=== PATIENT | female | born 1950 | race Caucasian/White ===

== ENCOUNTER 2017-04-03 00:27 | Emergency (ER) | payer OTHER ==
[2017-04-03] MEDS ORDERED: LABETALOL SYRINGE 5 MG/ML ONE (01:30)
[2017-04-03] MEDS ORDERED: methylPREDNISolone SOD SUCCI 125 MG/2 ML VIAL ONE (01:30)
[2017-04-03] MEDS ORDERED: PROCHLORPERAZINE 10 MG TAB ONE (01:30)
[2017-04-03] MEDS ORDERED: diphenhydrAMINE 50 MG/ML 1 ML VIAL ONE (01:30)
[2017-04-03] MEDS ORDERED: SODIUM CHLORIDE 0.9% 250 ML BAG ONE (01:30)
[2017-04-03] MEDS ORDERED: ONDANSETRON 4 MG/2 ML VIAL ONE (01:30)
[2017-04-03] MEDS ORDERED: SODIUM CHLORIDE 0.9% 1,000 ML BAG ONE (01:30)
[2017-04-03] MEDS ORDERED: KETOROLAC 30 MG/ML 1 ML VIAL ONE (01:30)
--- NOTE | 2017-04-03 05:42 | CT ---
PROCEDURE: CT HEAD Without Contrast HISTORY: 66-year-old female with headache. COMPARISON: None TECHNIQUE: CT imaging was obtained through the head. Coronal and sagittal reformations were performed. DOSE: Total Exam volume computed tomography dose index (CTDIvol) = 60.3 mGy and Dose Length Product (DLP) = 1072.3 mGY-cm. This CT exam was performed using one or more of the following dose reduction techniques: automated exposure control, adjustment of the mA and/or kV according to patient size, and/or use of iterative reconstruction technique. FINDINGS: There is no evidence of acute intracranial hemorrhage, mass effect, or midline shift. The ventricles, sulci, and cisternal spaces are within normal limits for age. The vega-white matter differentiation is preserved. 5 millimeter rounded calcific density adjacent to the left frontal bone, incompletely characterized but may represent a small meningioma or dural calcification. If further imaging evaluation is clinically desired, contrast enhanced MRI may be considered. Intracranial arterial calcifications. The bony structures are intact. Visualized portions of the orbits are within normal limits. Opacity in the right mastoid air cells, nonspecific, but may be due to mastoiditis. Opacification of much of the ethmoid and maxillary sinuses. Air-fluid levels in the bilateral maxillary sinuses and left ethmoid air cells, likely due to acute sinusitis. Mucosal thickening in the frontal sinuses. Retention cyst in the right sphenoid sinus. Debris identified in the left sphenoid sinus. IMPRESSION: 1. No CT evidence of acute intracranial abnormality. 2. Sinus disease, likely acute in the ethmoid and maxillary sinuses. 3. Opacity in the right mastoid air cells, nonspecific but may be due to mastoiditis. 4. 5 millimeter rounded calcific density adjacent to the left frontal bone, incompletely characterized but may represent a small meningioma or dural calcification. If further imaging evaluation is clinically desired, contrast enhanced MRI may be considered. 5. Other findings as detailed above.
== END 2017-04-03 04:10 | disposition home or self-care (01) ==
LOC: EC 00:27
DX: G43.909 Migraine, unspecified, not intractable, without status migrainosus (principal); I10 Essential (primary) hypertension; F17.200 Nicotine dependence, unspecified, uncomplicated; Z86.73 Personal history of transient ischemic attack (TIA), and cerebral infarction without residual deficits; Z79.899 Other long term (current) drug therapy; Z88.0 Allergy status to penicillin
CPT/HCPCS: 70450; 96361; 96365; 96375; 99283

== ENCOUNTER 2017-04-05 13:55 | Observation (INO) | payer OTHER ==
[2017-04-05] MEDS ORDERED: NITROGLYCERIN-D5W PMX 50 MG in DEXTROSE/WATER 1 250ML.BAG IV ONE (14:57)
[2017-04-05] MEDS ORDERED: MORPHINE SULFATE 10 MG/ML SYRINGE IV ONE (14:57)
--- NOTE | 2017-04-05 15:09 | ED ---
Headache HPI - General Chief Complaint: Headache Stated Complaint: migraines/high BP Time Seen by Provider: 04/05/17 14:34 Mode of arrival: wheelchair Limitations: no limitations - History of Present Illness Initial Comments: Patient is a 66-year-old female who presents with a chief complaint of headache for one week. The patient states that she does not have a history of headaches , and that she has been seen 3 different times this week for her headache. She states that she did see her primary care physician who switched her blood pressure medication because she was hypertensive. Patient returns today because her headache continues. The patient states that her headache was a gradual onset. She admits to sensitivity to light and sound, but most specifically movement. Patient states that she feels somewhat off balance. There are no alleviating factors. Timing is constant. Patient has a history of hypertension, and diabetes. She's been a smoker of one half packs per day since she was 17 years old. - Related Data Home Medications Medication Instructions Recorded Confirmed Albuterol Sulfate [Ventolin HFA] 1 - 2 puff INHALATION RT-Q6H PRN 12/31/1304/05 Cholecalciferol [Vitamin D3] 1,000 unit PO DAILY 12/31/13 04/05/17 Loratadine [Claritin] 10 mg PO DAILY 04/05/17 04/05/17 Losartan [Cozaar] 25 mg PO DAILY 04/05/17 04/05/17 Naproxen Sodium [Aleve] 220 mg PO BID PRN 04/05/17 04/05/17 Pediatric Multivitamin No.144 1 tab PO DAILY 04/05/17 04/05/17 [Children's Chewable Vitamin] SUMAtriptan SUCCINATE [Imitrex] 50 mg PO ONCE PRN 04/05/17 04/05/17 Vitamin B Complex 1 cap PO DAILY 04/05/17 04/05/17 predniSONE See Taper PO DAILY 04/05/17 04/05/17 Allergies Allergy/AdvReac Type Severity Reaction Status Date / Time amoxicillin [Amoxicillin] Allergy Rash/Hives Verified 04/05/17 14:31 Review of Systems ROS Statement: Those systems with pertinent positive or pertinent negative responses have been documented in the HPI. ROS Other: All systems not noted in ROS Statement are negative. Constitutional: Denies: fever Eyes: Reports: vision change ENT: Denies: ear pain, throat pain Respiratory: Denies: cough Cardiovascular: Denies: chest pain Endocrine: Denies: fatigue Gastrointestinal: Reports: nausea. Denies: abdominal pain, vomiting Genitourinary: Denies: dysuria Musculoskeletal: Denies: back pain Skin: Denies: rash Neurological: Reports: headache Past Medical History Past Medical History: Heart Failure, Diabetes Mellitus, Hyperlipidemia, Hypertension History of Any Multi-Drug Resistant Organisms: None Reported Past Surgical History: Tubal Ligation Past Psychological History: Depression, Panic Disorder Smoking Status: Current every day smoker Past Alcohol Use History: None Reported Past Drug Use History: None Reported General Exam Limitations: no limitations General appearance: alert, in no apparent distress Head exam: Present: atraumatic, normocephalic Eye exam: Present: PERRL ENT exam: Present: normal exam Neck exam: Present: normal inspection, full ROM Respiratory exam: Present: decreased breath sounds Cardiovascular Exam: Present: regular rate, normal rhythm GI/Abdominal exam: Present: soft. Absent: distended, tenderness Rectal exam: Present: deferred Extremities exam: Present: normal inspection Back exam: Present: normal inspection, full ROM Neurological exam: Present: alert, oriented X3, CN II-XII intact, normal gait. Absent: motor sensory deficit Psychiatric exam: Present: normal affect, normal mood Skin exam: Present: warm, dry, intact Course Vital Signs 04/05/17 04/05/17 14:02 15:54 Temperature 97.3 F L Pulse Rate 57 L 65 Respiratory 16 17 Rate Blood Pressure 189/77 171/73 O2 Sat by Pulse 97 94 L Oximetry Medical Decision Making - Medical Decision Making Patient presents with a chief complaint of a headache for a week without previous history of headaches. Review of chart shows the patient was diagnosed with migraine type headache on her last visit to the ER, and she had a normal CT of the head without contrast. On examination today, her blood pressure is 203/100 in the exam room. I spoke with Dr. Gallagher who would like to hold on a nitro drip currently, and check the patient's renal function. If the patient's renal function is stable, she'll be started on lisinopril and admitted to observation. EKG performed at 3:27 PM shows sinus bradycardia with a rate of 57 bpm. EKG is otherwise nonspecific 4:32 PM Laboratory evaluation this patient is unremarkable. Renal function is stable therefore patient was given 20 mg of lisinopril. She will be admitted to observation under Dr. Gallagher. - Lab Data Result diagrams: 04/05/17 14:49 04/05/17 14:49 Lab Results 04/05/17 04/05/17 Range/Units 14:49 14:49 WBC 14.2 H (3.8-10.6) k/uL RBC 4.52 (3.80-5.40) m/uL Hgb 13.9 (11.4-16.0) gm/dL Hct 42.2 (34.0-46.0) % MCV 93.3 (80.0-100.0) fL MCH 30.8 (25.0-35.0) pg MCHC 33.0 (31.0-37.0) g/dL RDW 14.2 (11.5-15.5) % Plt Count 213 (150-450) k/uL Neutrophils % 74 % Lymphocytes % 20 % Monocytes % 5 % Eosinophils % 1 % Basophils % 0 % Neutrophils # 10.4 H (1.3-7.7) k/uL Lymphocytes # 2.8 (1.0-4.8) k/uL Monocytes # 0.6 (0-1.0) k/uL Eosinophils # 0.2 (0-0.7) k/uL Basophils # 0.0 (0-0.2) k/uL Sodium 140 (137-145) mmol/L Potassium 4.3 (3.5-5.1) mmol/L Chloride 101 (98-107) mmol/L Carbon Dioxide 30 (22-30) mmol/L Anion Gap 9 mmol/L BUN 19 H (7-17) mg/dL Creatinine 0.70 (0.52-1.04) mg/dL Est GFR (MDRD) Af Amer >60 (>60 ml/min/1.73 sqM) Est GFR (MDRD) Non-Af >60 (>60 ml/min/1.73 sqM) Glucose 100 H (74-99) mg/dL Calcium 10.0 (8.4-10.2) mg/dL Total Bilirubin 0.7 (0.2-1.3) mg/dL AST 150 H (14-36) U/L ALT 275 H (9-52) U/L Alkaline Phosphatase 85 (38-126) U/L Total Protein 6.9 (6.3-8.2) g/dL Albumin 4.0 (3.5-5.0) g/dL Disposition Clinical Impression: Hypertension, Intractable headache Disposition: ADMITTED IP TO THIS HOSP Condition: Good Referrals: David Lindquist DO [Primary Care Provider] - 1-2 days Decision to Admit Reason: Admit from [facility] - Out of Hospital Transfer - Req. Specs Out of Hospital Transfer - Requested Specifics: Other Non-Acute
[2017-04-05 15:22] LABS: Basophils % (A) 0 %; CH 30.6; Eosinophils # (A) 0.2 k/uL (0-0.7); Eosinophils % (A) 1 %; HCT 42.2 % (34.0-46.0); HDW 2.37; HGB 13.9 gm/dL (11.4-16.0); Luc # (Auto) 0.11; Luc % (Auto) 1; Lymphocytes # (A) 2.8 k/uL (1.0-4.8); Lymphocytes % (A) 20 %; MCH 30.8 pg (25.0-35.0); MCV 93.3 fL (80.0-100.0); Mean Platelet Volume 9.2; Monocytes # (A) 0.6 k/uL (0-1.0); Monocytes % (A) 5 %; Neutrophils # (A) 10.4 k/uL (1.3-7.7); Neutrophils % (A) 74 %; RBC 4.52 m/uL (3.80-5.40); RDW 14.2 % (11.5-15.5); WBC 14.2 k/uL (3.8-10.6); WBC (Perox) 13.65
[2017-04-05] MEDS ORDERED: MORPHINE SULFATE 4 MG/ML SYRINGE IV ONE (15:30)
[2017-04-05 15:32] LABS: ALT 275 U/L (9-52); AST 150 U/L (14-36); Alkaline Phosphatase 85 U/L (38-126); Anion Gap 9 mmol/L; Blood Urea Nitrogen 19 mg/dL (7-17); Carbon Dioxide 30 mmol/L (22-30); Chloride 101 mmol/L (98-107); Glucose 100 mg/dL (74-99); Non-African American GFR(MDRD) >60 (>60 ml/min/1.73 sqM); Potassium 4.3 mmol/L (3.5-5.1); Sodium 140 mmol/L (137-145); Total Bilirubin 0.7 mg/dL (0.2-1.3); Total Protein 6.9 g/dL (6.3-8.2)
[2017-04-05] MEDS ORDERED: ONDANSETRON 4 MG/2 ML VIAL IVP STA (15:49)
[2017-04-05] MEDS ORDERED: LISINOPRIL 20 MG TAB PO STA (16:06)
[2017-04-05] MEDS ORDERED: NALOXONE 0.4 MG/ML 1 ML VIAL IV PRN (16:33)
[2017-04-05 19:00] VITALS: BMI 31.9
[2017-04-05] MEDS ORDERED: NAPROXEN 250 MG TAB PO PRN (19:16)
[2017-04-05] MEDS ORDERED: ALBUTEROL NEBULIZED 2.5 MG/3 ML INHALATION PRN (19:16)
[2017-04-05] MEDS ORDERED: SUMAtriptan SUCCINATE 50 MG TAB PO PRN (19:16)
--- NOTE | 2017-04-05 19:44 | P.HPIM ---
History of Present Illness 66-year-old female came in with comments of headache for going on for about a week patient does have history of typical migraine uncomplicated light bothers her patient's headache is bit better now patient that which is elevated initially was thought to have hypertensive emergency but the patient doesn't have any other symptoms of evidence emerges including confusion, chest pain, abdominal pain, shortness of breath. Patient's headache is contributing to her elevated blood pressure because of which I'm not increasing her antidepressant medications patient is given lisinopril earlier today in ER. Patient has normal kidney function. Patient denied any fever, chills, nausea, vomiting patient denied any nuchal rigidity does have leukocytosis secondary to prednisone she was receiving at home no fever no flulike symptoms. Her headache is constant patient does smoke half a pack of cigarettes a day Review of Systems REVIEW OF SYSTEMS: CONSTITUTIONAL: No fever, no malaise, no fatigue. HEENT: No recent visual problems or hearing problems. Denied any sore throat. CARDIOVASCULAR: No chest pain, orthopnea, PND, no palpitations, no syncope. PULMONARY: No shortness of breath, no cough, no hemoptysis. GASTROINTESTINAL: No diarrhea, no nausea, no vomiting, no abdominal pain. Normoactive bowel sounds. NEUROLOGICAL: no weakness, no numbness. HEMATOLOGICAL: Denies any bleeding or petechiae. GENITOURINARY: Denies any burning micturition, frequency, or urgency. MUSCULOSKELETAL/RHEUMATOLOGICAL: Denies any joint pain, swelling, or any muscle pain. ENDOCRINE: Denies any polyuria or polydipsia. The rest of the 14-point review of systems is negative. Past Medical History Past Medical History: Heart Failure, Diabetes Mellitus, Hyperlipidemia, Hypertension History of Any Multi-Drug Resistant Organisms: None Reported Past Surgical History: Tubal Ligation Past Anesthesia/Blood Transfusion Reactions: No Reported Reaction Past Psychological History: Depression, Panic Disorder Smoking Status: Current every day smoker Past Alcohol Use History: None Reported Past Drug Use History: None Reported - Past Family History Mother Additional Family Medical History / Comment(s): suicide Medications and Allergies Home Medications Medication Instructions Recorded Confirmed Type Albuterol Sulfate [Ventolin HFA] 1 - 2 puff INHALATION RT-Q6H PRN 12/31/1304/05 History Cholecalciferol [Vitamin D3] 1,000 unit PO DAILY 12/31/13 04/05/17 History Loratadine [Claritin] 10 mg PO DAILY 04/05/17 04/05/17 History Losartan [Cozaar] 25 mg PO DAILY 04/05/17 04/05/17 History Naproxen Sodium [Aleve] 220 mg PO BID PRN 04/05/17 04/05/17 History Pediatric Multivitamin No.144 1 tab PO DAILY 04/05/17 04/05/17 History [Children's Chewable Vitamin] SUMAtriptan SUCCINATE [Imitrex] 50 mg PO ONCE PRN 04/05/17 04/05/17 History Vitamin B Complex 1 cap PO DAILY 04/05/17 04/05/17 History predniSONE See Taper PO DAILY 04/05/17 04/05/17 History Allergies Allergy/AdvReac Type Severity Reaction Status Date / Time amoxicillin [Amoxicillin] Allergy Rash/Hives Verified 04/05/17 14:31 Physical Exam Vitals: Vital Signs Temp Pulse Pulse Resp BP BP Pulse Ox 04/05/17 18:26 18 04/05/17 18:24 97.4 F L 57 L 18 141/55 97 04/05/17 17:24 98.5 F 61 17 150/70 94 L 04/05/17 15:54 65 17 171/73 94 L 04/05/17 14:02 97.3 F L 57 L 16 189/77 97 Intake and Output 04/05/17 04/05/17 04/05/17 06:59 14:59 22:59 Other: Weight 77.111 kg 76.7 kg Patient Weight 04/06/17 06:59 Weight 76.7 kg PHYSICAL EXAMINATION: GENERAL: The patient is alert and oriented x3, patient isn't distress because of headache Well developed, well nourished. HEENT: Pupils are round and equally reacting to light. EOMI. No scleral icterus. No conjunctival pallor. Normocephalic, atraumatic. No pharyngeal erythema. No thyromegaly. CARDIOVASCULAR: S1 and S2 present. No murmurs, rubs, or gallops. PULMONARY: Chest is clear to auscultation, no wheezing or crackles. ABDOMEN: Soft, nontender, nondistended, normoactive bowel sounds. No palpable organomegaly. MUSCULOSKELETAL: No joint swelling or deformity. EXTREMITIES: No cyanosis, clubbing, or pedal edema. NEUROLOGICAL: Gross neurological examination did not reveal any focal deficits. SKIN: No rashes. Results CBC & Chem 7: 04/05/17 14:49 04/05/17 14:49 Labs: Abnormal Lab Results - Last 24 Hours (Table) 04/05/17 04/05/17 Range/Units 14:49 14:49 WBC 14.2 H (3.8-10.6) k/uL Neutrophils # 10.4 H (1.3-7.7) k/uL BUN 19 H (7-17) mg/dL Glucose 100 H (74-99) mg/dL AST 150 H (14-36) U/L ALT 275 H (9-52) U/L Thrombosis Risk Factor Assmnt - Choose All That Apply Any of the Below Risk Factors Present?: Yes Each Factor Represents 1 point: Abnormal pulmonary function (COPD), Hx of IBD, Obesity (BMI >25) Other Risk Factors: Yes Each Risk Factor Represents 2 Points: Age 61-74 years Other congenital or acquired thrombophilia - If yes, enter type in comment: No Thrombosis Risk Factor Assessment Total Risk Factor Score: 5 Thrombosis Risk Factor Assessment Level: High Risk Assessment and Plan Plan: #1 severe headache secondary to migraine neurology will be consulted will continue with her steroid we will use ketorolac for pain we will also order her Imitrex. #2 hypertension uncontrolled blood pressures secondary to headache pain control. #3 type 2 diabetes mellitus: Patient is not in any diabetic medications will obtain hemoglobin A1c #4 nicotine abuse: Counseling was provided
[2017-04-05] MEDS: PANTOPRAZOLE 40 MG/10 ML VIAL IVP SCH (21:44)
[2017-04-05] MEDS: KETOROLAC 30 MG/ML 1 ML VIAL IVP PRN (21:44)
[2017-04-05] MEDS: SODIUM CHLORIDE 0.9% 1,000 ML IV SCH (21:45)
[2017-04-06 01:05] LABS: Glucose,Whole Blood 132 mg/dL (75-99)
[2017-04-06] MEDS ORDERED: hydrALAZINE HCL 50 MG TAB PO STA (01:19)
[2017-04-06] MEDS: ONDANSETRON 4 MG/2 ML VIAL IVP PRN ×2 (01:33→12:03)
[2017-04-06] MEDS: KETOROLAC 30 MG/ML 1 ML VIAL IVP PRN ×3 (03:41→21:30)
[2017-04-06] MEDS: SODIUM CHLORIDE 0.9% 1,000 ML IV SCH ×2 (06:05→15:42)
[2017-04-06 07:26] LABS: CH 29.9; CHCM 31.1; HCT 41.1 % (34.0-46.0); HDW 2.22; HGB 13.3 gm/dL (11.4-16.0); MCH 31.3 pg (25.0-35.0); MCHC 32.3 g/dL (31.0-37.0); MCV 96.9 fL (80.0-100.0); Mean Platelet Volume 9.1; RBC 4.24 m/uL (3.80-5.40); RDW 15.1 % (11.5-15.5); WBC 16.4 k/uL (3.8-10.6)
[2017-04-06 08:02] LABS: ALT 199 U/L (9-52); AST 74 U/L (14-36); Alkaline Phosphatase 75 U/L (38-126); Anion Gap 7 mmol/L; Blood Urea Nitrogen 15 mg/dL (7-17); Calcium 9.3 mg/dL (8.4-10.2); Carbon Dioxide 32 mmol/L (22-30); Chloride 99 mmol/L (98-107); Glucose 94 mg/dL (74-99); Non-African American GFR(MDRD) >60 (>60 ml/min/1.73 sqM); Potassium 4.1 mmol/L (3.5-5.1); Sodium 138 mmol/L (137-145); Total Bilirubin 0.6 mg/dL (0.2-1.3); Total Protein 6.4 g/dL (6.3-8.2)
[2017-04-06] MEDS: NICOTINE 21MG/24HR PATCH TRANSDERM SCH (08:06)
[2017-04-06] MEDS ORDERED: ZOLPIDEM 5 MG TAB PO PRN (08:27)
[2017-04-06] MEDS: ALPRAZolam 0.25 MG TAB PO PRN ×2 (08:44→15:42)
[2017-04-06] MEDS: PANTOPRAZOLE 40 MG/10 ML VIAL IVP SCH (08:44)
[2017-04-06] MEDS: LOSARTAN 50 MG TAB PO SCH (08:46)
--- NOTE | 2017-04-06 08:51 | P.PN ---
Subjective Since headache is better but is tremulous patient apparently didn't sleep for few days which is contributing to her headache patient appears to be more anxious and depressed. I'll consult psychiatry patient will be started on Xanax and as-needed basis for a anxiety will be given Dainamichael vázquez have headache although is better patient becomes nauseous because of ketorolac I believe patient is on Protonix which will continue if he continued to become nauseous and throws up will discontinue ketorolac. Patient is tremulous because of steroid which will be discontinued, which is contributing to her anxiety and lack of sleep. Constitutional: Tremulous anxious Cardio vascular: denied any chest pain, palpitations Gastrointestinal denied any nausea vomiting Pulmonary: Denied any shortness of breath cough Neurologic denied any new focal deficits Objective - Vital Signs Vital signs: Vital Signs Temp 98.3 F 04/06/17 08:00 Pulse 92 04/06/17 08:00 Resp 20 04/06/17 08:00 BP 168/84 04/06/17 08:00 Pulse Ox 96 04/06/17 08:00 Intake & Output 04/05/17 04/06/17 04/06/17 18:59 06:59 18:59 Output Total 1150 Balance -1150 Weight 76.7 kg Output: Urine 1150 Other: Voiding Method Toilet - Exam PHYSICAL EXAMINATION: GENERAL: The patient is alert and oriented x3, not in any acute distress. tremulous and anxious HEENT: Pupils are round and equally reacting to light. EOMI. No scleral icterus. No conjunctival pallor. Normocephalic, atraumatic. No pharyngeal erythema. No thyromegaly. CARDIOVASCULAR: S1 and S2 present. No murmurs, rubs, or gallops. PULMONARY: Chest is clear to auscultation, no wheezing or crackles. ABDOMEN: Soft, nontender, nondistended, normoactive bowel sounds. No palpable organomegaly. MUSCULOSKELETAL: No joint swelling or deformity. EXTREMITIES: No cyanosis, clubbing, or pedal edema. NEUROLOGICAL: Gross neurological examination did not reveal any focal deficits. SKIN: No rashes. - Labs CBC & Chem 7: 04/06/17 06:17 04/06/17 06:17 Labs: Abnormal Lab Results - Last 24 Hours (Table) 04/05/17 04/05/17 04/06/17 Range/Units 14:49 14:49 01:03 WBC 14.2 H (3.8-10.6) k/uL Neutrophils # 10.4 H (1.3-7.7) k/uL Carbon Dioxide (22-30) mmol/L BUN 19 H (7-17) mg/dL Glucose 100 H (74-99) mg/dL POC Glucose (mg/dL) 132 H (75-99) mg/dL AST 150 H (14-36) U/L ALT 275 H (9-52) U/L 04/06/17 04/06/17 Range/Units 06:17 06:17 WBC 16.4 H (3.8-10.6) k/uL Neutrophils # (1.3-7.7) k/uL Carbon Dioxide 32 H (22-30) mmol/L BUN (7-17) mg/dL Glucose (74-99) mg/dL POC Glucose (mg/dL) (75-99) mg/dL AST 74 H (14-36) U/L ALT 199 H (9-52) U/L Assessment and Plan Plan: #1 severe headache secondary to migraine neurology will be consulted will continue ketorolac for pain we will also order her Imitrex. #2 hypertension uncontrolled blood pressures secondary to headache pain control. #3 type 2 diabetes mellitus: Patient is not in any diabetic medications will obtain hemoglobin A1c #4 nicotine abuse: Counseling was provided 5 insomnia, depression and anxiety
[2017-04-06] MEDS ORDERED: predniSONE 10 MG TAB PO SCH (09:00)
[2017-04-06] MEDS ORDERED: LOSARTAN 50 MG TAB PO SCH (09:00)
[2017-04-06 17:34] VITALS: RESP 20
--- NOTE | 2017-04-06 22:52 | P.CNNES ---
History of Present Illness Consult date: 04/06/17 Reason for Consult: Patient admitted with chronic headaches. History of Present Illness: This patient is a 66-year-old left-handed white female who is being evaluated for intractable headache pain. Patient states that she has been dealing with a severe headache for the past 1 week. The headaches are mostly bifrontal and bitemporal in location. She had seen her primary care physician in [place] and was advised to go to the emergency room due to the severity of her headaches. She was seen in the emergency room on 04/03/2017 and underwent a computed tomography scan of the brain. A CAT scan of the brain revealed no acute intracranial abnormality however there was finding of a possible left frontal meningioma. Patient denies any previous history of abnormal CAT scan of the brain. Patient was discharged from the ER on 04/03/2017 but returned to the ER yesterday as her headaches still became more severe and intense. She was admitted to hospital for further management. As noted the CAT scan of the brain performed on 04/03/2017 revealed a 5 mm calcified density in the left frontal bone. It was recommended the patient have an enhanced MRI of the brain for further assessment. Patient states that she does get bifrontal headaches. They do seem to be slightly more severe on her left side. She is also noting increase neck pain over the last 2 weeks. She does do a lot of crocheting at home and does tend to keep her head in a flexed position frequently when she is sitting. She does have evidence of bilateral occipital pain on palpation as well today. She has been given some pain medications which only helps to take away the edge edge off in terms of the pain severity. We did review the results of the CAT scan today with the patient. We are recommending that she should have a MRI of the brain for further evaluation as recommended by radiology. Patient states that her headache pain intensity is 10 over 10 in intensity. She states that the intensity is not really E since last week. She was given some Toradol which has taken the edge off of the pain but still seems to recur quite intense throughout the day. Patient has no previous history of head trauma or head injury. She denies any whiplash injury to the neck. She has no previous history of migraine headaches in the past. The patient is now admitted and neurology has been consulted for further evaluation and recommendations. Review of Systems Constitutional: Denies chills, Denies fever Eyes: denies blurred vision, denies pain Ears, nose, mouth and throat: Denies headache, Denies sore throat Cardiovascular: Denies chest pain, Denies shortness of breath Respiratory: Denies cough Gastrointestinal: Denies abdominal pain, Denies diarrhea, Denies nausea, Denies vomiting Genitourinary: Denies dysuria, Denies hematuria Musculoskeletal: Denies myalgias Integumentary: Denies pruritus, Denies rash Neurological: Reports confusion, Reports headaches, Reports migraines, Reports paresthesias, Denies numbness, Denies weakness Psychiatric: Denies anxiety, Denies depression Endocrine: Denies fatigue, Denies weight change Past Medical History Past Medical History: Heart Failure, Diabetes Mellitus, Hyperlipidemia, Hypertension History of Any Multi-Drug Resistant Organisms: None Reported Past Surgical History: Tubal Ligation Past Anesthesia/Blood Transfusion Reactions: No Reported Reaction Past Psychological History: Depression, Panic Disorder Smoking Status: Current every day smoker Past Alcohol Use History: None Reported Past Drug Use History: None Reported - Past Family History Mother Additional Family Medical History / Comment(s): suicide Medications and Allergies Home Medications Medication Instructions Recorded Confirmed Type Albuterol Sulfate [Ventolin HFA] 1 - 2 puff INHALATION RT-Q6H PRN 12/31/1304/05 History Cholecalciferol [Vitamin D3] 1,000 unit PO DAILY 12/31/13 04/05/17 History Loratadine [Claritin] 10 mg PO DAILY 04/05/17 04/05/17 History Losartan [Cozaar] 25 mg PO DAILY 04/05/17 04/05/17 History Naproxen Sodium [Aleve] 220 mg PO BID PRN 04/05/17 04/05/17 History Pediatric Multivitamin No.144 1 tab PO DAILY 04/05/17 04/05/17 History [Children's Chewable Vitamin] SUMAtriptan SUCCINATE [Imitrex] 50 mg PO ONCE PRN 04/05/17 04/05/17 History Vitamin B Complex 1 cap PO DAILY 04/05/17 04/05/17 History predniSONE See Taper PO DAILY 04/05/17 04/05/17 History Omeprazole [PriLOSEC] 40 mg PO GAEL #14 04/06/17 Rx Allergies Allergy/AdvReac Type Severity Reaction Status Date / Time amoxicillin [Amoxicillin] Allergy Rash/Hives Verified 04/05/17 14:31 Physical Examination - Vital Signs Vital Signs: Vital Signs Temp Pulse Pulse Resp BP BP BP 04/06/17 11:00 97.4 F L 75 24 167/88 04/06/17 08:00 98.3 F 92 20 168/84 04/06/17 03:55 76 20 156/58 04/06/17 00:40 98.3 F 84 18 220/90 190/92 04/05/17 21:52 18 04/05/17 21:41 98.3 F 72 18 138/94 04/05/17 18:26 18 04/05/17 18:24 97.4 F L 57 L 18 141/55 04/05/17 17:24 98.5 F 61 17 150/70 04/05/17 15:54 65 17 171/73 04/05/17 14:02 97.3 F L 57 L 16 189/77 Pulse Ox 04/06/17 11:00 95 04/06/17 08:00 96 04/06/17 03:55 95 04/06/17 00:40 92 L 04/05/17 21:52 04/05/17 21:41 95 04/05/17 18:26 04/05/17 18:24 97 04/05/17 17:24 94 L 04/05/17 15:54 94 L 04/05/17 14:02 97 Intake and Output 04/05/17 04/06/17 04/06/17 22:59 06:59 14:59 Intake Total 200 Output Total 350 800 550 Balance -350 -800 -350 Intake: Oral 200 Output: Urine 350 800 550 Other: Voiding Method Toilet Weight 76.7 kg - Constitutional General appearance: average body habitus, cooperative - EENT EENT: PERRL, mucous membranes moist - Respiratory Respiratory: lungs clear, normal breath sounds - Cardiovascular Cardiovascular: regular rate, normal S1, normal S2 Extremities: no peripheral edema bilaterally - Gastrointestinal Gastrointestinal: normoactive bowel sounds - Integumentary Integumentary: normal - Neurologic Cranial nerve examination: PERRL, EOMI, VFF, V1/V2/V3 grossly intact, face symmetric, tongue midline, intact gag reflex, intact corneal reflex, normal palatal elevation Speech examination: intact Motor examination - right side: 4/5: biceps, triceps, wrist flexion, wrist extension, escrow assistant, hip flexors, knee extensors, dorsiflexion, toe extension (EHL) , plantarflexion Motor examination - left side: 4/5: biceps, triceps, wrist flexion, wrist extension, escrow assistant, hip flexors, knee extensors, dorsiflexion, toe extension (EHL) , plantarflexion Detailed sensory examination: intact Reflex and gait examination: intact Reflexes: 1+: ankle, bicep, knee, tricep - Musculoskeletal Musculoskeletal: no pain - Psychiatric Psychiatric: mood/affect appropriate, cooperative Results - Laboratory Findings CBC and BMP: 04/06/17 06:17 04/06/17 06:17 Abnormal Lab Findings: Abnormal Labs 04/05/17 04/05/17 04/06/17 14:49 14:49 01:03 WBC 14.2 H Neutrophils # 10.4 H Carbon Dioxide BUN 19 H Glucose 100 H POC Glucose (mg/dL) 132 H AST 150 H ALT 275 H 04/06/17 04/06/17 06:17 06:17 WBC 16.4 H Neutrophils # Carbon Dioxide 32 H BUN Glucose POC Glucose (mg/dL) AST 74 H ALT 199 H Assessment and Plan (1) Occipital neuritis Current Visit: Yes Status: Acute SNOMED Code(s): 92865914 (2) Hypertensive encephalopathy Current Visit: Yes Status: Acute SNOMED Code(s): 25419976 (3) Intractable headache Current Visit: Yes Status: Acute SNOMED Code(s): 96181007 (4) Hypertension Current Visit: Yes Status: Acute SNOMED Code(s): 24119951 Plan: This patient is a 66-year-old female who was admitted to hospital with intractable headache pain. She is been suffering with recurrent headache symptoms for the past 1 week. She was seen in the emergency room at [facility] on 04/03/2015. She underwent a computed tomography scan of the brain and was discharged after receiving some pain medication. Headache intensity worsened and she was brought back to the emergency room on 2016. She was admitted to Hospital. Her neurological examination reveals the patient to have bilateral occipital neuritis. We've also recommended that she undergo laboratory testing to rule out temporal arteritis. We did review the computed tomography scan of the brain results with the patient in detail today. We are recommending an MRI of the brain for further evaluation of the possible left frontal lobe meningioma. We recommend patient undergo bilateral occipital nerve block procedure for treatment of the occipital neuritis. She is also instructed in applying moist heat to the head and neck region daily even after the procedure is completed. We will continue close neurological follow-up of this patient during this admission. Her overall prognosis at this time remains guarded. Time with Patient: Greater than 30
[2017-04-07] MEDS: SODIUM CHLORIDE 0.9% 1,000 ML IV SCH ×2 (00:49→09:30)
[2017-04-07] MEDS: ALPRAZolam 0.25 MG TAB PO PRN ×2 (02:09→08:12)
[2017-04-07] MEDS: KETOROLAC 30 MG/ML 1 ML VIAL IVP PRN ×3 (04:05→14:56)
[2017-04-07] MEDS: PANTOPRAZOLE 40 MG/10 ML VIAL IVP SCH (08:05)
[2017-04-07] MEDS: NICOTINE 21MG/24HR PATCH TRANSDERM SCH (08:06)
[2017-04-07] MEDS: LOSARTAN 50 MG TAB PO SCH (09:00)
[2017-04-07 09:17] VITALS: BP 141/53; PULSE 79; TEMP 97.5
--- NOTE | 2017-04-07 11:57 | P.CN ---
Psychiatric Consult - . Consult date: 04/07/17 Consult:: 04/07/17 11:51 IDENTIFYING DATA: 66-year-old female patient HPI: patient is admitted to the medical floor [facility] with complaints of a headache and elevated blood pressure phone 1 weeks time. She does state currently that her headache is better. She is eating better now. She does relate some recent stress in terms announcing I did with her ex- whom she lives with. She states that he does get mad at her. She denies any significant depression but admits to having anxiety and being a worrier. She said when she had the migraine headaches she had some feelings like she would be better off if she weren't here but no thoughts of suicide.per staff she was exhibiting some symptoms of anxiety yesterday and seemed to have benefit with when necessary Xanax PAST PSYCHIATRIC HISTORY: she has seen a counselor in the past. She has been on Paxil in the past which she came off of because she didn't think she needed it, does state that it helped her. She never had any psychiatric hospitalizations. Says when she was younger she had a suicide attempt a couple of times by overdose. PMH:migraine, diabetes mellitus, hyperlipidemia, hypertension, heart failure ALLERGIES: amoxicillin MEDICATIONS: Ventolin when necessary, Xanax 0.25 mg 3 times a day when necessary , Toradol, Cozaar, Narcan when necessary, Naprosyn, Habitrol, Zofran, Protonix, Imitrex when necessary, Ambien when necessary CHEMICAL DEPENDENCY HISTORY: she does smoke cigarettes but otherwise denies drugs or alcohol use. FAMILY PSYCHIATRIC HISTORY: her mom had history of depression and committed suicide FAMILY CHEMICAL DEPENDENCY HISTORY: none known at this time SOCIAL HISTORY: currently lives with her ex-. She is not currently working. She's been 3 times and 3 times. She has 3 children. MENTAL STATUS EXAM: she is alert and cooperative with the interview. Her speech is fluent, not rapid or pressured. Her thought processes organized. Her mood is described as "feel good." She denies any recent or current thoughts of harm to self or others. No evidence of psychosis or agitation. Cognitively she appears very grossly intact. IMPRESSIONS: generalized anxiety disorder PLAN: we discussed the treatment option of reinitiating Paxil to help treat anxiety, which she seems to have had a positive response to in the past. Patient wishes not to initiate at this time due to concern of some side effects. We'll provide the patient with outpatient referral sheet for initiating outpatient treatment. Psychiatry can follow up with the patient to monitor her status.
--- NOTE | 2017-04-07 13:48 | P.DS ---
Providers Date of admission: 04/05/17 16:33 Attending physician: Sweetie Gallagher Consults: 04/05/17 19:35 Consult Physician Routine Consulting Provider: Nathalia Doherty Consult Reason/Comments: Headache Do you want consulting provider notified?: Yes 04/06/17 08:42 Consult Physician Urgent Consulting Provider: Danica Figueredo Consult Reason/Comments: agitation, restless Do you want consulting provider notified?: Yes 04/06/17 15:59 Consult Physician Urgent Consulting Provider: Mc Ramsey Consult Reason/Comments: anxiety Do you want consulting provider notified?: Yes 04/07/17 08:00 Consult to Anesthesia Urgent Consulting Provider: Anesthesia,Services Consult Reason/Comments: Bilateral occipital nerve blocks. Primary care physician: David Lindquist [facility] Course: Since headache is better but is tremulous patient apparently didn't sleep for few days which is contributing to her headache patient appears to be more anxious and depressed. I'll consult psychiatry patient will be started on Xanax and as-needed basis for a anxiety will be given Tera vázquez have headache although is better patient becomes nauseous because of ketorolac I believe patient is on Protonix which will continue if he continued to become nauseous and throws up will discontinue ketorolac. Patient is tremulous because of steroid which will be discontinued, which is contributing to her anxiety and lack of sleep. 04/07/2017 Patient's symptoms significantly improved after Xanax and discontinuation of prednisone. Patient was able to sleep last night patient is looking much better today patient further workup with MRI and the EEG can be done as an outpatient. Neurology believes patient has occipital neuralgia for which the recommending anesthesia to do occipital nerve block for which patient will be referred to anesthesia as an outpatient. Patient will be discharged today. Patient will follow with psychiatry as an outpatient PHYSICAL EXAMINATION: GENERAL: The patient is alert and oriented x3, not in any acute distress. Well developed, well nourished. HEENT: Pupils are round and equally reacting to light. EOMI. No scleral icterus. No conjunctival pallor. Normocephalic, atraumatic. No pharyngeal erythema. No thyromegaly. CARDIOVASCULAR: S1 and S2 present. No murmurs, rubs, or gallops. PULMONARY: Chest is clear to auscultation, no wheezing or crackles. ABDOMEN: Soft, nontender, nondistended, normoactive bowel sounds. No palpable organomegaly. MUSCULOSKELETAL: No joint swelling or deformity. EXTREMITIES: No cyanosis, clubbing, or pedal edema. NEUROLOGICAL: Gross neurological examination did not reveal any focal deficits. SKIN: No rashes. #1 severe headache secondary to migraine, occipital neuralgia and prednisone associated #2 hypertension uncontrolled blood pressures secondary to headache pain control. #3 type 2 diabetes mellitus: Patient is not in any diabetic medications will obtain hemoglobin A1c #4 nicotine abuse: Counseling was provided 5 insomnia, depression and anxiety Patient Condition at Discharge: Good Plan - Discharge Summary Discharge Rx Participant: Yes New Discharge Prescriptions: New Omeprazole [PriLOSEC] 40 mg PO -BRKFST #14 capsule. ALPRAZolam [Xanax] 0.25 mg PO TID PRN #30 tab PRN Reason: Anxiety Zolpidem [Ambien] 5 mg PO HS PRN #10 tab PRN Reason: Insomnia Continue Cholecalciferol [Vitamin D3] 1,000 unit PO DAILY Albuterol Sulfate [Ventolin HFA] 1 - 2 puff INHALATION RT-Q6H PRN PRN Reason: Shortness Of Breath Vitamin B Complex 1 cap PO DAILY Pediatric Multivitamin No.144 [Children's Chewable Vitamin] 1 tab PO DAILY SUMAtriptan SUCCINATE [Imitrex] 50 mg PO ONCE PRN PRN Reason: Migraine Headache Naproxen Sodium [Aleve] 220 mg PO BID PRN PRN Reason: Pain Loratadine [Claritin] 10 mg PO DAILY Losartan [Cozaar] 25 mg PO DAILY Discontinued predniSONE See Taper PO DAILY Discharge Medication List Albuterol Sulfate [Ventolin HFA] 1 - 2 puff INHALATION RT-Q6H PRN 12/31/13 [ History] Cholecalciferol [Vitamin D3] 1,000 unit PO DAILY 12/31/13 [History] Loratadine [Claritin] 10 mg PO DAILY 04/05/17 [History] Losartan [Cozaar] 25 mg PO DAILY 04/05/17 [History] Naproxen Sodium [Aleve] 220 mg PO BID PRN 04/05/17 [History] Pediatric Multivitamin No.144 [Children's Chewable Vitamin] 1 tab PO DAILY 04/05 [History] SUMAtriptan SUCCINATE [Imitrex] 50 mg PO ONCE PRN 04/05/17 [History] Vitamin B Complex 1 cap PO DAILY 04/05/17 [History] Omeprazole [PriLOSEC] 40 mg PO GAEL #14 capsule. 04/06/17 [Rx] ALPRAZolam [Xanax] 0.25 mg PO TID PRN #30 tab 04/07/17 [Rx] Zolpidem [Ambien] 5 mg PO HS PRN #10 tab 04/07/17 [Rx] Follow up Appointment(s)/Referral(s): Tay Doherty MD [STAFF PHYSICIAN] - 1 Week David Lindquist DO [Primary Care Provider] - 3 Days Activity/Diet/Wound Care/Special Instructions: ok to discharge home. Follow up phone call with Dr. Doherty in am regarding scheduling O.P. EEG, MRI, and possibly Occipital Nerve Block if warranted. Call M.D. or return to E.R. for worsening symptoms, problems, or concerns. CALL DR DOHERTY'S OFFICE SO THEY CAN FAX ORDER OVER FOR TEST TO MRI. TO CALL MRI SCHEDULING TOMORROW [phone] TO SCHEDULE OUTPATIENT MRI WITH AND WITHOUT CONTRAST AND MRA OF THE BRAIN. DIAGNOSIS: INTRACTABLE HEADACHES AND MENIGIOMA. TO CALL PAIN SERVICES TOMORROW AT [phone] FOR EVALUATION OF OCCIPITAL NERVE BLOCK. FOLLOW UP WITH DR DOHERTY IN 2 WEEKS, SOONER IF PROBLEMS OR CONCERNS. HE WILL ORDER EEG AT THAT TIME. Discharge Disposition: HOME SELF-CARE
--- NOTE | 2017-04-07 16:05 | P.PN ---
Subjective Progress Note Date: 04/07/17 This patient is a 66-year-old female seen yesterday neurology consultation for intractable headaches. She was found to have evidence of occipital neuritis. Her routine computed tomography scan of the brain revealed a questionable meningioma. We have recommended that she undergo an MRI and MRA of the brain for further evaluation. Patient's headache symptoms today is much improved. She is anxious to be discharged. We have recommended that she would need to have all of the studies performed as outpatient in follow-up for those results in 1-2 weeks following discharge. She has been seen by psychiatry today for evaluation of anxiety disorder. She does have evidence suggesting generalized anxiety disorder. Treatment options were discussed with the patient. She is to be started on Paxil. She is to follow-up in the outpatient psychiatry clinic. Patient continues to do well in terms of her headaches. We still would recommend that she follow up in the anesthesia department to have bilateral occipital nerve block procedures done as outpatient. This should significantly improve her overall headaches from recurring. We will continue close neurological follow-up for the patient. She is being readied for discharge home later today. Overall prognosis at this time remains guarded. Objective - Vital Signs Vital signs: Vital Signs Temp 97.5 F L 04/07/17 07:00 Pulse 79 04/07/17 07:00 Resp 20 04/07/17 07:00 BP 141/53 04/07/17 07:00 Pulse Ox 93 L 04/07/17 07:00 Intake & Output 04/06/17 04/07/17 04/07/17 18:59 06:59 18:59 Intake Total 200 600 Output Total 550 1100 Balance -350 -1100 600 Weight 76.7 kg Intake: Oral 200 600 Output: Urine 550 1100 Other: Voiding Method Toilet Toilet Toilet # Voids 1 3 - Exam Physical examination: PHYSICAL EXAMINATION: Patient is resting comfortably in bed. VITAL SIGNS: Blood pressure is [141/53]. Heart rate is [79]. Respiration is [20] . Temperature is [97.5]. HEENT: Head is atraumatic, neck is supple, there were no carotid bruits. CHEST: Lungs are clear to auscultation and percussion. CARDIAC: S1, S2 normal rate and rhythm. There is no murmur. ABDOMEN: Soft and nontender. Bowel sounds are present. EXTREMITIES: There is no pedal edema. Peripheral pulses are present. Neurological examination: Patient has a normal neurological examination today. She has minimal evidence of occipital tenderness to palpation bilaterally. - Labs CBC & Chem 7: 04/06/17 06:17 04/06/17 06:17 Labs: Abnormal Lab Results - Last 24 Hours (Table) 04/05/17 04/07/17 Range/Units 14:49 06:01 Hemoglobin A1c 6.5 H (4.0-6.0) % C-Reactive Protein 10.2 H (<10.0) mg/L Assessment and Plan (1) Occipital neuritis Status: Acute SNOMED Code(s): 94514694 (2) Hypertensive encephalopathy Status: Acute SNOMED Code(s): 18618500 (3) Intractable headache Status: Acute SNOMED Code(s): 79596461 (4) Hypertension Status: Acute SNOMED Code(s): 96877042 Plan: This patient is a 66-year-old female who was admitted to hospital with intractable headache pain. She is been suffering with recurrent headache symptoms for the past 1 week. She was seen in the emergency room at [facility] on 04/03/2015. She underwent a computed tomography scan of the brain and was discharged after receiving some pain medication. Headache intensity worsened and she was brought back to the emergency room on 2016. She was admitted to Hospital. Her neurological examination reveals the patient to have bilateral occipital neuritis. We've also recommended that she undergo laboratory testing to rule out temporal arteritis. We did review the computed tomography scan of the brain results with the patient in detail today. We are recommending an MRI of the brain for further evaluation of the possible left frontal lobe meningioma. We recommend patient undergo bilateral occipital nerve block procedure for treatment of the occipital neuritis. She is also instructed in applying moist heat to the head and neck region daily even after the procedure is completed. Patient has responded well today to treatment. She would like to be discharged home and will follow-up in the outpatient clinic for treatment of her occipital neuritis with a occipital nerve block procedure through anesthesia department. She will also be scheduled for MRI and MRA of the brain which may be done in the outpatient setting. Patient should follow-up in the outpatient neurology clinic in 1-2 weeks. We will continue close neurological follow-up of this patient during this admission. Her overall prognosis at this time remains guarded.
== END 2017-04-07 15:54 | disposition home or self-care (01) ==
LOC: EC 13:55 → 6PED 16:33
PROVIDERS: ADMIT Internal Medicine; ATTEND Internal Medicine
DX: G43.909 Migraine, unspecified, not intractable, without status migrainosus (principal); E11.9 Type 2 diabetes mellitus without complications; F32.9 Major depressive disorder, single episode, unspecified; G47.00 Insomnia, unspecified; M54.81 Occipital neuralgia; F17.210 Nicotine dependence, cigarettes, uncomplicated; Z79.899 Other long term (current) drug therapy; Z79.52 Long term (current) use of systemic steroids; Z88.0 Allergy status to penicillin; E78.5 Hyperlipidemia, unspecified; I11.0 Hypertensive heart disease with heart failure; I50.9 Heart failure, unspecified; F41.0 Panic disorder [episodic paroxysmal anxiety]; K58.9 Irritable bowel syndrome, unspecified; J44.9 Chronic obstructive pulmonary disease, unspecified; E66.9 Obesity, unspecified; Z68.31 Body mass index [BMI] 31.0-31.9, adult; M79.2 Neuralgia and neuritis, unspecified; I67.4 Hypertensive encephalopathy
CPT/HCPCS: 96361 ×2; 96375 ×2; 96376 ×2; 96374; 99285; 36415; 93005; 80053 ×2; 80074; 85652; 85025; 85027; 86140; 83036; G0378 ×3; S4990; J2270; J2405 ×2; J1885 ×3; C9113 ×3; 54150

== ENCOUNTER 2017-05-07 17:34 | Observation (INO) | payer OTHER ==
[2017-05-07] MEDS ORDERED: ONDANSETRON 4 MG/2 ML VIAL IVP STA (18:06)
[2017-05-07] MEDS ORDERED: HYDROmorphone 1 MG/ML 1 ML SYRINGE IVP STA (18:06)
[2017-05-07] MEDS ORDERED: cloNIDine HCL 0.1 MG TAB PO STA (18:12)
--- NOTE | 2017-05-07 18:15 | ED ---
General Adult HPI - General Chief complaint: Chest Pain Stated complaint: HTN Time Seen by Provider: 05/07/17 17:45 Source: patient, EMS, RN notes reviewed, old records reviewed Mode of arrival: EMS Limitations: no limitations - History of Present Illness Initial comments: Chief complaint history of present illness a 66-year-old female here with a complaint of headache and high blood pressure. Patient reports that since April 04 been having headaches associated with high blood pressure. She used to be on Tenoretic. At that time switch first over the Cozaar. She's been told to take Catapres 0.11 her blood pressure is elevated and she has a headache. She reports is normally helps. She has only taken Aleve without much success. Patient reports headache sometimes become worse and migrainous like occasionally has photophobia. Nausea but no vomiting. No stiff neck no injuries. No neuro deficits. - Related Data Home Medications Medication Instructions Recorded Confirmed Albuterol Sulfate [Ventolin HFA] 1 - 2 puff INHALATION RT-Q6H PRN 12/31/1305/07 Cholecalciferol [Vitamin D3] 1,000 unit PO DAILY 12/31/13 05/07/17 Loratadine [Claritin] 10 mg PO DAILY 04/05/17 05/07/17 Losartan [Cozaar] 25 mg PO BID 04/05/17 05/07/17 Vitamin B Complex 1 cap PO DAILY 04/05/17 05/07/17 Atorvastatin [Lipitor] 40 mg PO HS 05/07/17 05/07/17 Nicotine [Nicoderm Cq] 1 patch TRANSDERM DAILY 05/07/17 05/07/17 Omeprazole [PriLOSEC] 40 mg PO DAILY 05/07/17 05/07/17 Potassium Chloride [Klor-Con 20] 20 meq PO DAILY 05/07/17 05/07/17 cloNIDine HCL [Catapres] 0.1 mg PO BID 05/07/17 05/07/17 Allergies Allergy/AdvReac Type Severity Reaction Status Date / Time amoxicillin [Amoxicillin] Allergy Rash/Hives Verified 05/07/17 18:46 Review of Systems ROS Statement: Those systems with pertinent positive or pertinent negative responses have been documented in the HPI. Review of systems. Mild headache no photophobia chronic neck discomfort for mild arthritis. No chest pain or shortness of breath no abdominal pain no nausea no vomiting no diarrhea no neuro deficits. All systems are reviewed. Past medical problems significant for recurrent headaches over the past 6 weeks. Nausea no vomiting no stiff neck. Elevated blood pressure during that time as well. Patient has diet-controlled diabetes mellitus. Hyperlipidemia and hypertension. Patient's surgeries include 2 ligation only. Family history rate cancer colon cancer. Patient has ALLERGIES to penicillin. She quit smoking 9 days ago. Denies alcohol use. ROS Other: All systems not noted in ROS Statement are negative. Past Medical History Past Medical History: Heart Failure, Diabetes Mellitus, Hyperlipidemia, Hypertension History of Any Multi-Drug Resistant Organisms: None Reported Past Surgical History: Tubal Ligation Past Anesthesia/Blood Transfusion Reactions: No Reported Reaction Past Psychological History: Depression, Panic Disorder Smoking Status: Current every day smoker Past Alcohol Use History: None Reported Past Drug Use History: None Reported - Past Family History Mother Additional Family Medical History / Comment(s): suicide General Exam - General Exam Comments Initial Comments: General: The patient is awake and alert, patient has a headache and blood pressure en route was over 200 patient received IV fluids. On arrival to emergency room blood pressure was initially 217/98. It came down within a short period time to 188/90. Mild headache. The patient will receive IV pain medication and Catapres. Vital signs shows temperature 97.3 pulse 72 respiratory rate 16 pulse ox 96% room air blood pressure initially 217/98. Eye: Pupils are equal, round and reactive to light, extra-ocular movements are intact ; there is normal conjunctiva bilaterally. No signs of icterus. Ears, nose, mouth and throat: There are moist mucous membranes and no oral lesions. recently finished antibiotics for sinusitis described in the MRI performed 13 days ago. Neck: The neck is supple, mild neck discomfort, no meningismus., no carotid bruit. Cardiovascular: There is a regular rate and rhythm. No murmur, rub or gallop is appreciated. Respiratory: Lungs are clear to auscultation, respirations are non-labored, breath sounds are equal. No wheezes, stridor, rales, or rhonchi. Gastrointestinal: Soft, non-distended, non-tender abdomen without masses or organomegaly noted. There is no rebound or guarding present. No CVA tenderness. Bowel sounds are unremarkable. Back: There is no tenderness to palpation in the midline. There is no obvious deformity. No rashes noted. Musculoskeletal: Normal ROM, no tenderness, There is no pedal edema. There is no calf tenderness or swelling. Sensation intact. Pulses equal bilaterally 2+. Neurological: CN II-XII intact, There are no obvious motor or sensory deficits. Coordination appears grossly intact. Speech is normal. No focal or lateralizing findings Skin: Skin is warm and dry and no rashes or lesions are noted. Psychiatric: Cooperative, appropriate mood & affect, normal judgment. Limitations: no limitations Course Vital Signs 05/07/17 05/07/17 05/07/17 17:36 18:39 19:00 Temperature 97.3 F L Pulse Rate 72 106 H 88 Respiratory 16 16 16 Rate Blood Pressure 217/98 172/76 172/81 O2 Sat by Pulse 96 97 96 Oximetry EKG Findings - EKG Comments: EKG Findings:: EKG was done and reviewed at 1739 showing normal sinus rhythm no acute distress elevation no ectopy no ischemic changes. Rate 66 QRS S 86 WA interval is 120, QRS 86 QT 382 QTc 400. This EKG was compared to one done on April 23 of this year and they're similar. Dr. Mccain Medical Decision Making - Medical Decision Making Medical decision making; this is a 66-year-old female who is been having elevated blood pressure and headaches since March 25. She's had MRIs without finding the particular cause and recently finished antibiotic for possible sinusitis. She's been switched from Tenormin to Cozaar to Vasotec and continues to have headaches. Blood pressure was elevated over 200 systolic today. In emergency room this evening the patient was given fluids pain medication and IV Vasotec was positive blood pressure down to 170. This isn't been made for the patient be admitted for further evaluation for uncontrolled hypertension. - Lab Data Result diagrams: 05/07/17 18:00 05/07/17 18:00 Lab Results 05/07/17 05/07/17 Range/Units 18:00 18:00 WBC 9.9 (3.8-10.6) k/uL RBC 4.34 (3.80-5.40) m/uL Hgb 13.2 (11.4-16.0) gm/dL Hct 41.1 (34.0-46.0) % MCV 94.7 (80.0-100.0) fL MCH 30.5 (25.0-35.0) pg MCHC 32.2 (31.0-37.0) g/dL RDW 14.5 (11.5-15.5) % Plt Count 201 (150-450) k/uL Neutrophils % 74 % Lymphocytes % 16 % Monocytes % 6 % Eosinophils % 1 % Basophils % 1 % Neutrophils # 7.3 (1.3-7.7) k/uL Lymphocytes # 1.6 (1.0-4.8) k/uL Monocytes # 0.6 (0-1.0) k/uL Eosinophils # 0.1 (0-0.7) k/uL Basophils # 0.1 (0-0.2) k/uL Sodium 142 (137-145) mmol/L Potassium 4.4 (3.5-5.1) mmol/L Chloride 105 (98-107) mmol/L Carbon Dioxide 31 H (22-30) mmol/L Anion Gap 6 mmol/L BUN 16 (7-17) mg/dL Creatinine 0.70 (0.52-1.04) mg/dL Est GFR (MDRD) Af Amer >60 (>60 ml/min/1.73 sqM) Est GFR (MDRD) Non-Af >60 (>60 ml/min/1.73 sqM) Glucose 81 (74-99) mg/dL Calcium 9.6 (8.4-10.2) mg/dL Total Bilirubin 0.5 (0.2-1.3) mg/dL AST 26 (14-36) U/L ALT 41 (9-52) U/L Alkaline Phosphatase 76 (38-126) U/L Total Protein 6.5 (6.3-8.2) g/dL Albumin 3.6 (3.5-5.0) g/dL Disposition Clinical Impression: Hypertension, uncontrolled Disposition: ADMITTED IP TO THIS HOSP Condition: Fair Referrals: David Lindquist DO [Primary Care Provider] - 1-2 days
[2017-05-07 18:28] LABS: Basophils # (A) 0.1 k/uL (0-0.2); Basophils % (A) 1 %; Eosinophils # (A) 0.1 k/uL (0-0.7); Eosinophils % (A) 1 %; HCT 41.1 % (34.0-46.0); HGB 13.2 gm/dL (11.4-16.0); Lymphocytes # (A) 1.6 k/uL (1.0-4.8); Lymphocytes % (A) 16 %; MCH 30.5 pg (25.0-35.0); MCHC 32.2 g/dL (31.0-37.0); MCV 94.7 fL (80.0-100.0); Mean Platelet Volume 8.8; Monocytes # (A) 0.6 k/uL (0-1.0); Monocytes % (A) 6 %; Neutrophils # (A) 7.3 k/uL (1.3-7.7); Neutrophils % (A) 74 %; Platelet Count 201 k/uL (150-450); RBC 4.34 m/uL (3.80-5.40); RDW 14.5 % (11.5-15.5); WBC 9.9 k/uL (3.8-10.6)
[2017-05-07 18:33] LABS: ALT 41 U/L (9-52); AST 26 U/L (14-36); Albumin 3.6 g/dL (3.5-5.0); Alkaline Phosphatase 76 U/L (38-126); Anion Gap 6 mmol/L; Blood Urea Nitrogen 16 mg/dL (7-17); Calcium 9.6 mg/dL (8.4-10.2); Carbon Dioxide 31 mmol/L (22-30); Chloride 105 mmol/L (98-107); Glucose 81 mg/dL (74-99); Potassium 4.4 mmol/L (3.5-5.1); Sodium 142 mmol/L (137-145); Total Bilirubin 0.5 mg/dL (0.2-1.3); Total Protein 6.5 g/dL (6.3-8.2)
[2017-05-07] MEDS ORDERED: NALOXONE 0.4 MG/ML 1 ML VIAL IV PRN (19:33)
[2017-05-07] MEDS ORDERED: ONDANSETRON 4 MG/2 ML VIAL IVP PRN (19:33)
[2017-05-07] MEDS: LOSARTAN 25 MG TAB PO SCH (20:47)
[2017-05-07] MEDS: ATORVASTATIN 40 MG TAB PO SCH (20:47)
[2017-05-08] MEDS: SODIUM CHLORIDE 0.9% 1,000 ML IV SCH ×2 (00:01→18:16)
[2017-05-08] MEDS: ENALAPRILAT 1.25 MG/ML 1 ML VIAL IVP PRN ×2 (07:25→16:12)
[2017-05-08] MEDS: POTASSIUM CHLORIDE ER 20 MEQ TAB.ER PO SCH (07:28)
[2017-05-08] MEDS: CHOLECALCIFEROL 1,000 UNIT TAB PO SCH (07:28)
[2017-05-08] MEDS: cloNIDine HCL 0.1 MG TAB PO SCH ×2 (07:28→21:36)
[2017-05-08] MEDS: NICOTINE 21MG/24HR PATCH TRANSDERM SCH (07:28)
[2017-05-08] MEDS: LOSARTAN 25 MG TAB PO SCH ×2 (07:28→21:36)
[2017-05-08] MEDS: ACETAMINOPHEN TAB 325 MG TAB PO PRN ×2 (07:33→16:21)
[2017-05-08] MEDS: ALBUTEROL NEBULIZED 2.5 MG/3 ML INHALATION PRN ×2 (07:44→20:13)
[2017-05-08 13:55] VITALS: BMI 29.2
--- NOTE | 2017-05-08 14:38 | P.HPIM ---
History of Present Illness H&P Date: 05/08/17 Chief Complaint: elevated blood pressure and headache patient is a 66-year-old female with a known history of diet-controlled diabetes mellitus, hyperlipidemia, hypertension with a complaint of headache and high blood pressure. Patient reports that since April 04 been having headaches associated with high blood pressure. She used to be on Tenoretic. At that time switch first over the Cozaar. She's been told to take Catapres 0.1 BID her blood pressure is elevated and she has a headache. She reports is normally helps. She has only taken Aleve without much success. Patient reports headache sometimes become worse and migrainous like occasionally has photophobia. Nausea but no vomiting. No stiff neck no injuries. No neuro deficits. patient was seen by neurology during last admission. Patient followed with a neurologist in the clinic and occipital O block was not recommended at the time. Patient says that she gets high blood pressure and followed by headache after that. We will also check for secondary hypertension. Review of Systems Constitutional: Patient denies any fever or chills . No generalized weakness or weight loss. Abdomen: Patient denied nausea vomiting and diarrhea and abdominal pain. Cardiovascular: Patient denies any chest pain or short of breath no palpitations. Respiratory: patient denied any cough is from production. No shortness of breath Neurologic: Patient denied any numbness or tingling . Patient has headache. Musculoskeletal: Patient denies any complaints of joint swelling or deformity. Skin: Negative Psychiatric: Negative Endocrine: No heat or cold intolerance. No recent weight gain. Genitourinary: No dysuria or hematuria. All other 14 point ROS negative except the above Past Medical History Past Medical History: Diabetes Mellitus, Hyperlipidemia, Hypertension Additional Past Medical History / Comment(s): pt states she is a diet controlled diabetic. History of Any Multi-Drug Resistant Organisms: None Reported Past Surgical History: Tubal Ligation Past Anesthesia/Blood Transfusion Reactions: No Reported Reaction Past Psychological History: Anxiety, Depression, Panic Disorder Smoking Status: Former smoker Past Alcohol Use History: None Reported Past Drug Use History: None Reported - Past Family History Mother Additional Family Medical History / Comment(s): suicide Medications and Allergies Home Medications Medication Instructions Recorded Confirmed Type Albuterol Sulfate [Ventolin HFA] 1 - 2 puff INHALATION RT-Q6H PRN 12/31/1305/07 History Cholecalciferol [Vitamin D3] 1,000 unit PO DAILY 12/31/13 05/07/17 History Loratadine [Claritin] 10 mg PO DAILY 04/05/17 05/07/17 History Losartan [Cozaar] 25 mg PO BID 04/05/17 05/07/17 History Vitamin B Complex 1 cap PO DAILY 04/05/17 05/07/17 History Atorvastatin [Lipitor] 40 mg PO HS 05/07/17 05/07/17 History Nicotine [Nicoderm Cq] 1 patch TRANSDERM DAILY 05/07/17 05/07/17 History Omeprazole [PriLOSEC] 40 mg PO DAILY 05/07/17 05/07/17 History Potassium Chloride [Klor-Con 20] 20 meq PO DAILY 05/07/17 05/07/17 History cloNIDine HCL [Catapres] 0.1 mg PO BID 05/07/17 05/07/17 History Allergies Allergy/AdvReac Type Severity Reaction Status Date / Time amoxicillin [Amoxicillin] Allergy Rash/Hives Verified 05/07/17 18:46 Physical Exam Vitals: Vital Signs Temp Pulse Pulse Resp BP BP Pulse Ox 05/08/17 12:35 98.1 F 67 18 140/53 94 L 05/08/17 10:19 97.6 F 69 16 158/70 95 05/08/17 08:59 71 188/88 05/08/17 08:00 70 20 05/08/17 07:53 72 05/08/17 07:46 72 05/08/17 07:00 97.4 F L 70 20 197/91 97 05/07/17 22:45 97.6 F 95 16 145/65 95 05/07/17 19:59 97.6 F 84 17 162/74 99 05/07/17 19:00 88 16 172/81 96 05/07/17 18:39 106 H 16 172/76 97 05/07/17 17:36 97.3 F L 72 16 217/98 96 Intake and Output 05/07/17 05/08/17 05/08/17 22:59 06:59 14:59 Intake Total 590 Balance 590 Intake: Oral 590 Other: Weight 73.936 kg 72.5 kg 72.5 kg Patient Weight 05/09/17 06:59 Weight 72.5 kg PHYSICAL EXAMINATION: Patient is lying in the bed comfortably, mild distress due to headache, awake alert and oriented.. HEENT: Normocephalic. Neck is supple. Pupils reactive. Nostrils clear. Oral cavity is moist. Ears reveal no drainage. Neck reveals no JVD, carotid bruits, or thyromegaly. CHEST EXAMINATION: Trachea is central. Symmetrical expansion. Lung valdivia clear to auscultation and percussion. CARDIAC: Normal S1, S2 with no gallops. No murmurs ABDOMEN: Soft. Bowel sounds normal. No organomegaly. No abdominal bruits. Extremities: reveal no edema. No clubbing or cyanosis Neurologically awake, alert, oriented x3 with well-coordinated movements. No focal deficits noted Skin: No rash or skin lesions. Psychiatric: Cooperative. Nonsuicidal Musculoskeletal: No joint swelling or deformity. Normal range of motion. Results CBC & Chem 7: 05/07/17 18:00 05/07/17 18:00 Labs: Abnormal Lab Results - Last 24 Hours (Table) 05/07/17 Range/Units 18:00 Carbon Dioxide 31 H (22-30) mmol/L Thrombosis Risk Factor Assmnt - DVT/VTE Prophylaxis DVT/VTE Prophylaxis: Pharmacologic Prophylaxis ordered - Choose All That Apply Any of the Below Risk Factors Present?: Yes Each Factor Represents 1 point: Abnormal pulmonary function (COPD), Obesity ( BMI >25), Swollen legs (current) Other Risk Factors: Yes Each Risk Factor Represents 2 Points: Age 61-74 years Thrombosis Risk Factor Assessment Total Risk Factor Score: 5 Thrombosis Risk Factor Assessment Level: High Risk Assessment and Plan Assessment: #1. Uncontrolled hypertension likely due to migraine headache #2 migraine headache #3 hypertension #4 diabetes type 2 diet-controlled #5 hyperlipidemia #6 anxiety depression and panic disorder DVT prophylaxis Plan: patient will be continued on telemetry. Patient is currently on Cozaar and clonidineat this time. Blood pressure is controlled now. Patient says that she gets high blood pressure before started having headache. ordered TSH, cortisol, plasma metanephrines and renin and Aldosterone levels.patient was advised to follow with PCP as outpatient for results. Headache is much improved now. Further conditions based on the clinical course. Time with Patient: Greater than 30
--- NOTE | 2017-05-08 14:40 | P.DS ---
Providers Date of admission: 05/07/17 19:33 Expected date of discharge: 05/08/17 Attending physician: Sonido Tilley Primary care physician: David Lindquist [facility] Course: discharge diagnosis #1. Uncontrolled hypertension likely due to migraine headache #2 migraine headache. Suspected occipital neuralgia during previous neurologic evaluation. #3 hypertension #4 diabetes type 2 diet-controlled #5 hyperlipidemia #6 anxiety depression and panic disorder\ #7 smoking cessation counseled greater than 3 minutes DVT prophylaxis Hospital course patient is a 66-year-old female with a known history of diet-controlled diabetes mellitus, hyperlipidemia, hypertension with a complaint of headache and high blood pressure. Patient reports that since April 04 been having headaches associated with high blood pressure. She used to be on Tenoretic. At that time switch first over the Cozaar. She's been told to take Catapres 0.1 BID her blood pressure is elevated and she has a headache. She reports is normally helps. She has only taken Aleve without much success. Patient reports headache sometimes become worse and migrainous like occasionally has photophobia. Nausea but no vomiting. No stiff neck no injuries. No neuro deficits. patient was seen by neurology during last admission. Patient followed with a neurologist in the clinic and occipital O block was not recommended at the time. Patient says that she gets high blood pressure and followed by headache after that. We will also check for secondary hypertension. patient was continued on telemetry. Patient is currently on Cozaar and clonidineat this time. Blood pressure is controlled now. Patient says that she gets high blood pressure before started having headache. ordered TSH, cortisol, plasma metanephrines and renin and Aldosterone levels.patient was advised to follow with PCP as outpatient for results. Headache is much improved now. potassium supplementation has been discontinued and patient is off her diuretics. discharge physical examination was done counseled for smoking cessation Patient Condition at Discharge: Fair Plan - Discharge Summary New Discharge Prescriptions: Continue Cholecalciferol [Vitamin D3] 1,000 unit PO DAILY Albuterol Sulfate [Ventolin HFA] 1 - 2 puff INHALATION RT-Q6H PRN PRN Reason: Shortness Of Breath Vitamin B Complex 1 cap PO DAILY Loratadine [Claritin] 10 mg PO DAILY Losartan [Cozaar] 25 mg PO BID cloNIDine HCL [Catapres] 0.1 mg PO BID Nicotine [Nicoderm Cq] 1 patch TRANSDERM DAILY Atorvastatin [Lipitor] 40 mg PO HS Omeprazole [PriLOSEC] 40 mg PO DAILY Discontinued Potassium Chloride [Klor-Con 20] 20 meq PO DAILY Discharge Medication List Albuterol Sulfate [Ventolin HFA] 1 - 2 puff INHALATION RT-Q6H PRN 12/31/13 [ History] Cholecalciferol [Vitamin D3] 1,000 unit PO DAILY 12/31/13 [History] Loratadine [Claritin] 10 mg PO DAILY 04/05/17 [History] Losartan [Cozaar] 25 mg PO BID 04/05/17 [History] Vitamin B Complex 1 cap PO DAILY 04/05/17 [History] Atorvastatin [Lipitor] 40 mg PO HS 05/07/17 [History] Nicotine [Nicoderm Cq] 1 patch TRANSDERM DAILY 05/07/17 [History] Omeprazole [PriLOSEC] 40 mg PO DAILY 05/07/17 [History] cloNIDine HCL [Catapres] 0.1 mg PO BID 05/07/17 [History] Follow up Appointment(s)/Referral(s): David Lindquist DO [Primary Care Provider] - 1-2 days Discharge Disposition: HOME SELF-CARE
[2017-05-08] MEDS: HYDROCHLOROTHIAZIDE 25 MG TAB PO SCH (18:40)
[2017-05-08] MEDS: ATORVASTATIN 40 MG TAB PO SCH (21:36)
--- NOTE | 2017-05-08 22:20 | ECHOF ---
Referral Reason:uncontrolled hypertension MEASUREMENTS -------- HEIGHT: 157.5 cm WEIGHT: 72.1 kg BP: IVSd: 1.4 cm (0.6 - 1.1) LVIDd: 3.4 cm (3.9 - 5.3) LVPWd: 1.2 cm (0.6 - 1.1) IVSs: 2.0 cm LVIDs: 2.0 cm LVPWs: 1.6 cm Ao Diam: 3.1 cm (2.0 - 3.7) AV Cusp: 1.8 cm (1.5 - 2.6) LA Diam: 3.4 cm (2.7 - 3.8) MV EXCURSION: 16.312 mm (> 18.000) MV EF SLOPE: 78 mm/s (70 - 150) EPSS: 0.3 cm MV E Kian: 0.79 m/s MV DecT: 296 ms MV A Kian: 1.05 m/s MV E/A Ratio: 0.76 RAP: 5.00 mmHg RVSP: 40.83 mmHg FINDINGS -------- Sinus rhythm. This was a technically good study. The left ventricular size is normal. There is mild concentric left ventricular hypertrophy. Overa ll left ventricular systolic function is normal with, an EF between 55 - 60 %. The right ventricle is normal in size and function. The left atrium is normal in size. The right atrium is normal in size. The aortic valve is trileaflet, and appears structurally normal. No aortic stenosis or regurgitation. The mitral valve leaflets are mildly thickened. Mild mitral regurgitation is present. Moderate tricuspid regurgitation present. There is mild pulmonary hypertension. The right ventric ular systolic pressure, as measured by Doppler, is 40.83mmHg. Pulmonic valve appears structurally normal. The aortic root size is normal. Normal inferior vena cava with normal inspiratory collapse consistent with estimated right atrial pre ssure of 5 mmHg. The pericardium is normal. CONCLUSIONS -------- 1. Sinus rhythm. 2. This was a technically good study. 3. The left ventricular size is normal. 4. There is mild concentric left ventricular hypertrophy. 5. Overall left ventricular systolic function is normal with, an EF between 55 - 60 %. 6. The right ventricle is normal in size and function. 7. The left atrium is normal in size. 8. The right atrium is normal in size. 9. The aortic valve is trileaflet, and appears structurally normal. No aortic stenosis or regurgitati on. 10. The mitral valve leaflets are mildly thickened. 11. Mild mitral regurgitation is present. 12. Moderate tricuspid regurgitation present. 13. There is mild pulmonary hypertension. 14. The right ventricular systolic pressure, as measured by Doppler, is 40.83mmHg. 15. Pulmonic valve appears structurally normal. 16. The aortic root size is normal. 17. Normal inferior vena cava with normal inspiratory collapse consistent with estimated right atrial pressure of 5 mmHg. 18. The pericardium is normal. DIRECTOR FUNDRAISING: Beryl Lancaster RDCS
[2017-05-09] MEDS: ALBUTEROL NEBULIZED 2.5 MG/3 ML INHALATION PRN (08:11)
[2017-05-09] MEDS: NICOTINE 21MG/24HR PATCH TRANSDERM SCH (08:57)
[2017-05-09] MEDS: LOSARTAN 25 MG TAB PO SCH (08:57)
[2017-05-09] MEDS: CHOLECALCIFEROL 1,000 UNIT TAB PO SCH (08:58)
[2017-05-09] MEDS: POTASSIUM CHLORIDE ER 20 MEQ TAB.ER PO SCH (08:58)
[2017-05-09] MEDS: cloNIDine HCL 0.1 MG TAB PO SCH (08:58)
[2017-05-09] MEDS: HYDROCHLOROTHIAZIDE 25 MG TAB PO SCH (08:58)
[2017-05-09 12:23] VITALS: PULSE 73; TEMP 98.1
[2017-05-09 13:52] VITALS: BP 123/49; RESP 14
--- NOTE | 2017-05-09 23:24 | P.DS ---
Providers Date of admission: 05/07/17 19:33 Expected date of discharge: 05/09/17 Attending physician: Sonido Tilley Primary care physician: David Lindquist [facility] Course: discharge diagnosis #1. Uncontrolled hypertension likely due to migraine headache #2 migraine headache. Suspected occipital neuralgia during previous neurologic evaluation. #3 hypertension #4 diabetes type 2 diet-controlled #5 hyperlipidemia #6 anxiety depression and panic disorder\ #7 smoking cessation counseled greater than 3 minutes DVT prophylaxis Hospital course patient is a 66-year-old female with a known history of diet-controlled diabetes mellitus, hyperlipidemia, hypertension with a complaint of headache and high blood pressure. Patient reports that since April 04 been having headaches associated with high blood pressure. She used to be on Tenoretic. At that time switch first over the Cozaar. She's been told to take Catapres 0.1 BID her blood pressure is elevated and she has a headache. She reports is normally helps. She has only taken Aleve without much success. Patient reports headache sometimes become worse and migrainous like occasionally has photophobia. Nausea but no vomiting. No stiff neck no injuries. No neuro deficits. patient was seen by neurology during last admission. Patient followed with a neurologist in the clinic and occipital O block was not recommended at the time. Patient says that she gets high blood pressure and followed by headache after that. We will also check for secondary hypertension. patient was continued on telemetry. Patient is currently on Cozaar and clonidineat this time. Blood pressure is controlled now. Patient says that she gets high blood pressure before started having headache. ordered TSH, cortisol, plasma metanephrines and renin and Aldosterone levels.patient was advised to follow with PCP as outpatient for results. Headache is much improved now. Patient was started on hydrochlorothiazide for better blood pressure control. discharge physical examination was done counseled for smoking cessation Patient Condition at Discharge: Fair Plan - Discharge Summary New Discharge Prescriptions: New Hydrochlorothiazide [Hydrodiuril] 12.5 mg PO DAILY #30 tab Potassium Chloride ER [K-Dur 20] 20 meq PO DAILY #30 [email or web address].[email or web address] Continue Cholecalciferol [Vitamin D3] 1,000 unit PO DAILY Albuterol Sulfate [Ventolin HFA] 1 - 2 puff INHALATION RT-Q6H PRN PRN Reason: Shortness Of Breath Vitamin B Complex 1 cap PO DAILY Loratadine [Claritin] 10 mg PO DAILY Losartan [Cozaar] 25 mg PO BID cloNIDine HCL [Catapres] 0.1 mg PO BID Nicotine [Nicoderm Cq] 1 patch TRANSDERM DAILY Atorvastatin [Lipitor] 40 mg PO HS Omeprazole [PriLOSEC] 40 mg PO DAILY Discontinued Potassium Chloride [Klor-Con 20] 20 meq PO DAILY Discharge Medication List Albuterol Sulfate [Ventolin HFA] 1 - 2 puff INHALATION RT-Q6H PRN 12/31/13 [ History] Cholecalciferol [Vitamin D3] 1,000 unit PO DAILY 12/31/13 [History] Loratadine [Claritin] 10 mg PO DAILY 04/05/17 [History] Losartan [Cozaar] 25 mg PO BID 04/05/17 [History] Vitamin B Complex 1 cap PO DAILY 04/05/17 [History] Atorvastatin [Lipitor] 40 mg PO HS 05/07/17 [History] Nicotine [Nicoderm Cq] 1 patch TRANSDERM DAILY 05/07/17 [History] Omeprazole [PriLOSEC] 40 mg PO DAILY 05/07/17 [History] cloNIDine HCL [Catapres] 0.1 mg PO BID 05/07/17 [History] Hydrochlorothiazide [Hydrodiuril] 12.5 mg PO DAILY #30 tab 05/09/17 [Rx] Potassium Chloride ER [K-Dur 20] 20 meq PO DAILY #30 [email or web address] 05/09/17 [Rx] Follow up Appointment(s)/Referral(s): David Lindquist DO [Primary Care Provider] - 1-2 days Patient Instructions/Handouts: Hypertensive Crisis (GEN) Discharge Disposition: HOME SELF-CARE
[2017-05-16 19:36] LABS: Metanephrine, Free <25 pg/mL (< OR = 57); Normetanephrine, Free 73 pg/mL (< OR = 148); Total, Free (MN + NMN) 73 pg/mL (< OR = 205)
== END 2017-05-09 14:15 | disposition home or self-care (01) ==
LOC: EC 17:34 → 5MS5E 19:33 → 3OBS 05-08 10:10
PROVIDERS: ADMIT Internal Medicine; ATTEND Internal Medicine
DX: I11.0 Hypertensive heart disease with heart failure (principal); I50.9 Heart failure, unspecified; G43.909 Migraine, unspecified, not intractable, without status migrainosus; E78.5 Hyperlipidemia, unspecified; E11.9 Type 2 diabetes mellitus without complications; J44.9 Chronic obstructive pulmonary disease, unspecified; E66.9 Obesity, unspecified; Z68.25 Body mass index [BMI] 25.0-25.9, adult; F41.0 Panic disorder [episodic paroxysmal anxiety]; F32.9 Major depressive disorder, single episode, unspecified; F17.200 Nicotine dependence, unspecified, uncomplicated; F41.9 Anxiety disorder, unspecified; Z79.899 Other long term (current) drug therapy; Z88.0 Allergy status to penicillin
CPT/HCPCS: 99285 ×2; 96374 ×2; 96375 ×3; 96376; 36415; 94640 ×3; 93005; 93306; 83835; 80053; 84443; 82533; 82088; 84244; 85025; G0378 ×4; S4990 ×2; J2405 ×2; J1170

== ENCOUNTER 2017-05-30 00:12 | Emergency (ER) | payer OTHER ==
[2017-05-30] MEDS ORDERED: diphenhydrAMINE 50 MG/ML 1 ML VIAL IVP STA (00:45)
[2017-05-30] MEDS ORDERED: SODIUM CHLORIDE 0.9% 1,000 ML IV STA (00:45)
[2017-05-30] MEDS ORDERED: METOCLOPRAMIDE 5 MG/ML 2 ML VIAL IVP STA (00:45)
--- NOTE | 2017-05-30 01:16 | ED ---
General Adult HPI - General Chief complaint: Headache Stated complaint: headache Time Seen by Provider: 05/30/17 00:19 Source: patient, EMS, RN notes reviewed, old records reviewed Mode of arrival: EMS Limitations: no limitations - History of Present Illness Initial comments: Patient's a 66-year-old female who presents emergency room today with a chief complaint of a headache. Patient does admit that she's had multiple visits to the ER for the same complaint. She states that she had a headache today. States blood pressure was 200s/100s. States that she did take an Aleve. She states she called EMS this feels like she cannot deal with this headache. States it was a 10/10. She currently rates the headache at 3/10 at this time. Patient states had recent blood pressure change of medication. She also took Catapres which was what she was on previously. Patient denies any recent fever, chills, shortness of breath, chest pain, back pain, abdominal pain, nausea or vomiting, numbness or tingling, dysuria or hematuria, constipation or diarrhea, visual changes, or any other complaints. - Related Data Home Medications Medication Instructions Recorded Confirmed Albuterol Sulfate [Ventolin HFA] 1 - 2 puff INHALATION RT-Q6H PRN 12/31/1305/07 Cholecalciferol [Vitamin D3] 1,000 unit PO DAILY 12/31/13 05/07/17 Loratadine [Claritin] 10 mg PO DAILY 04/05/17 05/07/17 Losartan [Cozaar] 25 mg PO BID 04/05/17 05/07/17 Vitamin B Complex 1 cap PO DAILY 04/05/17 05/07/17 Atorvastatin [Lipitor] 40 mg PO HS 05/07/17 05/07/17 Nicotine [Nicoderm Cq] 1 patch TRANSDERM DAILY 05/07/17 05/07/17 Omeprazole [PriLOSEC] 40 mg PO DAILY 05/07/17 05/07/17 cloNIDine HCL [Catapres] 0.1 mg PO BID 05/07/17 05/07/17 Previous Rx's Medication Instructions Recorded Hydrochlorothiazide [Hydrodiuril] 12.5 mg PO DAILY #30 tab 05/09/17 Potassium Chloride ER [K-Dur 20] 20 meq PO DAILY #30 tab.er.prt 05/09/17 Sulfamethox-Tmp 800-160Mg [Bactrim 1 tab PO Q12HR #20 tab 05/30/17 DS 800-160 mg] Allergies Allergy/AdvReac Type Severity Reaction Status Date / Time amoxicillin [Amoxicillin] Allergy Rash/Hives Verified 05/07/17 18:46 Review of Systems ROS Statement: Those systems with pertinent positive or pertinent negative responses have been documented in the HPI. ROS Other: All systems not noted in ROS Statement are negative. Past Medical History Past Medical History: Diabetes Mellitus, Hyperlipidemia, Hypertension Additional Past Medical History / Comment(s): pt states she is a diet controlled diabetic. History of Any Multi-Drug Resistant Organisms: None Reported Past Surgical History: Tubal Ligation Past Anesthesia/Blood Transfusion Reactions: No Reported Reaction Past Psychological History: Anxiety, Depression, Panic Disorder Smoking Status: Former smoker Past Alcohol Use History: None Reported Past Drug Use History: None Reported - Past Family History Mother Additional Family Medical History / Comment(s): suicide General Exam - General Exam Comments Initial Comments: General: The patient is awake and alert, in no distress, and does not appear acutely ill. Eye: Pupils are equal, round and reactive to light, extra-ocular movements are intact. No nystagmus. There is normal conjunctiva bilaterally. No signs of icterus. Ears, nose, mouth and throat: There are moist mucous membranes and no oral lesions. Neck: The neck is supple, there is no tenderness or JVD. Cardiovascular: There is a regular rate and rhythm. No murmur, rub or gallop is appreciated. Respiratory: Lungs are clear to auscultation, respirations are non-labored, breath sounds are equal. No wheezes, stridor, rales, or rhonchi. Musculoskeletal: Normal ROM, no tenderness. Strength 5/5. Sensation intact. Pulses equal bilaterally 2+. Neurological: A&O x 3. CN II-XII intact, There are no obvious motor or sensory deficits. Coordination appears grossly intact. Speech is normal. Skin: Skin is warm and dry and no rashes or lesions are noted. Psychiatric: Cooperative, appropriate mood & affect, normal judgment. Limitations: no limitations Course Vital Signs 05/30/17 00:15 Temperature 98.0 F Pulse Rate 90 Respiratory 17 Rate Blood Pressure 168/76 O2 Sat by Pulse 91 L Oximetry Medical Decision Making - Medical Decision Making Patient reexamined at this time shows no signs of distress. Patient states feeling much better. Blood pressure improved at this time. Patient previous history was reviewed showing history of migraines possible causing these headaches. She was given Reglan and Benadryl along with IV fluids and is feeling better. Will be discharged home to follow-up the family doctor tomorrow. Patient also admits on reexam that she's had a small abscess to the left axilla. There is no deep tissue involvement at this time. No abscess that drained. Will be started on antibiotics. Advised close follow-up and returning if symptoms increase worsen. - Lab Data Result diagrams: 05/30/17 01:00 05/30/17 01:00 Lab Results 05/30/17 05/30/17 Range/Units 01:00 01:00 WBC 12.1 H (3.8-10.6) k/uL RBC 4.25 (3.80-5.40) m/uL Hgb 12.6 (11.4-16.0) gm/dL Hct 39.8 (34.0-46.0) % MCV 93.5 (80.0-100.0) fL MCH 29.6 (25.0-35.0) pg MCHC 31.6 (31.0-37.0) g/dL RDW 14.8 (11.5-15.5) % Plt Count 212 (150-450) k/uL Neutrophils % 82 % Lymphocytes % 11 % Monocytes % 5 % Eosinophils % 1 % Basophils % 0 % Neutrophils # 9.9 H (1.3-7.7) k/uL Lymphocytes # 1.3 (1.0-4.8) k/uL Monocytes # 0.6 (0-1.0) k/uL Eosinophils # 0.1 (0-0.7) k/uL Basophils # 0.0 (0-0.2) k/uL Sodium 145 (137-145) mmol/L Potassium 3.6 (3.5-5.1) mmol/L Chloride 104 (98-107) mmol/L Carbon Dioxide 30 (22-30) mmol/L Anion Gap 11 mmol/L BUN 15 (7-17) mg/dL Creatinine 0.70 (0.52-1.04) mg/dL Est GFR (MDRD) Af Amer >60 (>60 ml/min/1.73 sqM) Est GFR (MDRD) Non-Af >60 (>60 ml/min/1.73 sqM) Glucose 127 H (74-99) mg/dL Calcium 9.8 (8.4-10.2) mg/dL Total Bilirubin 0.4 (0.2-1.3) mg/dL AST 21 (14-36) U/L ALT 35 (9-52) U/L Alkaline Phosphatase 91 (38-126) U/L Total Protein 6.7 (6.3-8.2) g/dL Albumin 3.7 (3.5-5.0) g/dL Disposition Clinical Impression: Hypertension, Headache, Abscess of left axilla Disposition: HOME SELF-CARE Condition: Good Instructions: Abscess (ED) Additional Instructions: Please use medication as discussed. Please follow-up with family doctor in the next 2 days. Please return to emergency room if the symptoms increase or worsen or for any other concerns. Prescriptions: Sulfamethox-Tmp 800-160Mg [Bactrim DS 800-160 mg] 1 tab PO Q12HR #20 tab Referrals: David Lindquist DO [Primary Care Provider] - 1-2 days Time of Disposition: 01:51
[2017-05-30 01:20] LABS: ALT 35 U/L (9-52); AST 21 U/L (14-36); Albumin 3.7 g/dL (3.5-5.0); Alkaline Phosphatase 91 U/L (38-126); Anion Gap 11 mmol/L; Blood Urea Nitrogen 15 mg/dL (7-17); Calcium 9.8 mg/dL (8.4-10.2); Carbon Dioxide 30 mmol/L (22-30); Chloride 104 mmol/L (98-107); Glucose 127 mg/dL (74-99); Potassium 3.6 mmol/L (3.5-5.1); Sodium 145 mmol/L (137-145); Total Bilirubin 0.4 mg/dL (0.2-1.3); Total Protein 6.7 g/dL (6.3-8.2)
[2017-05-30 01:29] LABS: Basophils % (A) 0 %; Eosinophils # (A) 0.1 k/uL (0-0.7); Eosinophils % (A) 1 %; HCT 39.8 % (34.0-46.0); HGB 12.6 gm/dL (11.4-16.0); Lymphocytes # (A) 1.3 k/uL (1.0-4.8); Lymphocytes % (A) 11 %; MCH 29.6 pg (25.0-35.0); MCHC 31.6 g/dL (31.0-37.0); MCV 93.5 fL (80.0-100.0); Mean Platelet Volume 8.8; Monocytes # (A) 0.6 k/uL (0-1.0); Monocytes % (A) 5 %; Neutrophils # (A) 9.9 k/uL (1.3-7.7); Neutrophils % (A) 82 %; Platelet Count 212 k/uL (150-450); RBC 4.25 m/uL (3.80-5.40); RDW 14.8 % (11.5-15.5); WBC 12.1 k/uL (3.8-10.6)
[2017-05-30 02:03] VITALS: BP 148/70; PULSE 86; RESP 18; TEMP 97.7
== END 2017-05-30 01:58 | disposition home or self-care (01) ==
LOC: EC 00:12
DX: I10 Essential (primary) hypertension (principal); L02.412 Cutaneous abscess of left axilla; E78.5 Hyperlipidemia, unspecified; Z87.891 Personal history of nicotine dependence; Z88.0 Allergy status to penicillin; Z79.899 Other long term (current) drug therapy
CPT/HCPCS: 99284; 96374; 96375; 36415; 80053; 85025; J1200; J2765

== ENCOUNTER 2017-06-12 11:24 | Emergency (ER) | payer OTHER ==
[2017-06-12] MEDS ORDERED: cloNIDine HCL 0.1 MG TAB PO STA (11:43)
--- NOTE | 2017-06-12 12:06 | ED ---
General Adult HPI - General Chief complaint: Recheck/Abnormal Lab/Rx Stated complaint: Hypertension Time Seen by Provider: 06/12/17 11:34 Source: patient, EMS, RN notes reviewed Mode of arrival: EMS Limitations: no limitations - History of Present Illness Initial comments: 66-year-old female presents to the emergency department with a chief complaint of hypertension. Patient states that they have been altering her medication with her doctor for her blood pressure. She states that when she takes half dose of Catapres because she feels as if her blood pressure drops to quickly when she takes a full dose. She's been on multiple different meds over the last few months and she states that nothing seems to work since she stopped taking them and follow-up with her doctor. She went to her doctor today and they found her blood pressure be-they brought her here. She states she has a mild headache but it is not no complaints shortness of breath with this. She denies any falls traumas or injuries. Patient states doctor sent her over here due to the elevated blood pressure. She states only took half of her Catapres this morning. She denies any other symptoms at this time. Patient denies any recent fever, chills, shortness of breath, chest pain, back pain, abdominal pain , nausea vomiting, numbness or tingling, dysuria or hematuria, constipation or diarrhea, visual changes, or any other current symptoms. - Related Data Home Medications Medication Instructions Recorded Confirmed Albuterol Sulfate [Ventolin HFA] 1 - 2 puff INHALATION RT-Q6H PRN 12/31/1306/12 Cholecalciferol [Vitamin D3] 1,000 unit PO DAILY 12/31/13 06/12/17 Loratadine [Claritin] 10 mg PO DAILY 04/05/17 06/12/17 Vitamin B Complex 1 cap PO DAILY 04/05/17 06/12/17 Atorvastatin [Lipitor] 40 mg PO HS 05/07/17 06/12/17 cloNIDine HCL [Catapres] 0.1 mg PO BID 05/07/17 06/12/17 Previous Rx's Medication Instructions Recorded Hydrochlorothiazide [Hydrodiuril] 12.5 mg PO DAILY #30 tab 05/09/17 Allergies Allergy/AdvReac Type Severity Reaction Status Date / Time amoxicillin [Amoxicillin] Allergy Rash/Hives Verified 06/12/17 12:02 Review of Systems ROS Statement: Those systems with pertinent positive or pertinent negative responses have been documented in the HPI. ROS Other: All systems not noted in ROS Statement are negative. Past Medical History Past Medical History: Diabetes Mellitus, Hyperlipidemia, Hypertension Additional Past Medical History / Comment(s): pt states she is a diet controlled diabetic. History of Any Multi-Drug Resistant Organisms: None Reported Past Surgical History: Tubal Ligation Past Anesthesia/Blood Transfusion Reactions: No Reported Reaction Past Psychological History: Anxiety, Depression, Panic Disorder Smoking Status: Former smoker Past Alcohol Use History: None Reported Past Drug Use History: None Reported - Past Family History Mother Additional Family Medical History / Comment(s): suicide General Exam Limitations: no limitations General appearance: alert, in no apparent distress Head exam: Present: atraumatic, normocephalic, normal inspection Eye exam: Present: normal appearance, PERRL, EOMI. Absent: scleral icterus, conjunctival injection, periorbital swelling ENT exam: Present: normal exam, mucous membranes moist Neck exam: Present: normal inspection. Absent: tenderness, meningismus, lymphadenopathy Respiratory exam: Present: normal lung sounds bilaterally. Absent: respiratory distress, wheezes, rales, rhonchi, stridor Cardiovascular Exam: Present: regular rate, normal rhythm, normal heart sounds. Absent: systolic murmur, diastolic murmur, rubs, gallop, clicks Back exam: Present: normal inspection Neurological exam: Present: alert, oriented X3, CN II-XII intact Psychiatric exam: Present: normal affect, normal mood Skin exam: Present: warm, dry, intact, normal color. Absent: rash Course Vital Signs 06/12/17 06/12/17 06/12/17 11:25 12:26 12:46 Temperature 97.7 F 97.3 F L Pulse Rate 74 78 86 Respiratory 18 18 17 Rate Blood Pressure 206/88 201/114 143/73 O2 Sat by Pulse 93 L 93 L 97 Oximetry EKG Findings - EKG Comments: EKG Findings:: normal sinus rhythm with short OH 63 bpm, normal axis, no atopy, no S-T depressions or elevations, Medical Decision Making - Medical Decision Making 66-year-old female presents emergency department with a chief complaint of hypertension. This time lab work is been reviewed. At this time patient's headache has resolved. This and blood pressure has improved with the second half of her blood pressure medication. We discussed continued follow-up with her doctor we discussed return parameters all questions. Patient stated that she understood and she is given this plan. All questions have been answered. She'll be discharged. - Lab Data Result diagrams: 06/12/17 12:25 06/12/17 12:25 Lab Results 06/12/17 06/12/17 06/12/17 Range/Units 12:25 12:25 12:25 WBC 8.9 (3.8-10.6) k/uL RBC 4.36 (3.80-5.40) m/uL Hgb 13.2 (11.4-16.0) gm/dL Hct 40.2 (34.0-46.0) % MCV 92.1 (80.0-100.0) fL MCH 30.2 (25.0-35.0) pg MCHC 32.8 (31.0-37.0) g/dL RDW 13.6 (11.5-15.5) % Plt Count 200 (150-450) k/uL Neutrophils % 71 % Lymphocytes % 22 % Monocytes % 4 % Eosinophils % 1 % Basophils % 1 % Neutrophils # 6.3 (1.3-7.7) k/uL Lymphocytes # 2.0 (1.0-4.8) k/uL Monocytes # 0.4 (0-1.0) k/uL Eosinophils # 0.1 (0-0.7) k/uL Basophils # 0.0 (0-0.2) k/uL Sodium 143 (137-145) mmol/L Potassium 4.4 (3.5-5.1) mmol/L Chloride 105 (98-107) mmol/L Carbon Dioxide 29 (22-30) mmol/L Anion Gap 9 mmol/L BUN 14 (7-17) mg/dL Creatinine 0.63 (0.52-1.04) mg/dL Est GFR (MDRD) Af Amer >60 (>60 ml/min/1.73 sqM) Est GFR (MDRD) Non-Af >60 (>60 ml/min/1.73 sqM) Glucose 99 (74-99) mg/dL Calcium 10.1 (8.4-10.2) mg/dL Total Bilirubin 0.5 (0.2-1.3) mg/dL AST 24 (14-36) U/L ALT 32 (9-52) U/L Alkaline Phosphatase 88 (38-126) U/L Troponin I <0.012 (0.000-0.034) ng/mL Total Protein 7.1 (6.3-8.2) g/dL Albumin 4.1 (3.5-5.0) g/dL Urine Color Urine Appearance (Clear) Urine pH (5.0-8.0) Ur Specific [place] (1.001-1.035) Urine Protein (Negative) Urine Glucose (UA) (Negative) Urine Ketones (Negative) Urine Blood (Negative) Urine Nitrite (Negative) Urine Bilirubin (Negative) Urine Urobilinogen (<2.0) mg/dL Ur Leukocyte Esterase (Negative) 06/12/17 Range/Units 13:16 WBC (3.8-10.6) k/uL RBC (3.80-5.40) m/uL Hgb (11.4-16.0) gm/dL Hct (34.0-46.0) % MCV (80.0-100.0) fL MCH (25.0-35.0) pg MCHC (31.0-37.0) g/dL RDW (11.5-15.5) % Plt Count (150-450) k/uL Neutrophils % % Lymphocytes % % Monocytes % % Eosinophils % % Basophils % % Neutrophils # (1.3-7.7) k/uL Lymphocytes # (1.0-4.8) k/uL Monocytes # (0-1.0) k/uL Eosinophils # (0-0.7) k/uL Basophils # (0-0.2) k/uL Sodium (137-145) mmol/L Potassium (3.5-5.1) mmol/L Chloride (98-107) mmol/L Carbon Dioxide (22-30) mmol/L Anion Gap mmol/L BUN (7-17) mg/dL Creatinine (0.52-1.04) mg/dL Est GFR (MDRD) Af Amer (>60 ml/min/1.73 sqM) Est GFR (MDRD) Non-Af (>60 ml/min/1.73 sqM) Glucose (74-99) mg/dL Calcium (8.4-10.2) mg/dL Total Bilirubin (0.2-1.3) mg/dL AST (14-36) U/L ALT (9-52) U/L Alkaline Phosphatase (38-126) U/L Troponin I (0.000-0.034) ng/mL Total Protein (6.3-8.2) g/dL Albumin (3.5-5.0) g/dL Urine Color Light Yellow Urine Appearance Clear (Clear) Urine pH 6.5 (5.0-8.0) Ur Specific [place] 1.009 (1.001-1.035) Urine Protein Negative (Negative) Urine Glucose (UA) Negative (Negative) Urine Ketones Negative (Negative) Urine Blood Negative (Negative) Urine Nitrite Negative (Negative) Urine Bilirubin Negative (Negative) Urine Urobilinogen <2.0 (<2.0) mg/dL Ur Leukocyte Esterase Negative (Negative) - Radiology Data Radiology results: report reviewed, image reviewed Disposition Clinical Impression: Hypertension, uncontrolled Disposition: HOME SELF-CARE Condition: Stable Instructions: Hypertension (ED) Additional Instructions: Please use medication as discussed. Please follow up with family doctor if symptoms have not improved over the next two days. Please return to the emergency room if your symptoms increase or worsen or for any other concerns. Referrals: Martinez Saavedra MD [Primary Care Provider] - 1-2 days Time of Disposition: 13:38
[2017-06-12 12:50] LABS: Basophils % (A) 1 %; Eosinophils # (A) 0.1 k/uL (0-0.7); Eosinophils % (A) 1 %; HCT 40.2 % (34.0-46.0); HGB 13.2 gm/dL (11.4-16.0); Lymphocytes % (A) 22 %; MCH 30.2 pg (25.0-35.0); MCHC 32.8 g/dL (31.0-37.0); MCV 92.1 fL (80.0-100.0); Mean Platelet Volume 7.6; Monocytes # (A) 0.4 k/uL (0-1.0); Monocytes % (A) 4 %; Neutrophils # (A) 6.3 k/uL (1.3-7.7); Neutrophils % (A) 71 %; Platelet Count 200 k/uL (150-450); RBC 4.36 m/uL (3.80-5.40); RDW 13.6 % (11.5-15.5); WBC 8.9 k/uL (3.8-10.6)
--- NOTE | 2017-06-12 13:01 | CT ---
EXAMINATION TYPE: CT brain wo con DATE OF EXAM: 06/12/2017 HISTORY: Elevated blood pressure CT DLP: 1121 mGycm. Automated Exposure Control for Dose Reduction was Utilized. TECHNIQUE: CT scan of the head is performed without contrast. COMPARISON: CT brain April 03, 2017. MRI brain April 23, 2017 FINDINGS: There is no acute intracranial hemorrhage or midline shift identified. Ventricles and sul ci are stable and within normal limits in size. There is low-attenuation in the periventricular whit e matter consistent with chronic small vessel ischemic change. 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 There is marked in terval improvement in paranasal sinus disease with posterior opacity bilateral maxillary sinuses like ly reflecting residual mucosal thickening and/or mucous retention cysts. The globes are intact bilate rally. There is improving opacification right mastoid air cells also seen. IMPRESSION: No acute intracranial hemorrhage or midline shift. There is mild chronic small vessel i schemic change redemonstrated. There is improving paranasal sinus disease and right mastoid opacifica tion noted.
[2017-06-12 13:15] LABS: ALT 32 U/L (9-52); AST 24 U/L (14-36); Albumin 4.1 g/dL (3.5-5.0); Alkaline Phosphatase 88 U/L (38-126); Anion Gap 9 mmol/L; Blood Urea Nitrogen 14 mg/dL (7-17); Calcium 10.1 mg/dL (8.4-10.2); Carbon Dioxide 29 mmol/L (22-30); Chloride 105 mmol/L (98-107); Glucose 99 mg/dL (74-99); Potassium 4.4 mmol/L (3.5-5.1); Sodium 143 mmol/L (137-145); Total Bilirubin 0.5 mg/dL (0.2-1.3); Total Protein 7.1 g/dL (6.3-8.2)
[2017-06-12 13:35] LABS: Appearance,Urine Clear (Clear); Bilirubin,Urine Negative (Negative); Blood,Urine Negative (Negative); Color,Urine Light Yellow; Glucose,Urine (UA) Negative (Negative); Ketones,Urine Negative (Negative); Leukocyte Esterase,Urine Negative (Negative); Nitrite,Urine Negative (Negative); PH, Urine 6.5 (5.0-8.0); Protein,Urine Negative (Negative); Specific Gravity,Urine 1.009 (1.001-1.035); Urobilinogen,Urine <2.0 mg/dL (<2.0)
[2017-06-12 14:10] VITALS: BP 159/74; PULSE 79; RESP 18; TEMP 97.4
== END 2017-06-12 14:10 | disposition home or self-care (01) ==
LOC: EC 11:24
DX: I10 Essential (primary) hypertension (principal); R51 Headache; E78.5 Hyperlipidemia, unspecified; Z87.891 Personal history of nicotine dependence; Z79.899 Other long term (current) drug therapy; Z88.0 Allergy status to penicillin
CPT/HCPCS: 36415; 70450; 80053; 81003; 84484; 85025; 93005; 99284

== ENCOUNTER 2017-06-18 23:19 | Emergency (ER) | payer OTHER ==
[2017-06-18] MEDS ORDERED: cloNIDine HCL 0.1 MG TAB PO STA (23:57)
[2017-06-18] MEDS ORDERED: amLODIPine 5 MG TAB PO STA (23:58)
--- NOTE | 2017-06-19 00:03 | ED ---
General Adult HPI - General Chief complaint: Recheck/Abnormal Lab/Rx Stated complaint: HTN Time Seen by Provider: 06/18/17 23:28 Source: patient Mode of arrival: EMS Limitations: no limitations - History of Present Illness Initial comments: This patient is a 66-year-old woman who presents to be evaluated for hypertension. This patient has been having intermittently elevated blood pressures since March. She states that she has been starting to see Dr. Saavedra, and has had her medication adjusted but she still has times when the blood pressure as above 200 systolic. The patient states she is not having symptoms now, back in March and April she was having headaches related to the blood pressure. the patient states that she saw Dr. Saavedra today and he recommended another medication but she has not had a chance start yet. She checked her blood pressure routinely tonight and it was above 200 so she decided to be seen here. -: month(s) Improves with: medication Worsens with: none Associated Symptoms: denies other symptoms - Related Data Home Medications Medication Instructions Recorded Confirmed Albuterol Sulfate [Ventolin HFA] 1 - 2 puff INHALATION RT-Q6H PRN 12/31/1306/18 Cholecalciferol [Vitamin D3] 1,000 unit PO DAILY 12/31/13 06/18/17 Atorvastatin [Lipitor] 40 mg PO HS 05/07/17 06/18/17 cloNIDine HCL [Catapres] 0.1 mg PO BID 05/07/17 06/18/17 Acetaminophen [Tylenol Extra 500 mg PO Q6H PRN 06/18/17 06/18/17 Strength] Cyanocobalamin [Vitamin B-12] 500 mcg PO DAILY 06/18/17 06/18/17 amLODIPine [Norvasc] 2.5 mg PO DAILY 06/18/17 06/18/17 Previous Rx's Medication Instructions Recorded Hydrochlorothiazide [Hydrodiuril] 12.5 mg PO DAILY #30 tab 05/09/17 Allergies Allergy/AdvReac Type Severity Reaction Status Date / Time amoxicillin [Amoxicillin] Allergy Rash/Hives Verified 06/18/17 23:31 Review of Systems ROS Statement: Those systems with pertinent positive or pertinent negative responses have been documented in the HPI. ROS Other: All systems not noted in ROS Statement are negative. Constitutional: Denies: weakness Eyes: Denies: vision change Respiratory: Denies: cough, dyspnea Cardiovascular: Denies: chest pain, palpitations, orthopnea, edema, syncope Gastrointestinal: Denies: abdominal pain, vomiting, diarrhea Genitourinary: Denies: dysuria Musculoskeletal: Denies: back pain Skin: Denies: rash Neurological: Denies: headache, weakness, numbness Past Medical History Past Medical History: Diabetes Mellitus, Hyperlipidemia, Hypertension Additional Past Medical History / Comment(s): pt states she is a diet controlled diabetic. History of Any Multi-Drug Resistant Organisms: None Reported Past Surgical History: Tubal Ligation Past Anesthesia/Blood Transfusion Reactions: No Reported Reaction Past Psychological History: Anxiety, Depression, Panic Disorder Smoking Status: Former smoker Past Alcohol Use History: None Reported Past Drug Use History: None Reported - Past Family History Mother Additional Family Medical History / Comment(s): suicide General Exam Limitations: no limitations General appearance: alert, in no apparent distress Head exam: Present: atraumatic, normocephalic Eye exam: Present: normal appearance. Absent: scleral icterus, conjunctival injection Respiratory exam: Present: normal lung sounds bilaterally. Absent: respiratory distress, wheezes, rales, rhonchi, stridor Cardiovascular Exam: Present: regular rate, normal rhythm, normal heart sounds. Absent: systolic murmur, diastolic murmur, rubs, gallop GI/Abdominal exam: Present: soft. Absent: distended, tenderness, guarding, rebound, rigid, mass, pulsatile mass Extremities exam: Present: normal inspection, normal capillary refill. Absent: pedal edema, calf tenderness Back exam: Present: normal inspection. Absent: CVA tenderness (R), CVA tenderness (L) Neurological exam: Present: alert Skin exam: Present: warm, dry, intact, normal color. Absent: rash Course Vital Signs 06/18/17 06/19/17 06/19/17 23:20 00:24 01:03 Temperature 97.9 F Pulse Rate 72 61 63 Respiratory 16 16 18 Rate Blood Pressure 227/99 196/95 213/99 O2 Sat by Pulse 95 95 96 Oximetry 06/19/17 06/19/17 06/19/17 02:40 03:00 03:03 Temperature Pulse Rate 60 68 61 Respiratory 18 18 18 Rate Blood Pressure 196/90 208/95 193/88 O2 Sat by Pulse 95 95 95 Oximetry 01/31/18 03:27 Temperature Pulse Rate 59 L Respiratory 18 Rate Blood Pressure 201/84 O2 Sat by Pulse 95 Oximetry Disposition Clinical Impression: Hypertension Disposition: HOME SELF-CARE Condition: Good Instructions: Hypertension (ED) Referrals: Martinez Saavedra MD [Primary Care Provider] - 1-2 days
[2017-06-19] MEDS ORDERED: LORazepam 1 MG TAB PO STA (02:49)
[2017-06-19] MEDS ORDERED: NITROGLYCERIN SL TABS 0.4 MG TAB SUBLINGUAL STA (02:56)
[2017-06-19] MEDS ORDERED: cloNIDine HCL 0.1 MG TAB PO STA (02:57)
[2017-06-19] MEDS ORDERED: ACETAMINOPHEN TAB 325 MG TAB PO STA (03:22)
[2017-06-19 05:18] VITALS: BP 140/65; PULSE 62; RESP 18; TEMP 96.7
== END 2017-06-19 04:45 | disposition home or self-care (01) ==
LOC: EC 23:19
DX: I10 Essential (primary) hypertension (principal); E78.5 Hyperlipidemia, unspecified; Z87.891 Personal history of nicotine dependence; Z79.899 Other long term (current) drug therapy; Z88.0 Allergy status to penicillin
CPT/HCPCS: 99284

== ENCOUNTER 2017-07-07 20:41 | Observation (INO) | payer OTHER ==
--- NOTE | 2017-07-07 20:54 | ED ---
Chest Pain HPI - General Stated Complaint: CHEST PAIN Time Seen by Provider: 07/07/17 20:52 Source: EMS Mode of arrival: EMS Limitations: no limitations - History of Present Illness Initial Comments: This patient is a 66-year-old woman who presents to be evaluated for chest pain. The patient states she had been in her usual state of health, and then she got up from a seated position and went to put a leash on her dog, and while she was doing this she noted substernal chest pain. She states that the pain got better after minute but then it recurred after little while so she called EMS. She states that the pain is aching, it does not radiate, it is moderate intensity rated the pain has improved since then but has not completely resolved. She did take 324 mg of aspirin at home, and then she was given another 324 mg of aspirin by EMS. The patient denies any accompanying symptoms. MD Complaint: chest pain Onset/Timin -: hour(s) Onset: other Pain Location: substernal Pain Radiation: none Severity: moderate Quality: aching Consistency: constant Improves With: nothing Worsens With: nothing Treatments Prior to Arrival: aspirin - Related Data Home Medications Medication Instructions Recorded Confirmed Albuterol Sulfate [Ventolin HFA] 1 - 2 puff INHALATION RT-Q6H PRN 12/31/1307/07 Cholecalciferol [Vitamin D3] 1,000 unit PO DAILY 12/31/13 07/07/17 Atorvastatin [Lipitor] 40 mg PO HS 05/07/17 07/07/17 cloNIDine HCL [Catapres] 0.1 mg PO TID 05/07/17 07/07/17 Cyanocobalamin [Vitamin B-12] 500 mcg PO DAILY 06/18/17 07/07/17 Loratadine [Claritin] 10 mg PO DAILY 07/07/17 07/07/17 Losartan [Cozaar] 50 mg PO DAILY@1600 07/07/17 07/07/17 Previous Rx's Medication Instructions Recorded Hydrochlorothiazide [Hydrodiuril] 12.5 mg PO DAILY #30 tab 05/09/17 Allergies Allergy/AdvReac Type Severity Reaction Status Date / Time amoxicillin [Amoxicillin] Allergy Rash/Hives Verified 07/07/17 21:10 Review of Systems ROS Statement: Those systems with pertinent positive or pertinent negative responses have been documented in the HPI. ROS Other: All systems not noted in ROS Statement are negative. Constitutional: Denies: fever, chills Respiratory: Denies: cough, dyspnea Cardiovascular: Reports: as per HPI, chest pain. Denies: palpitations, dyspnea on exertion, edema, syncope Gastrointestinal: Denies: abdominal pain, nausea, vomiting Genitourinary: Denies: dysuria, hematuria Musculoskeletal: Denies: back pain Skin: Denies: rash Neurological: Denies: headache, weakness, numbness EKG Findings - EKG Results: EKG: interpreted by ANDREW TAMEZ, sinus rhythm (The rate is proximal 70 bpm), normal axis, normal QRS, normal ST/T, no acute changes - NV, Pacemaker, Normal: Normal tracing: normal tracing Past Medical History Past Medical History: Diabetes Mellitus, Hyperlipidemia, Hypertension Additional Past Medical History / Comment(s): pt states she is a diet controlled diabetic. History of Any Multi-Drug Resistant Organisms: None Reported Past Surgical History: Tubal Ligation Past Anesthesia/Blood Transfusion Reactions: No Reported Reaction Past Psychological History: Anxiety, Depression, Panic Disorder Smoking Status: Former smoker Past Alcohol Use History: None Reported Past Drug Use History: None Reported - Past Family History Mother Additional Family Medical History / Comment(s): suicide General Exam Limitations: no limitations General appearance: alert, in no apparent distress Head exam: Present: atraumatic, normocephalic Eye exam: Present: normal appearance. Absent: scleral icterus, conjunctival injection Neck exam: Present: normal inspection Respiratory exam: Present: normal lung sounds bilaterally. Absent: respiratory distress, wheezes, rales, rhonchi, stridor Cardiovascular Exam: Present: regular rate, normal rhythm, normal heart sounds. Absent: systolic murmur, diastolic murmur, rubs, gallop GI/Abdominal exam: Present: soft. Absent: distended, tenderness, guarding, rebound Extremities exam: Present: normal inspection, normal capillary refill. Absent: pedal edema, calf tenderness Back exam: Absent: CVA tenderness (R), CVA tenderness (L) Neurological exam: Present: alert Skin exam: Present: warm, dry, intact, normal color. Absent: rash Course Vital Signs 07/07/17 07/07/17 07/07/17 20:44 21:43 22:42 Temperature 97 F L Pulse Rate 84 65 65 Respiratory 18 18 18 Rate Blood Pressure 235/101 195/82 156/78 O2 Sat by Pulse 94 L 97 100 Oximetry 07/08/17 00:13 Temperature Pulse Rate 64 Respiratory 18 Rate Blood Pressure 165/74 O2 Sat by Pulse 100 Oximetry Disposition Clinical Impression: Hypertension, Chest pain Disposition: ADMITTED IP TO THIS HOSP Condition: Good Referrals: Martinez Saavedra MD [Primary Care Provider] - 1-2 days
[2017-07-07] MEDS ORDERED: cloNIDine HCL 0.2 MG TAB PO STA (21:09)
[2017-07-07 21:20] LABS: Basophils # (A) 0.1 k/uL (0-0.2); Basophils % (A) 1 %; Eosinophils # (A) 0.2 k/uL (0-0.7); Eosinophils % (A) 3 %; HCT 38.5 % (34.0-46.0); HGB 12.3 gm/dL (11.4-16.0); Lymphocytes # (A) 2.5 k/uL (1.0-4.8); Lymphocytes % (A) 28 %; MCH 30.1 pg (25.0-35.0); MCV 94.2 fL (80.0-100.0); Mean Platelet Volume 8.4; Monocytes # (A) 0.5 k/uL (0-1.0); Monocytes % (A) 6 %; Neutrophils # (A) 5.7 k/uL (1.3-7.7); Neutrophils % (A) 62 %; Platelet Count 222 k/uL (150-450); RBC 4.08 m/uL (3.80-5.40); RDW 13.4 % (11.5-15.5); WBC 9.2 k/uL (3.8-10.6)
--- NOTE | 2017-07-07 21:35 | XR ---
EXAMINATION TYPE: XR chest 1V portable DATE OF EXAM: 07/07/2017 COMPARISON: 12/31/2013 HISTORY: Chest pain TECHNIQUE: Single frontal view of the chest is obtained. FINDINGS: There is no heart failure nor confluent pneumonic infiltrate. Costophrenic angles are marj r. There are chest leads. IMPRESSION: No active cardiopulmonary disease. There is clearing of some mild infiltrate in the lowe r lobes compared to old exam.
[2017-07-07 21:37] LABS: D-Dimer 1.22 mg/L FEU (<0.60)
[2017-07-07 21:41] LABS: INR 0.9 (<1.2); Partial Thromboplastin Time 23.1 sec (22.0-30.0); Prothrombin Time 9.5 sec (9.0-12.0)
[2017-07-07 21:46] LABS: ALT 54 U/L (9-52); AST 47 U/L (14-36); Alkaline Phosphatase 94 U/L (38-126); Amylase 38 U/L (30-110); Anion Gap 12 mmol/L; Blood Urea Nitrogen 23 mg/dL (7-17); Calcium 9.7 mg/dL (8.4-10.2); Carbon Dioxide 31 mmol/L (22-30); Chloride 102 mmol/L (98-107); Glucose 87 mg/dL (74-99); Lipase 74 U/L (23-300); Potassium 4.2 mmol/L (3.5-5.1); Sodium 145 mmol/L (137-145); Total Bilirubin 0.3 mg/dL (0.2-1.3); Total Protein 7.2 g/dL (6.3-8.2)
[2017-07-07 21:50] LABS: Creatine Kinase 36 U/L (30-135)
[2017-07-07 22:03] LABS: Creatine Kinase MB 0.4 ng/mL (0.0-2.4); Troponin I <0.012 ng/mL (0.000-0.034)
[2017-07-07] MEDS ORDERED: RX INFO: IV CONTRAST WAS GIVEN 1 EACH MISC MISCELLANE PRN (22:45)
[2017-07-07 23:08] LABS: Appearance,Urine Clear (Clear); Bilirubin,Urine Negative (Negative); Blood,Urine Negative (Negative); Color,Urine Yellow; Glucose,Urine (UA) Negative (Negative); Hyaline Casts,Urine 3 /lpf (0-2); Ketones,Urine Negative (Negative); Leukocyte Esterase,Urine Moderate (Negative); Mucus,Urine Rare /hpf; Nitrite,Urine Negative (Negative); PH, Urine 5.5 (5.0-8.0); Protein,Urine Negative (Negative); RBC,Urine 1 /hpf (0-5); Specific Gravity,Urine 1.017 (1.001-1.035); Squamous Epithelial Cell,Urine <1 /hpf (0-4); Urobilinogen,Urine <2.0 mg/dL (<2.0); WBC,Urine 7 /hpf (0-5)
--- NOTE | 2017-07-07 23:32 | CT ---
EXAMINATION TYPE: CT chest angio for PE DATE OF EXAM: 07/07/2017 COMPARISON: 12/31/2013 HISTORY: Prior on synapse, chest pain elevated d-dimer R/O PE CT DLP: 292.90 mGycm Automated exposure control for dose reduction was used. CONTRAST: CT Chest for pulmonary embolism performed with with IV Contrast, patient injected with 60 mL of Omnip aque 350. FINDINGS: There are 3-D post processed images. There is mild pulmonary emphysema. Heart is enlarged. There is interstitial subpleural density at the lung bases consistent with fibrosis. There is no pleural effusion. There are nonspecific bronchial lymph nodes that measure up to 1 cm. There is no evidence of aortic aneurysm or dissection. I see no filling defects in the pulmonary johanna ancelmo. There is no mediastinal adenopathy. There is spurring in the thoracic spine. IMPRESSION: No evidence of pulmonary embolism. Mild atherosclerotic vascular disease. Emphysema and pulmonary fib rosis. No adverse change compared to old exam.
[2017-07-08] MEDS ORDERED: NITROGLYCERIN SL TABS 0.4 MG TAB SUBLINGUAL PRN (00:46)
[2017-07-08] MEDS ORDERED: ALBUTEROL NEBULIZED 2.5 MG/3 ML INHALATION PRN (00:49)
[2017-07-08 01:37] VITALS: BMI 30.1
[2017-07-08] MEDS: HEPARIN SODIUM,PORCINE 5,000 UNIT/ML 1 ML VIAL SQ SCH ×3 (02:45→16:55)
[2017-07-08 03:13] LABS: Creatine Kinase 30 U/L (30-135)
[2017-07-08 03:26] LABS: Creatine Kinase MB 0.5 ng/mL (0.0-2.4); Troponin I <0.012 ng/mL (0.000-0.034)
[2017-07-08] MEDS: CHOLECALCIFEROL 1,000 UNIT TAB PO SCH (08:16)
[2017-07-08] MEDS: CYANOCOBALAMIN 500 MCG TAB PO SCH (08:16)
[2017-07-08] MEDS: LORATADINE 10 MG TAB PO SCH (08:17)
[2017-07-08] MEDS ORDERED: HYDROCHLOROTHIAZIDE 25 MG TAB PO SCH (09:00)
[2017-07-08] MEDS ORDERED: cloNIDine HCL 0.1 MG TAB PO SCH (09:00)
[2017-07-08 09:23] LABS: Creatine Kinase 33 U/L (30-135)
[2017-07-08 09:33] LABS: Creatine Kinase MB 0.6 ng/mL (0.0-2.4); Troponin I <0.012 ng/mL (0.000-0.034)
[2017-07-08] MEDS ORDERED: cloNIDine HCL 0.1 MG TAB PO STA (12:19)
[2017-07-08] MEDS ORDERED: HYDROCHLOROTHIAZIDE 50 MG TAB PO SCH (12:21)
[2017-07-08] MEDS ORDERED: HYDROCHLOROTHIAZIDE 25 MG TAB PO ONE (12:35)
[2017-07-08] MEDS: LOSARTAN 50 MG TAB PO SCH (12:36)
[2017-07-08] MEDS: cloNIDine HCL 0.2 MG TAB PO SCH ×2 (15:51→20:24)
[2017-07-08] MEDS ORDERED: LOSARTAN 50 MG TAB PO SCH ×2 (16:00)
--- NOTE | 2017-07-08 16:19 | P.HPIM ---
History of Present Illness 66-year-old female came in with complaints of chest pain in the midsternal area sharp in nature nonradiating 6 x 10 nonexertional nonpleuritic not associated with food. Patient had elevated blood pressure at that time with a systolic going about 200. Patient is highly noncompliant with anti-happens medications recommendations and the diet recommendations. Patient multiple medication changes are were made today for her hypertension. Patient had a recent stress test which was negative EKG and troponins didn't have not impressive for acute coronary syndrome. Because of elevated blood pressure multiple hospitalization all monitor her blood pressure here increase the dose of hydrochlorothiazide we may need to increase the dose of losartan as well. Patient was resumed on clonidine at home dose. Extensive counseling was provided to the patient regarding compliance with medications and diet Review of Systems REVIEW OF SYSTEMS: CONSTITUTIONAL: No fever, no malaise, no fatigue. HEENT: No recent visual problems or hearing problems. Denied any sore throat. CARDIOVASCULAR: No orthopnea, PND, no palpitations, no syncope. PULMONARY: No shortness of breath, no cough, no hemoptysis. GASTROINTESTINAL: No diarrhea, no nausea, no vomiting, no abdominal pain. Normoactive bowel sounds. NEUROLOGICAL: No headaches, no weakness, no numbness. HEMATOLOGICAL: Denies any bleeding or petechiae. GENITOURINARY: Denies any burning micturition, frequency, or urgency. MUSCULOSKELETAL/RHEUMATOLOGICAL: Denies any joint pain, swelling, or any muscle pain. ENDOCRINE: Denies any polyuria or polydipsia. The rest of the 14-point review of systems is negative. Past Medical History Past Medical History: Diabetes Mellitus, Hyperlipidemia, Hypertension Additional Past Medical History / Comment(s): pt states she is a diet controlled diabetic. dosent check glucose at home. History of Any Multi-Drug Resistant Organisms: None Reported Past Surgical History: Tubal Ligation Past Anesthesia/Blood Transfusion Reactions: No Reported Reaction Past Psychological History: Anxiety, Depression, Panic Disorder Smoking Status: Former smoker Past Alcohol Use History: None Reported Past Drug Use History: None Reported - Past Family History Mother Additional Family Medical History / Comment(s): suicide Medications and Allergies Home Medications Medication Instructions Recorded Confirmed Type Albuterol Sulfate [Ventolin HFA] 1 - 2 puff INHALATION RT-Q6H PRN 12/31/1307/07 History Cholecalciferol [Vitamin D3] 1,000 unit PO DAILY 12/31/13 07/07/17 History Atorvastatin [Lipitor] 40 mg PO HS 05/07/17 07/07/17 History cloNIDine HCL [Catapres] 0.1 mg PO TID 05/07/17 07/07/17 History Hydrochlorothiazide [Hydrodiuril] 12.5 mg PO DAILY #30 tab 05/09/17 07/07/17 Rx Cyanocobalamin [Vitamin B-12] 500 mcg PO DAILY 06/18/17 07/07/17 History Loratadine [Claritin] 10 mg PO DAILY 07/07/17 07/07/17 History Losartan [Cozaar] 50 mg PO DAILY@1600 07/07/17 07/07/17 History Allergies Allergy/AdvReac Type Severity Reaction Status Date / Time amoxicillin [Amoxicillin] Allergy Rash/Hives Verified 07/07/17 21:10 Physical Exam Vitals: Vital Signs Temp Pulse Pulse Resp BP BP Pulse Ox 07/08/17 15:22 97.6 F 73 18 219/100 94 L 07/08/17 11:32 97.6 F 68 18 152/75 93 L 07/08/17 08:00 97.5 F L 74 18 132/70 94 L 07/08/17 04:00 97.5 F L 63 18 161/87 98 07/08/17 00:57 98.4 F 70 16 170/78 98 07/08/17 00:46 97 07/08/17 00:13 64 18 165/74 100 07/07/17 22:42 65 18 156/78 100 07/07/17 21:43 65 18 195/82 97 07/07/17 20:44 97 F L 84 18 235/101 94 L Intake and Output 07/08/17 07/08/17 07/08/17 06:59 14:59 22:59 Intake Total 360 Output Total 2 Balance 358 Intake: Oral 360 Output: Stool 2 Other: # Voids 1 1 Weight 74.7 kg PHYSICAL EXAMINATION: GENERAL: The patient is alert and oriented x3, not in any acute distress. Well developed, well nourished. HEENT: Pupils are round and equally reacting to light. EOMI. No scleral icterus. No conjunctival pallor. Normocephalic, atraumatic. No pharyngeal erythema. No thyromegaly. CARDIOVASCULAR: S1 and S2 present. No murmurs, rubs, or gallops. PULMONARY: Chest is clear to auscultation, no wheezing or crackles. ABDOMEN: Soft, nontender, nondistended, normoactive bowel sounds. No palpable organomegaly. MUSCULOSKELETAL: No joint swelling or deformity. EXTREMITIES: No cyanosis, clubbing, or pedal edema. NEUROLOGICAL: Gross neurological examination did not reveal any focal deficits. SKIN: No rashes. Results CBC & Chem 7: 07/07/17 20:45 07/07/17 20:45 Labs: Abnormal Lab Results - Last 24 Hours (Table) 07/07/17 07/07/17 07/07/17 Range/Units 20:45 20:45 22:59 D-Dimer 1.22 H (<0.60) mg/L FEU Carbon Dioxide 31 H (22-30) mmol/L BUN 23 H (7-17) mg/dL AST 47 H (14-36) U/L ALT 54 H (9-52) U/L Ur Leukocyte Esterase Moderate H (Negative) Urine WBC 7 H (0-5) /hpf Hyaline Casts 3 H (0-2) /lpf Urine Mucus Rare H (None) /hpf Thrombosis Risk Factor Assmnt - Choose All That Apply Other Risk Factors: Yes Each Risk Factor Represents 2 Points: Age 61-74 years Thrombosis Risk Factor Assessment Total Risk Factor Score: 2 Thrombosis Risk Factor Assessment Level: Low Risk Assessment and Plan Plan: -Chest pain: Probably related to elevated blood pressure rule out acute coronary syndromes was evaluated by cardiology and had a recent cardiac catheterization. -Uncontrolled hypertension of accelerated hypertension patient's diuretic therapy will be increased and above-mentioned changes in medications are being made will monitor her overnight. -Type 2 diabetes mellitus: Patient will be resumed on her home regimen will monitor her here. -Hyperlipidemia continue with her statin. -Ruled out PE
--- NOTE | 2017-07-08 18:26 | CONS ---
CONSULTATION This is a 66-year-old lady who sees Dr. Christensen in the outpatient setting. She has labile hypertension and has been in the hospital on a few occasions. She came in this time complaining of a sharp pain in the chest that occurred when she bent down to put a leash on her dog. The pain was very brief, sharp. Then her blood pressure was elevated, and therefore she came into the hospital. Her pressure has been labile. Initial numbers were good, but subsequent blood pressure has been elevated. There was an increase in her D-dimer level and she went on to have CT angiography which did not reveal any evidence of aortic aneurysm, dissection or pulmonary embolism. She had a Lexiscan stress test last week in the office and I checked with Dr. Christensen, who sees her, and he indicated to me that the nuclear scan was unremarkable for ischemia. We communicated this information to the patient as well. She is known to have a normal systolic function by echocardiogram which was performed in April. She has mild pulmonary hypertension. PAST MEDICAL HISTORY: 1. Hypertension. 2. Atypical chest pain with a normal stress test. 3. Hyperlipidemia. HOME MEDICATIONS: 1. Cozaar 50 mg daily. 2. Hydrochlorothiazide 12.5 mg daily. 3. Atorvastatin 40 mg daily. 4. Clonidine 0.1 mg t.i.d. ALLERGIES: AMOXICILLIN. REVIEW OF SYSTEMS: Unremarkable other than the above-mentioned facts. PHYSICAL EXAMINATION: Blood pressure is 150/70. Pulse rate is about 68 per minute, regular. HEENT: Unremarkable. Fundus was not examined by me. NECK: Supple. No JVD. I do not hear a carotid bruit. Heart exam reveals S1, S2 heard normally without a rub, murmur or gallop. Lungs are clear. ABDOMEN: Soft, nontender. Lower extremities reveal normal pulses. No edema. Central nervous system is normal. EKG revealed sinus mechanism, no acute changes. LAB DATA: Unremarkable troponins. IMPRESSION: 1. Labile hypertension which is under fairly decent control now. 2. Atypical chest pain with a negative stress test last week. 3. Hyperlipidemia. RECOMMENDATIONS: I am recommending that we add clonidine, increase hydrochlorothiazide, increase activity. If she has no further symptoms, she can be discharged either later today or tomorrow morning and follow up with Dr. Christensen as an outpatient. MMODL / IJN: [id number] /
[2017-07-08] MEDS ORDERED: hydrALAZINE HCL 20 MG/ML 1 ML VIAL IVP PRN (19:00)
[2017-07-08] MEDS: ACETAMINOPHEN TAB 325 MG TAB PO PRN (20:24)
[2017-07-08] MEDS ORDERED: ATORVASTATIN 40 MG TAB PO SCH (21:00)
[2017-07-08 23:48] VITALS: RESP 16
[2017-07-09] MEDS: HEPARIN SODIUM,PORCINE 5,000 UNIT/ML 1 ML VIAL SQ SCH ×3 (01:13→15:16)
[2017-07-09] MEDS: ACETAMINOPHEN TAB 325 MG TAB PO PRN (05:10)
[2017-07-09 06:45] LABS: Cholesterol 173 mg/dL (<200); HDL Cholesterol 45 mg/dL (40-60); LDL Cholesterol,Calculated 66 mg/dL (0-99); Triglycerides 310 mg/dL (<150)
[2017-07-09 07:47] VITALS: TEMP 98
[2017-07-09] MEDS: CYANOCOBALAMIN 500 MCG TAB PO SCH (08:02)
[2017-07-09] MEDS: LORATADINE 10 MG TAB PO SCH (08:03)
[2017-07-09] MEDS: cloNIDine HCL 0.2 MG TAB PO SCH ×2 (08:03→15:16)
[2017-07-09] MEDS: CHOLECALCIFEROL 1,000 UNIT TAB PO SCH (08:06)
[2017-07-09] MEDS ORDERED: ASPIRIN 325 MG TAB PO SCH (09:00)
[2017-07-09 11:14] VITALS: BP 125/72; PULSE 59
--- NOTE | 2017-07-09 11:57 | PN ---
PROGRESS NOTE This lady's blood pressure is much better controlled on the current regimen. She did some walking and even after walking her pressure control is excellent. Vital signs are stable. Blood pressure is 140/70. S1, S2 heard normally. Lungs are clear. Abdomen and lower extremity exam unchanged. She had a recent Lexiscan stress test that was normal. She can be discharged and follow up with Dr. Christensen in 1 week. MMODL / IJN: [id number] /
[2017-07-09] MEDS: LOSARTAN 50 MG TAB PO SCH (15:16)
--- NOTE | 2017-07-09 15:30 | P.DS ---
Providers Date of admission: 07/08/17 00:48 Attending physician: Gold Nolen Consults: 07/08/17 00:46 Consult Physician Routine Consulting Provider: Wilver Christensen Consult Reason/Comments: chest pain. hypertension Do you want consulting provider notified?: Yes Primary care physician: Martinez Saavedra [facility] Course: 66-year-old female came in with complaints of chest pain in the midsternal area sharp in nature nonradiating 6 x 10 nonexertional nonpleuritic not associated with food. Patient had elevated blood pressure at that time with a systolic going about 200. Patient is highly noncompliant with anti-happens medications recommendations and the diet recommendations. Patient multiple medication changes are were made today for her hypertension. Patient had a recent stress test which was negative EKG and troponins didn't have not impressive for acute coronary syndrome. Because of elevated blood pressure multiple hospitalization all monitor her blood pressure here increase the dose of hydrochlorothiazide we may need to increase the dose of losartan as well. Patient was resumed on clonidine at home dose. Extensive counseling was provided to the patient regarding compliance with medications and diet. 07/09/2017 Patient is blood pressure is fairly well controlled now with the increased the dose of hydrochlorothiazide. Patient had a recent stress test and cardiology cleared her for discharge. Patient will be discharged today to follow with Dr. Saavedra as an outpatient. As an outpatient, her dose of losartan may need to be increased. PHYSICAL EXAMINATION: GENERAL: The patient is alert and oriented x3, not in any acute distress. Well developed, well nourished. HEENT: Pupils are round and equally reacting to light. EOMI. No scleral icterus. No conjunctival pallor. Normocephalic, atraumatic. No pharyngeal erythema. No thyromegaly. CARDIOVASCULAR: S1 and S2 present. No murmurs, rubs, or gallops. PULMONARY: Chest is clear to auscultation, no wheezing or crackles. ABDOMEN: Soft, nontender, nondistended, normoactive bowel sounds. No palpable organomegaly. MUSCULOSKELETAL: No joint swelling or deformity. EXTREMITIES: No cyanosis, clubbing, or pedal edema. NEUROLOGICAL: Gross neurological examination did not reveal any focal deficits. SKIN: No rashes. Assessment and Plan Plan: -Chest pain: Probably related to elevated blood pressure rule out acute coronary syndromes was evaluated by cardiology and had a recent cardiac catheterization. -Uncontrolled hypertension of accelerated hypertension -Type 2 diabetes mellitus: -Hyperlipidemia continue with her statin. -Ruled out PE Patient Condition at Discharge: Good Plan - Discharge Summary Discharge Rx Participant: No New Discharge Prescriptions: New Aspirin 81 mg PO DAILY #30 chew cloNIDine HCL [Catapres] 0.2 mg PO TID tab Hydrochlorothiazide [Hydrodiuril] 50 mg PO DAILY #30 tab Continue Cholecalciferol [Vitamin D3] 1,000 unit PO DAILY Albuterol Sulfate [Ventolin HFA] 1 - 2 puff INHALATION RT-Q6H PRN PRN Reason: Shortness Of Breath Atorvastatin [Lipitor] 40 mg PO HS Cyanocobalamin [Vitamin B-12] 500 mcg PO DAILY Losartan [Cozaar] 50 mg PO DAILY@1600 Loratadine [Claritin] 10 mg PO DAILY Discontinued cloNIDine HCL [Catapres] 0.1 mg PO TID Hydrochlorothiazide [Hydrodiuril] 12.5 mg PO DAILY #30 tab Discharge Medication List Albuterol Sulfate [Ventolin HFA] 1 - 2 puff INHALATION RT-Q6H PRN 12/31/13 [ History] Cholecalciferol [Vitamin D3] 1,000 unit PO DAILY 12/31/13 [History] Atorvastatin [Lipitor] 40 mg PO HS 05/07/17 [History] Cyanocobalamin [Vitamin B-12] 500 mcg PO DAILY 06/18/17 [History] Loratadine [Claritin] 10 mg PO DAILY 07/07/17 [History] Losartan [Cozaar] 50 mg PO DAILY@1600 07/07/17 [History] Aspirin 81 mg PO DAILY #30 chew 07/09/17 [Rx] Hydrochlorothiazide [Hydrodiuril] 50 mg PO DAILY #30 tab 07/09/17 [Rx] cloNIDine HCL [Catapres] 0.2 mg PO TID tab 07/09/17 [Rx] Follow up Appointment(s)/Referral(s): Martinez Saavedra MD [Primary Care Provider] - 3 Days Discharge Disposition: HOME SELF-CARE
[2017-07-10] MEDS ORDERED: ASPIRIN 81 MG PO SCH (09:00)
== END 2017-07-09 16:59 | disposition home or self-care (01) ==
LOC: EC 20:41 → 6SEL 07-08 00:48
PROVIDERS: ADMIT Hospitalist; ATTEND Hospitalist
DX: R07.2 Precordial pain (principal); R07.89 Other chest pain; I10 Essential (primary) hypertension; I27.20 Pulmonary hypertension, unspecified; R79.89 Other specified abnormal findings of blood chemistry; Z91.14 Patient's other noncompliance with medication regimen; Z91.19 Patient's noncompliance with other medical treatment and regimen; E11.9 Type 2 diabetes mellitus without complications; E78.5 Hyperlipidemia, unspecified; Z79.899 Other long term (current) drug therapy; Z88.0 Allergy status to penicillin; Z87.891 Personal history of nicotine dependence; F41.0 Panic disorder [episodic paroxysmal anxiety]; F32.9 Major depressive disorder, single episode, unspecified; Z81.8 Family history of other mental and behavioral disorders
CPT/HCPCS: 99285 ×2; 96372 ×2; 36415; 93005; 85379; 80061; 80053; 82150; 82550 ×2; 82553 ×2; 83690; 83735; 84484 ×2; 85025; 85610; 85730; 81001; 71045; 71275; G0378 ×2; J1644 ×2; Q9967

== ENCOUNTER 2017-08-14 05:53 | Emergency (ER) | payer OTHER ==
[2017-08-14 06:05] VITALS: BP 155/76; PULSE 98; RESP 20; TEMP 97.3
--- NOTE | 2017-08-14 06:20 | ED ---
General Adult HPI - General Chief complaint: Upper Respiratory Infection Stated complaint: COUGH Time Seen by Provider: 08/14/17 06:11 Source: patient, RN notes reviewed Mode of arrival: ambulatory Limitations: no limitations - History of Present Illness Initial comments: Patient is a pleasant 66-year-old female presenting to the emergency department. Onset of symptoms was close to week ago. Patient does have productive yellow sputum. Patient has chest congestion as well as sinus discomfort and sinus congestion. Patient may have had some low-grade fevers. Patient denies any dyspnea except during episodes of severe coughing - Related Data Home Medications Medication Instructions Recorded Confirmed Albuterol Sulfate [Ventolin HFA] 1 - 2 puff INHALATION RT-Q6H PRN 12/31/1308/14 Cholecalciferol [Vitamin D3] 1,000 unit PO DAILY 12/31/13 08/14/17 Atorvastatin [Lipitor] 40 mg PO HS 05/07/17 08/14/17 Cyanocobalamin [Vitamin B-12] 500 mcg PO DAILY 06/18/17 08/14/17 Loratadine [Claritin] 10 mg PO DAILY 07/07/17 08/14/17 Losartan [Cozaar] 50 mg PO DAILY@1600 07/07/17 08/14/17 [place]-3/Dha/Epa/Fish Oil [Fish Oil 1 each PO DAILY 08/14/17 08/14/17 500 mg Softgel] Potassium Chloride [Klor-Con 10] 10 meq PO DAILY 08/14/17 08/14/17 cloNIDine HCL [Catapres] 0.1 mg PO TID 08/14/17 08/14/17 Previous Rx's Medication Instructions Recorded Aspirin 81 mg PO DAILY #30 chew 07/09/17 Hydrochlorothiazide [Hydrodiuril] 50 mg PO DAILY #30 tab 07/09/17 Azithromycin [Zithromax Z-pack] 250 mg PO DIRECTED #6 tab 08/14/17 predniSONE 20 mg PO BID #10 tab 08/14/17 Allergies Allergy/AdvReac Type Severity Reaction Status Date / Time amoxicillin [Amoxicillin] Allergy Rash/Hives Verified 08/14/17 06:05 Review of Systems ROS Statement: Those systems with pertinent positive or pertinent negative responses have been documented in the HPI. ROS Other: All systems not noted in ROS Statement are negative. Constitutional: Reports: fever Eyes: Denies: eye pain ENT: Denies: ear pain Respiratory: Reports: cough Cardiovascular: Denies: chest pain Endocrine: Denies: fatigue Gastrointestinal: Denies: abdominal pain Genitourinary: Denies: dysuria Musculoskeletal: Denies: back pain Skin: Denies: rash Neurological: Denies: weakness Past Medical History Past Medical History: Diabetes Mellitus, Hyperlipidemia, Hypertension Additional Past Medical History / Comment(s): pt states she is a diet controlled diabetic. dosent check glucose at home., History of Any Multi-Drug Resistant Organisms: None Reported Past Surgical History: Tubal Ligation Past Anesthesia/Blood Transfusion Reactions: No Reported Reaction Past Psychological History: Anxiety, Depression, Panic Disorder Smoking Status: Former smoker Past Alcohol Use History: None Reported Past Drug Use History: None Reported - Past Family History Mother Additional Family Medical History / Comment(s): suicide General Exam Limitations: no limitations General appearance: alert, in no apparent distress Head exam: Present: atraumatic Eye exam: Present: normal appearance, PERRL ENT exam: Present: normal oropharynx Neck exam: Present: normal inspection Respiratory exam: Present: normal lung sounds bilaterally. Absent: chest wall tenderness Cardiovascular Exam: Present: regular rate, normal rhythm GI/Abdominal exam: Present: soft. Absent: tenderness Extremities exam: Present: normal inspection. Absent: pedal edema, calf tenderness Neurological exam: Present: alert Psychiatric exam: Present: normal affect, normal mood Skin exam: Present: normal color Course Vital Signs 08/14/17 06:01 Temperature 97.3 F L Pulse Rate 98 Respiratory 20 Rate Blood Pressure 155/76 O2 Sat by Pulse 95 Oximetry Medical Decision Making - Medical Decision Making Patient reevaluated and resting comfortably in bed. Patient states she does have inhalers at home that she can take however has not been using them recently. Patient is encouraged to do so. Patient does request antibiotics and is comfortable with discharge. - Radiology Data Interpreted by me: Chest x-ray shows very slight increased markings near the right middle lobe. Disposition Clinical Impression: Bronchitis, Sinusitis Disposition: HOME SELF-CARE Condition: Stable Instructions: Sinusitis (ED), Acute Bronchitis (ED), COPD (Chronic Obstructive Pulmonary Disease) (ED) Additional Instructions: Please follow-up with primary care physician in the next day or 2 for recheck. Return for difficulty in breathing, fevers, pain, worsening symptoms or other concerns. Please use your inhalers for the next few days. Prescriptions: Azithromycin [Zithromax Z-pack] 250 mg PO DIRECTED #6 tab predniSONE 20 mg PO BID #10 tab Referrals: Martinez Saavedra MD [Primary Care Provider] - 1-2 days Time of Disposition: 06:45
--- NOTE | 2017-08-14 06:51 | XR ---
EXAM: XR Chest, 2 Views CLINICAL HISTORY: Cough TECHNIQUE: Frontal and lateral views of the chest. COMPARISON: Chest x-ray dated 07/07/2017 FINDINGS: Lungs: Unremarkable. No consolidation. Pleural space: Unremarkable. No pneumothorax. Heart: Unremarkable. No cardiomegaly. Mediastinum: Unremarkable. Bones/joints: Unremarkable. IMPRESSION: Normal chest x-rays.
== END 2017-08-14 06:53 | disposition home or self-care (01) ==
LOC: EC 05:53
DX: J40 Bronchitis, not specified as acute or chronic (principal); J32.9 Chronic sinusitis, unspecified; I10 Essential (primary) hypertension; E78.5 Hyperlipidemia, unspecified; F41.9 Anxiety disorder, unspecified; Z88.0 Allergy status to penicillin; Z79.899 Other long term (current) drug therapy; Z87.891 Personal history of nicotine dependence
CPT/HCPCS: 71046; 99283

== ENCOUNTER 2017-11-05 22:31 | Emergency (ER) | payer MEDICARE, OTHER ==
[2017-11-05 22:35] VITALS: RESP 16
[2017-11-05] MEDS ORDERED: SODIUM CHLORIDE 0.9% 1,000 ML IV STA (23:12)
[2017-11-05] MEDS ORDERED: hydrALAZINE HCL 20 MG/ML 1 ML VIAL IVP STA (23:13)
[2017-11-05 23:39] LABS: Basophils # (A) 0.1 k/uL (0-0.2); Basophils % (A) 1 %; Eosinophils # (A) 0.2 k/uL (0-0.7); Eosinophils % (A) 3 %; HCT 35.4 % (34.0-46.0); HGB 12.1 gm/dL (11.4-16.0); Lymphocytes # (A) 2.2 k/uL (1.0-4.8); Lymphocytes % (A) 28 %; MCH 30.1 pg (25.0-35.0); MCV 88.4 fL (80.0-100.0); Mean Platelet Volume 7.9; Monocytes # (A) 0.5 k/uL (0-1.0); Monocytes % (A) 6 %; Neutrophils # (A) 4.9 k/uL (1.3-7.7); Neutrophils % (A) 61 %; Platelet Count 204 k/uL (150-450); RBC 4.01 m/uL (3.80-5.40); RDW 13.6 % (11.5-15.5); WBC 8.1 k/uL (3.8-10.6)
[2017-11-05 23:49] LABS: ALT 42 U/L (9-52); AST 36 U/L (14-36); Albumin 3.9 g/dL (3.5-5.0); Alkaline Phosphatase 95 U/L (38-126); Anion Gap 9 mmol/L; Blood Urea Nitrogen 18 mg/dL (7-17); Calcium 9.5 mg/dL (8.4-10.2); Carbon Dioxide 30 mmol/L (22-30); Chloride 101 mmol/L (98-107); Glucose 95 mg/dL (74-99); Magnesium 1.5 mg/dL (1.6-2.3); Potassium 4.1 mmol/L (3.5-5.1); Sodium 140 mmol/L (137-145); Total Bilirubin 0.4 mg/dL (0.2-1.3); Total Protein 6.9 g/dL (6.3-8.2)
[2017-11-05 23:51] LABS: Partial Thromboplastin Time 22.5 sec (22.0-30.0); Prothrombin Time 9.5 sec (9.0-12.0)
[2017-11-06] LABS: Creatine Kinase 36 U/L (30-135)
[2017-11-06 00:13] LABS: Creatine Kinase MB 0.5 ng/mL (0.0-2.4); Troponin I <0.012 ng/mL (0.000-0.034)
--- NOTE | 2017-11-06 00:54 | ED ---
Recheck HPI - General Chief Complaint: Recheck/Abnormal Lab/Rx Stated Complaint: High Blood Pressure Time Seen by Provider: 11/05/17 23:04 Source: patient Mode of arrival: ambulatory Limitations: no limitations - History of Present Illness Initial Comments: [age] years O female comes in with the elevated blood pressure she said maybe now for almost 24 hours. She denies any headaches no chest pain or shortness of breath no abdominal pain no frequency urgency dysuria. - Related Data Home Medications Medication Instructions Recorded Confirmed Albuterol Sulfate [Ventolin HFA] 1 - 2 puff INHALATION RT-Q6H PRN 12/31/1311/05 Cholecalciferol [Vitamin D3] 1,000 unit PO DAILY 12/31/13 11/05/17 Atorvastatin [Lipitor] 40 mg PO HS 05/07/17 11/05/17 Cyanocobalamin [Vitamin B-12] 500 mcg PO DAILY 06/18/17 11/05/17 Loratadine [Claritin] 10 mg PO DAILY 07/07/17 11/05/17 Losartan [Cozaar] 50 mg PO DAILY@1500 07/07/17 11/05/17 [place]-3/Dha/Epa/Fish Oil [Fish Oil 1 cap PO DAILY 08/14/17 11/05/17 500 mg Softgel] Potassium Chloride [Klor-Con 10] 10 meq PO DAILY@1500 08/14/17 11/05/17 cloNIDine HCL [Catapres] 0.1 mg PO TID 08/14/17 11/05/17 Pediatric Multivitamin No.30 1 tab PO DAILY 11/05/17 11/05/17 [Multivitamin Children's Gummies] Previous Rx's Medication Instructions Recorded Aspirin 81 mg PO DAILY #30 chew 07/09/17 Hydrochlorothiazide [Hydrodiuril] 50 mg PO DAILY #30 tab 07/09/17 Allergies Allergy/AdvReac Type Severity Reaction Status Date / Time amoxicillin [Amoxicillin] Allergy Rash/Hives Verified 11/05/17 22:48 Review of Systems ROS Statement: Those systems with pertinent positive or pertinent negative responses have been documented in the HPI. ROS Other: All systems not noted in ROS Statement are negative. Past Medical History Past Medical History: Diabetes Mellitus, Hyperlipidemia, Hypertension Additional Past Medical History / Comment(s): pt states she is a diet controlled diabetic. doesn't check glucose at home. History of Any Multi-Drug Resistant Organisms: None Reported Past Surgical History: Tubal Ligation Past Anesthesia/Blood Transfusion Reactions: No Reported Reaction Past Psychological History: Anxiety, Depression, Panic Disorder Smoking Status: Former smoker Past Alcohol Use History: None Reported Past Drug Use History: None Reported - Past Family History Mother Additional Family Medical History / Comment(s): suicide General Exam - General Exam Comments Initial Comments: General: The patient is awake and alert, in no distress, and does not appear acutely ill. Slightly nervous Skin: Skin is warm and dry and no rashes or lesions are noted. Eye: Pupils are equal, round and reactive to light, extra-ocular movements are intact; there is normal conjunctiva bilaterally. Ears, nose, mouth and throat: There are moist mucous membranes and no oral lesions. Neck: The neck is supple, there is no tenderness or JVD. Cardiovascular: There is a regular rate and rhythm. No murmur, rub or gallop is appreciated. Respiratory: To auscultation bilateral, decreased breath sounds bilateral Gastrointestinal: Soft, non-distended, non-tender abdomen without masses or organomegaly noted. There is no rebound or guarding present. Bowel sounds are unremarkable. Back: There is no tenderness to palpation in the midline. There is no obvious deformity. Musculoskeletal: Normal ROM, no tenderness, There is no pedal edema. There is no calf tenderness or swelling. No cords were appreciated. Neurological: CN II-XII intact, Cranial nerves III through XII are intact. There are no obvious motor or sensory deficits. Coordination appears grossly intact. Speech is normal. Psychiatric: Cooperative, appropriate mood & affect, normal judgment. Limitations: no limitations Course Vital Signs 11/05/17 11/05/17 11/06/17 22:32 22:58 00:12 Temperature 97.6 F 98.2 F Pulse Rate 108 H 84 73 Respiratory 16 16 16 Rate Blood Pressure 196/85 208/87 120/57 O2 Sat by Pulse 91 L 93 L 92 L Oximetry 11/06/17 00:14 Temperature 97.0 F L Pulse Rate 73 Respiratory 16 Rate Blood Pressure 129/59 O2 Sat by Pulse 94 L Oximetry EKG is a normal sinus rhythm ventricular rate is 73 RI interval is 1:30 QRS duration is 90 QT/QTc is 42/442 review cc EKG does not reveal any ST elevation or ST depression. Labs were reviewed to make sure there is no and organ damage considering elevated blood pressure CBC, comp his metabolic panel, troponin, EKG shows EKG are unremarkable I discussed his labs with the patient is comfortable going home and she will follow-up with family doctor Medical Decision Making - Lab Data Result diagrams: 11/05/17 23:25 11/05/17 23:25 Lab Results 11/05/17 11/05/17 11/05/17 Range/Units 23:25 23:25 23:25 WBC 8.1 (3.8-10.6) k/uL RBC 4.01 (3.80-5.40) m/uL Hgb 12.1 (11.4-16.0) gm/dL Hct 35.4 (34.0-46.0) % MCV 88.4 (80.0-100.0) fL MCH 30.1 (25.0-35.0) pg MCHC 34.0 (31.0-37.0) g/dL RDW 13.6 (11.5-15.5) % Plt Count 204 (150-450) k/uL Neutrophils % 61 % Lymphocytes % 28 % Monocytes % 6 % Eosinophils % 3 % Basophils % 1 % Neutrophils # 4.9 (1.3-7.7) k/uL Lymphocytes # 2.2 (1.0-4.8) k/uL Monocytes # 0.5 (0-1.0) k/uL Eosinophils # 0.2 (0-0.7) k/uL Basophils # 0.1 (0-0.2) k/uL PT (9.0-12.0) sec INR (<1.2) APTT (22.0-30.0) sec Sodium 140 (137-145) mmol/L Potassium 4.1 (3.5-5.1) mmol/L Chloride 101 (98-107) mmol/L Carbon Dioxide 30 (22-30) mmol/L Anion Gap 9 mmol/L BUN 18 H (7-17) mg/dL Creatinine 0.70 (0.52-1.04) mg/dL Est GFR (CKD-EPI)AfAm >90 (>60 ml/min/1.73 sqM) Est GFR (CKD-EPI)NonAf >90 (>60 ml/min/1.73 sqM) Glucose 95 (74-99) mg/dL Calcium 9.5 (8.4-10.2) mg/dL Magnesium 1.5 L (1.6-2.3) mg/dL Total Bilirubin 0.4 (0.2-1.3) mg/dL AST 36 (14-36) U/L ALT 42 (9-52) U/L Alkaline Phosphatase 95 (38-126) U/L Total Creatine Kinase 36 (30-135) U/L CK-MB (CK-2) 0.5 (0.0-2.4) ng/mL CK-MB (CK-2) Rel Index 1.4 Troponin I <0.012 (0.000-0.034) ng/mL Total Protein 6.9 (6.3-8.2) g/dL Albumin 3.9 (3.5-5.0) g/dL 11/05/17 Range/Units 23:25 WBC (3.8-10.6) k/uL RBC (3.80-5.40) m/uL Hgb (11.4-16.0) gm/dL Hct (34.0-46.0) % MCV (80.0-100.0) fL MCH (25.0-35.0) pg MCHC (31.0-37.0) g/dL RDW (11.5-15.5) % Plt Count (150-450) k/uL Neutrophils % % Lymphocytes % % Monocytes % % Eosinophils % % Basophils % % Neutrophils # (1.3-7.7) k/uL Lymphocytes # (1.0-4.8) k/uL Monocytes # (0-1.0) k/uL Eosinophils # (0-0.7) k/uL Basophils # (0-0.2) k/uL PT 9.5 (9.0-12.0) sec INR 1.0 (<1.2) APTT 22.5 (22.0-30.0) sec Sodium (137-145) mmol/L Potassium (3.5-5.1) mmol/L Chloride (98-107) mmol/L Carbon Dioxide (22-30) mmol/L Anion Gap mmol/L BUN (7-17) mg/dL Creatinine (0.52-1.04) mg/dL Est GFR (CKD-EPI)AfAm (>60 ml/min/1.73 sqM) Est GFR (CKD-EPI)NonAf (>60 ml/min/1.73 sqM) Glucose (74-99) mg/dL Calcium (8.4-10.2) mg/dL Magnesium (1.6-2.3) mg/dL Total Bilirubin (0.2-1.3) mg/dL AST (14-36) U/L ALT (9-52) U/L Alkaline Phosphatase (38-126) U/L Total Creatine Kinase (30-135) U/L CK-MB (CK-2) (0.0-2.4) ng/mL CK-MB (CK-2) Rel Index Troponin I (0.000-0.034) ng/mL Total Protein (6.3-8.2) g/dL Albumin (3.5-5.0) g/dL Disposition Clinical Impression: Hypertension Disposition: HOME SELF-CARE Condition: Fair Instructions: Hypertension (ED) Is patient prescribed a controlled substance at d/c from ED?: No Referrals: Martinez Saavedra MD [Primary Care Provider] - 1-2 days
--- NOTE | 2017-11-06 01:06 | XR ---
EXAMINATION TYPE: XR chest 2V DATE OF EXAM: 11/06/2017 COMPARISON: 08/14/2017 HISTORY: Hypertension. Chest pain TECHNIQUE: Frontal and lateral views of the chest are obtained. FINDINGS: Thoracic aorta is atheromatous. Heart size is normal. There is some coarsening of the lung markings. Costophrenic angles are clear. There is no gross heart failure. IMPRESSION: Lung markings are increased slightly compared to last exam and could relate to mild inte rstitial pneumonia. No gross heart failure.
[2017-11-06 01:08] VITALS: BP 113/53; PULSE 77; TEMP 98
== END 2017-11-06 01:07 | disposition home or self-care (01) ==
LOC: EC 22:31
DX: I10 Essential (primary) hypertension (principal); E78.5 Hyperlipidemia, unspecified; F41.9 Anxiety disorder, unspecified; Z87.891 Personal history of nicotine dependence; Z79.899 Other long term (current) drug therapy; Z88.0 Allergy status to penicillin
CPT/HCPCS: 36415; 71046; 80053; 82550; 82553; 83735; 84484; 85025; 85610; 85730; 93005; 96360; 99284

== ENCOUNTER 2018-03-16 02:03 | Emergency (ER) | payer MEDICARE, OTHER ==
[2018-03-16 02:09] VITALS: BP 149/76; PULSE 75
--- NOTE | 2018-03-16 02:38 | ED ---
General Adult HPI - General Chief complaint: Recheck/Abnormal Lab/Rx Stated complaint: Hypertension Time Seen by Provider: 03/16/18 02:14 Source: EMS Mode of arrival: EMS Limitations: no limitations - History of Present Illness Initial comments: This patient is 67-year-old woman who presents to be evaluated because she has elevated blood pressure. The patient states that she has been experiencing some moderate severity generalized headache. She states that this is how she usually feels when her blood pressure has been elevated. Patient denies neurologic symptoms. Denies chest pain, dyspnea, nausea or vomiting, abdominal pain or other symptoms. -: hour(s) Location: head Radiation: non-radiation Consistency: constant Improves with: none Worsens with: none Associated Symptoms: denies other symptoms - Related Data Home Medications Medication Instructions Recorded Confirmed Albuterol Sulfate [Ventolin HFA] 1 - 2 puff INHALATION RT-Q6H PRN 12/31/1311/05 Cholecalciferol [Vitamin D3] 1,000 unit PO DAILY 12/31/13 11/05/17 Atorvastatin [Lipitor] 40 mg PO HS 05/07/17 11/05/17 Cyanocobalamin [Vitamin B-12] 500 mcg PO DAILY 06/18/17 11/05/17 Loratadine [Claritin] 10 mg PO DAILY 07/07/17 11/05/17 Losartan [Cozaar] 50 mg PO DAILY@1500 07/07/17 11/05/17 [place]-3/Dha/Epa/Fish Oil [Fish Oil 1 cap PO DAILY 08/14/17 11/05/17 500 mg Softgel] Potassium Chloride [Klor-Con 10] 10 meq PO DAILY@1500 08/14/17 11/05/17 cloNIDine HCL [Catapres] 0.1 mg PO TID 08/14/17 11/05/17 Pediatric Multivitamin No.30 1 tab PO DAILY 11/05/17 11/05/17 [Multivitamin Children's Gummies] Previous Rx's Medication Instructions Recorded Aspirin 81 mg PO DAILY #30 chew 07/09/17 Hydrochlorothiazide [Hydrodiuril] 50 mg PO DAILY #30 tab 07/09/17 Allergies Allergy/AdvReac Type Severity Reaction Status Date / Time amoxicillin [Amoxicillin] Allergy Rash/Hives Verified 11/05/17 22:48 Review of Systems ROS Statement: Those systems with pertinent positive or pertinent negative responses have been documented in the HPI. ROS Other: All systems not noted in ROS Statement are negative. Constitutional: Denies: fever Respiratory: Denies: cough, dyspnea Cardiovascular: Denies: chest pain, palpitations, edema Gastrointestinal: Denies: abdominal pain, nausea, vomiting Genitourinary: Denies: dysuria Musculoskeletal: Denies: back pain Skin: Denies: rash Neurological: Reports: headache. Denies: weakness, numbness, paresthesias Past Medical History Past Medical History: Diabetes Mellitus, Hyperlipidemia, Hypertension Additional Past Medical History / Comment(s): pt states she is a diet controlled diabetic. doesn't check glucose at home. History of Any Multi-Drug Resistant Organisms: None Reported Past Surgical History: Tubal Ligation Past Anesthesia/Blood Transfusion Reactions: No Reported Reaction Past Psychological History: Anxiety, Depression, Panic Disorder Smoking Status: Former smoker Past Alcohol Use History: None Reported Past Drug Use History: None Reported - Past Family History Mother Additional Family Medical History / Comment(s): suicide General Exam Limitations: no limitations General appearance: alert, in no apparent distress Head exam: Present: atraumatic, normocephalic Eye exam: Present: normal appearance. Absent: scleral icterus, conjunctival injection Respiratory exam: Present: normal lung sounds bilaterally. Absent: respiratory distress, wheezes, rales, rhonchi, stridor Cardiovascular Exam: Present: regular rate, normal rhythm, normal heart sounds. Absent: systolic murmur, diastolic murmur, rubs, gallop GI/Abdominal exam: Present: soft. Absent: distended, tenderness, guarding, rebound, mass Extremities exam: Present: normal inspection, normal capillary refill. Absent: pedal edema, calf tenderness Back exam: Present: normal inspection. Absent: CVA tenderness (R), CVA tenderness (L) Neurological exam: Present: alert. Absent: motor sensory deficit Skin exam: Present: warm, dry, intact, normal color. Absent: rash Course Vital Signs 03/16/18 02:06 Temperature 98.5 F Pulse Rate 75 Blood Pressure 149/76 O2 Sat by Pulse 96 Oximetry EKG Findings - EKG Results: EKG: interpreted by ERMD, sinus rhythm (Heart rate 64 ), normal axis, normal QRS , normal ST/T Medical Decision Making - Lab Data Result diagrams: 03/16/18 02:15 03/16/18 02:15 Lab Results 03/16/18 03/16/18 03/16/18 Range/Units 02:15 02:15 02:15 WBC 9.3 (3.8-10.6) k/uL RBC 4.09 (3.80-5.40) m/uL Hgb 12.3 (11.4-16.0) gm/dL Hct 37.6 (34.0-46.0) % MCV 91.9 (80.0-100.0) fL MCH 30.1 (25.0-35.0) pg MCHC 32.8 (31.0-37.0) g/dL RDW 14.4 (11.5-15.5) % Plt Count 221 (150-450) k/uL Neutrophils % 69 % Lymphocytes % 22 % Monocytes % 5 % Eosinophils % 2 % Basophils % 1 % Neutrophils # 6.4 (1.3-7.7) k/uL Lymphocytes # 2.1 (1.0-4.8) k/uL Monocytes # 0.5 (0-1.0) k/uL Eosinophils # 0.2 (0-0.7) k/uL Basophils # 0.1 (0-0.2) k/uL Sodium 142 (137-145) mmol/L Potassium 4.0 (3.5-5.1) mmol/L Chloride 102 (98-107) mmol/L Carbon Dioxide 31 H (22-30) mmol/L Anion Gap 9 mmol/L BUN 16 (7-17) mg/dL Creatinine 0.70 (0.52-1.04) mg/dL Est GFR (CKD-EPI)AfAm >90 (>60 ml/min/1.73 sqM) Est GFR (CKD-EPI)NonAf >90 (>60 ml/min/1.73 sqM) Glucose 101 H (74-99) mg/dL Calcium 9.6 (8.4-10.2) mg/dL Magnesium 1.6 (1.6-2.3) mg/dL Total Bilirubin 0.5 (0.2-1.3) mg/dL AST 40 H (14-36) U/L ALT 50 (9-52) U/L Alkaline Phosphatase 90 (38-126) U/L Total Creatine Kinase 55 (30-135) U/L CK-MB (CK-2) 0.9 (0.0-2.4) ng/mL CK-MB (CK-2) Rel Index 1.6 Troponin I <0.012 (0.000-0.034) ng/mL NT-Pro-B Natriuret Pep pg/mL Total Protein 7.2 (6.3-8.2) g/dL Albumin 3.9 (3.5-5.0) g/dL 03/16/18 Range/Units 02:15 WBC (3.8-10.6) k/uL RBC (3.80-5.40) m/uL Hgb (11.4-16.0) gm/dL Hct (34.0-46.0) % MCV (80.0-100.0) fL MCH (25.0-35.0) pg MCHC (31.0-37.0) g/dL RDW (11.5-15.5) % Plt Count (150-450) k/uL Neutrophils % % Lymphocytes % % Monocytes % % Eosinophils % % Basophils % % Neutrophils # (1.3-7.7) k/uL Lymphocytes # (1.0-4.8) k/uL Monocytes # (0-1.0) k/uL Eosinophils # (0-0.7) k/uL Basophils # (0-0.2) k/uL Sodium (137-145) mmol/L Potassium (3.5-5.1) mmol/L Chloride (98-107) mmol/L Carbon Dioxide (22-30) mmol/L Anion Gap mmol/L BUN (7-17) mg/dL Creatinine (0.52-1.04) mg/dL Est GFR (CKD-EPI)AfAm (>60 ml/min/1.73 sqM) Est GFR (CKD-EPI)NonAf (>60 ml/min/1.73 sqM) Glucose (74-99) mg/dL Calcium (8.4-10.2) mg/dL Magnesium (1.6-2.3) mg/dL Total Bilirubin (0.2-1.3) mg/dL AST (14-36) U/L ALT (9-52) U/L Alkaline Phosphatase (38-126) U/L Total Creatine Kinase (30-135) U/L CK-MB (CK-2) (0.0-2.4) ng/mL CK-MB (CK-2) Rel Index Troponin I (0.000-0.034) ng/mL NT-Pro-B Natriuret Pep 139 pg/mL Total Protein (6.3-8.2) g/dL Albumin (3.5-5.0) g/dL Disposition Clinical Impression: Hypertension Disposition: HOME SELF-CARE Condition: Good Instructions: Hypertension (ED) Is patient prescribed a controlled substance at d/c from ED?: No Referrals: Martinez Saavedra MD [Primary Care Provider] - 1-2 days
[2018-03-16 03:26] LABS: Basophils # (A) 0.1 k/uL (0-0.2); Basophils % (A) 1 %; Eosinophils # (A) 0.2 k/uL (0-0.7); Eosinophils % (A) 2 %; HCT 37.6 % (34.0-46.0); HGB 12.3 gm/dL (11.4-16.0); Lymphocytes # (A) 2.1 k/uL (1.0-4.8); Lymphocytes % (A) 22 %; MCH 30.1 pg (25.0-35.0); MCHC 32.8 g/dL (31.0-37.0); MCV 91.9 fL (80.0-100.0); Mean Platelet Volume 7.7; Monocytes # (A) 0.5 k/uL (0-1.0); Monocytes % (A) 5 %; Neutrophils # (A) 6.4 k/uL (1.3-7.7); Neutrophils % (A) 69 %; Platelet Count 221 k/uL (150-450); RBC 4.09 m/uL (3.80-5.40); RDW 14.4 % (11.5-15.5); WBC 9.3 k/uL (3.8-10.6)
--- NOTE | 2018-03-16 03:32 | XR ---
EXAMINATION TYPE: XR chest 1V portable DATE OF EXAM: 03/16/2018 COMPARISON: 11/06/2017 HISTORY: Hypertension TECHNIQUE: Single frontal view of the chest is obtained. FINDINGS: There is relative poor inspiration. There is no heart failure. Lungs are clear of consolid ation. Heart and mediastinum appear normal. IMPRESSION: No active cardiopulmonary disease. There is clearing of interstitial pulmonary infiltrat es in the lower lobes compared to last exam..
[2018-03-16 03:34] LABS: ALT 50 U/L (9-52); AST 40 U/L (14-36); Albumin 3.9 g/dL (3.5-5.0); Alkaline Phosphatase 90 U/L (38-126); Anion Gap 9 mmol/L; Blood Urea Nitrogen 16 mg/dL (7-17); Calcium 9.6 mg/dL (8.4-10.2); Carbon Dioxide 31 mmol/L (22-30); Chloride 102 mmol/L (98-107); Glucose 101 mg/dL (74-99); Magnesium 1.6 mg/dL (1.6-2.3); Sodium 142 mmol/L (137-145); Total Bilirubin 0.5 mg/dL (0.2-1.3); Total Protein 7.2 g/dL (6.3-8.2)
[2018-03-16 03:37] LABS: Creatine Kinase 55 U/L (30-135)
[2018-03-16 03:50] LABS: Creatine Kinase MB 0.9 ng/mL (0.0-2.4); Troponin I <0.012 ng/mL (0.000-0.034)
[2018-03-16 04:27] VITALS: TEMP 98.6
== END 2018-03-16 04:16 | disposition home or self-care (01) ==
LOC: EC 02:03
DX: I10 Essential (primary) hypertension (principal); E78.5 Hyperlipidemia, unspecified; Z87.891 Personal history of nicotine dependence; Z88.0 Allergy status to penicillin; Z79.899 Other long term (current) drug therapy
CPT/HCPCS: 36415; 71045; 80053; 82550; 82553; 83735; 83880; 84484; 85025; 93005; 99284

== ENCOUNTER 2019-02-17 00:26 | Emergency (ER) | payer MEDICARE, OTHER ==
[2019-02-17] MEDS ORDERED: METOCLOPRAMIDE 5 MG/ML 2 ML VIAL IVP STA (01:50)
[2019-02-17] MEDS ORDERED: SODIUM CHLORIDE 0.9% 500 ML 500 ML IV STA (01:50)
[2019-02-17] MEDS ORDERED: diphenhydrAMINE 50 MG/ML 1 ML VIAL IVP STA (01:50)
[2019-02-17 02:33] LABS: Basophils % (A) 0 %; Eosinophils # (A) 0.1 k/uL (0-0.7); Eosinophils % (A) 0 %; HCT 37.4 % (34.0-46.0); Lymphocytes # (A) 0.6 k/uL (1.0-4.8); Lymphocytes % (A) 4 %; MCH 30.6 pg (25.0-35.0); MCHC 34.8 g/dL (31.0-37.0); MCV 88.1 fL (80.0-100.0); Mean Platelet Volume 6.8; Monocytes # (A) 0.4 k/uL (0-1.0); Monocytes % (A) 3 %; Neutrophils % (A) 91 %; Platelet Count 225 k/uL (150-450); RBC 4.24 m/uL (3.80-5.40); RDW 13.8 % (11.5-15.5); WBC 14.2 k/uL (3.8-10.6)
[2019-02-17 02:36] LABS: ALT 43 U/L (9-52); AST 37 U/L (14-36); African American GFR (CKD) >90 (>60 ml/min/1.73 sqM); Albumin 4.2 g/dL (3.5-5.0); Alkaline Phosphatase 96 U/L (38-126); Amylase 40 U/L (30-110); Anion Gap 13 mmol/L; Blood Urea Nitrogen 14 mg/dL (7-17); Calcium 9.5 mg/dL (8.4-10.2); Carbon Dioxide 29 mmol/L (22-30); Chloride 99 mmol/L (98-107); Glucose 142 mg/dL (74-99); Potassium 3.5 mmol/L (3.5-5.1); Sodium 141 mmol/L (137-145); Total Bilirubin 0.6 mg/dL (0.2-1.3); Total Protein 7.5 g/dL (6.3-8.2)
[2019-02-17 03:00] LABS: Appearance,Urine Clear (Clear); Bilirubin,Urine Negative (Negative); Blood,Urine Negative (Negative); Color,Urine Yellow; Glucose,Urine (UA) Negative (Negative); Hyaline Casts,Urine 3 /lpf (0-2); Ketones,Urine Negative (Negative); Leukocyte Esterase,Urine Large (Negative); Mucus,Urine Rare /hpf; Nitrite,Urine Negative (Negative); PH, Urine 5.5 (5.0-8.0); Protein,Urine Negative (Negative); RBC,Urine 2 /hpf (0-5); Specific Gravity,Urine 1.017 (1.001-1.035); Squamous Epithelial Cell,Urine <1 /hpf (0-4); Urobilinogen,Urine <2.0 mg/dL (<2.0); WBC,Urine 28 /hpf (0-5)
[2019-02-17] MEDS ORDERED: SULFAMETHOX-TMP 800-160MG 1 EACH TAB PO STA (03:37)
[2019-02-17] MEDS ORDERED: Acetaminophen-Codeine 300-30mg TAB PO STA (04:22)
[2019-02-17] MEDS ORDERED: KETOROLAC 30 MG/ML 1 ML VIAL IVP STA (04:22)
--- NOTE | 2019-02-17 06:08 | ED ---
Nausea/Vomiting/Diarrhea HPI - General Chief complaint: Nausea/Vomiting/Diarrhea Stated complaint: nausea Time Seen by Provider: 02/17/19 00:40 Source: patient, EMS Mode of arrival: EMS Limitations: no limitations - History of Present Illness Initial comments: This patient is 68-year-old woman presenting to be evaluated for nausea and vomiting that started this evening. Patient did have recent flu shot and thought that this may be related area no abdominal pain. No change in bowel movements. MD complaint: nausea, vomiting -: hour(s) Description of Vomiting: food contents Associated Abdominal Pain: No Radiation: none Improves with: none Worsens with: none Associated Symptoms: nausea/vomiting - Related Data Home Medications Medication Instructions Recorded Confirmed Albuterol Sulfate [Ventolin HFA] 1 - 2 puff INHALATION RT-Q6H PRN 12/31/13 11/05/17 Cholecalciferol [Vitamin D3 (25 1,000 unit PO DAILY 12/31/13 11/05/17 Mcg = 1000 Iu)] Atorvastatin [Lipitor] 40 mg PO HS 05/07/17 11/05/17 Cyanocobalamin [Vitamin B-12] 500 mcg PO DAILY 06/18/17 11/05/17 Loratadine [Claritin] 10 mg PO DAILY 07/07/17 11/05/17 Losartan [Cozaar] 50 mg PO DAILY@1500 07/07/17 11/05/17 [place]-3/Dha/Epa/Fish Oil [Fish Oil 1 cap PO DAILY 08/14/17 11/05/17 500 mg Softgel] Potassium Chloride [Klor-Con 10] 10 meq PO DAILY@1500 08/14/17 11/05/17 cloNIDine HCL [Catapres] 0.1 mg PO TID 08/14/17 11/05/17 Pediatric Multivitamin No.30 1 tab PO DAILY 11/05/17 11/05/17 [Multivitamin Children's Gummies] Previous Rx's Medication Instructions Recorded Aspirin 81 mg PO DAILY #30 chew 07/09/17 Hydrochlorothiazide [Hydrodiuril] 50 mg PO DAILY #30 tab 07/09/17 Sulfamethox-Tmp 800-160Mg [Bactrim 1 each PO Q12HR #6 tab 02/17/19 Ds] Allergies Allergy/AdvReac Type Severity Reaction Status Date / Time amoxicillin [Amoxicillin] Allergy Rash/Hives Verified 11/05/17 22:48 Review of Systems ROS Statement: Those systems with pertinent positive or pertinent negative responses have been documented in the HPI. ROS Other: All systems not noted in ROS Statement are negative. Constitutional: Denies: fever Respiratory: Denies: cough, dyspnea Cardiovascular: Denies: chest pain, palpitations Gastrointestinal: Reports: nausea, vomiting. Denies: abdominal pain, diarrhea, constipation, hematemesis, melena, hematochezia Genitourinary: Denies: dysuria, hematuria Musculoskeletal: Denies: back pain Skin: Denies: rash Neurological: Denies: headache Past Medical History Past Medical History: COPD, Diabetes Mellitus, Hyperlipidemia, Hypertension Additional Past Medical History / Comment(s): pt states she is a diet controlled diabetic. doesn't check glucose at home. History of Any Multi-Drug Resistant Organisms: None Reported Past Surgical History: Tubal Ligation Past Anesthesia/Blood Transfusion Reactions: No Reported Reaction Past Psychological History: Anxiety, Depression, Panic Disorder Smoking Status: Former smoker Past Alcohol Use History: None Reported Past Drug Use History: None Reported - Past Family History Mother Additional Family Medical History / Comment(s): suicide General Exam Limitations: no limitations General appearance: alert, in no apparent distress Head exam: Present: atraumatic, normocephalic Eye exam: Present: normal appearance. Absent: scleral icterus, conjunctival injection Neck exam: Present: normal inspection Respiratory exam: Present: normal lung sounds bilaterally. Absent: respiratory distress, wheezes, rales, rhonchi, stridor Cardiovascular Exam: Present: regular rate, normal rhythm, normal heart sounds GI/Abdominal exam: Present: soft. Absent: distended, tenderness, guarding, rebound, rigid, mass Extremities exam: Present: normal inspection, normal capillary refill. Absent: pedal edema, calf tenderness Back exam: Present: normal inspection. Absent: CVA tenderness (R), CVA tenderness (L) Neurological exam: Present: alert Skin exam: Present: warm, dry, intact, normal color. Absent: rash Course Vital Signs 02/17/19 02/17/19 00:28 06:24 Temperature 98.8 F 98.0 F Pulse Rate 97 73 Respiratory 18 16 Rate Blood Pressure 178/81 128/62 O2 Sat by Pulse 95 98 Oximetry Medical Decision Making - Lab Data Result diagrams: 02/17/19 02:16 02/17/19 02:16 Lab Results 02/17/19 02/17/19 02/17/19 Range/Units 02:16 02:16 02:45 WBC 14.2 H (3.8-10.6) k/uL RBC 4.24 (3.80-5.40) m/uL Hgb 13.0 (11.4-16.0) gm/dL Hct 37.4 (34.0-46.0) % MCV 88.1 (80.0-100.0) fL MCH 30.6 (25.0-35.0) pg MCHC 34.8 (31.0-37.0) g/dL RDW 13.8 (11.5-15.5) % Plt Count 225 (150-450) k/uL Neutrophils % 91 % Lymphocytes % 4 % Monocytes % 3 % Eosinophils % 0 % Basophils % 0 % Neutrophils # 13.0 H (1.3-7.7) k/uL Lymphocytes # 0.6 L (1.0-4.8) k/uL Monocytes # 0.4 (0-1.0) k/uL Eosinophils # 0.1 (0-0.7) k/uL Basophils # 0.0 (0-0.2) k/uL Sodium 141 (137-145) mmol/L Potassium 3.5 (3.5-5.1) mmol/L Chloride 99 (98-107) mmol/L Carbon Dioxide 29 (22-30) mmol/L Anion Gap 13 mmol/L BUN 14 (7-17) mg/dL Creatinine 0.79 (0.52-1.04) mg/dL Est GFR (CKD-EPI)AfAm >90 (>60 ml/min/1.73 sqM) Est GFR (CKD-EPI)NonAf 79 (>60 ml/min/1.73 sqM) Glucose 142 H (74-99) mg/dL Calcium 9.5 (8.4-10.2) mg/dL Total Bilirubin 0.6 (0.2-1.3) mg/dL AST 37 H (14-36) U/L ALT 43 (9-52) U/L Alkaline Phosphatase 96 (38-126) U/L Total Protein 7.5 (6.3-8.2) g/dL Albumin 4.2 (3.5-5.0) g/dL Amylase 40 (30-110) U/L Lipase 19 L (23-300) U/L Urine Color Yellow Urine Appearance Clear (Clear) Urine pH 5.5 (5.0-8.0) Ur Specific [place] 1.017 (1.001-1.035) Urine Protein Negative (Negative) Urine Glucose (UA) Negative (Negative) Urine Ketones Negative (Negative) Urine Blood Negative (Negative) Urine Nitrite Negative (Negative) Urine Bilirubin Negative (Negative) Urine Urobilinogen <2.0 (<2.0) mg/dL Ur Leukocyte Esterase Large H (Negative) Urine RBC 2 (0-5) /hpf Urine WBC 28 H (0-5) /hpf Ur Squamous Epith Cells <1 (0-4) /hpf Hyaline Casts 3 H (0-2) /lpf Urine Mucus Rare H (None) /hpf Disposition Clinical Impression: Vomiting, Urinary tract infection Disposition: HOME SELF-CARE Condition: Good Instructions (If sedation given, give patient instructions): Urinary Tract Infection in Women (ED), Acute Nausea and Vomiting (ED) Prescriptions: Sulfamethox-Tmp 800-160Mg [Bactrim Ds] 1 each PO Q12HR #6 tab Is patient prescribed a controlled substance at d/c from ED?: No Referrals: Martinez Saavedra MD [Primary Care Provider] - 1-2 days
[2019-02-17 06:25] VITALS: BP 128/62; PULSE 73; RESP 16; TEMP 98
== END 2019-02-17 06:35 | disposition home or self-care (01) ==
LOC: EC 00:26
DX: N39.0 Urinary tract infection, site not specified (principal); R11.10 Vomiting, unspecified; J44.9 Chronic obstructive pulmonary disease, unspecified; E78.5 Hyperlipidemia, unspecified; E11.9 Type 2 diabetes mellitus without complications; I10 Essential (primary) hypertension; Z79.899 Other long term (current) drug therapy; Z88.0 Allergy status to penicillin; Z87.891 Personal history of nicotine dependence
CPT/HCPCS: 36415; 80053; 82150; 83690; 85025; 81001; 99284; 96374; 96375 ×2; 96361; J1200; J2765; J1885

== ENCOUNTER 2019-05-28 16:50 | Emergency (ER) | payer MEDICARE, OTHER ==
[2019-05-28 17:04] VITALS: RESP 18
[2019-05-28] MEDS ORDERED: hydrALAZINE HCL 20 MG/ML 1 ML VIAL IVP STA (17:11)
--- NOTE | 2019-05-28 17:14 | ED ---
General Adult HPI - General Chief complaint: Recheck/Abnormal Lab/Rx Stated complaint: Hypertension Time Seen by Provider: 05/28/19 16:55 Source: patient, EMS, RN notes reviewed, old records reviewed Mode of arrival: EMS Limitations: no limitations - History of Present Illness Initial comments: This is a 68 old female presents emergency department with past medical history significant for hypertension. Patient states she went into see her doctor for well checkup today. Patient states just prior to getting in to see the doctor she got an argument with her ex- and she was very upset when she went to the office and her blood pressures over 200 systolic so they sent her into the hospital to be evaluated. Patient states at the time she felt a little shortness of breath and a little bit of a headache but currently both of symptoms have resolved. Patient denies any chest pain or palpitations. Patient denies any recent fever chills or cough. Patient denies any lightheadedness dizziness or near syncopal episode. Patient denies any abdominal pain. Patient denies any recent vomiting or diarrhea. Patient denies any swelling to the legs more than normal - Related Data Home Medications Medication Instructions Recorded Confirmed Albuterol Sulfate [Ventolin HFA] 1 - 2 puff INHALATION RT-Q6H PRN 12/31/13 11/05/17 Cholecalciferol [Vitamin D3 (25 1,000 unit PO DAILY 12/31/13 11/05/17 Mcg = 1000 Iu)] Atorvastatin [Lipitor] 40 mg PO HS 05/07/17 11/05/17 Cyanocobalamin [Vitamin B-12] 500 mcg PO DAILY 06/18/17 11/05/17 Loratadine [Claritin] 10 mg PO DAILY 07/07/17 11/05/17 Losartan [Cozaar] 50 mg PO DAILY@1500 07/07/17 11/05/17 [place]-3/Dha/Epa/Fish Oil [Fish Oil 1 cap PO DAILY 08/14/17 11/05/17 500 mg Softgel] Potassium Chloride [Klor-Con 10] 10 meq PO DAILY@1500 08/14/17 11/05/17 cloNIDine HCL [Catapres] 0.1 mg PO TID 08/14/17 11/05/17 Pediatric Multivitamin No.30 1 tab PO DAILY 11/05/17 11/05/17 [Multivitamin Children's Gummies] Previous Rx's Medication Instructions Recorded Aspirin 81 mg PO DAILY #30 chew 07/09/17 Hydrochlorothiazide [Hydrodiuril] 50 mg PO DAILY #30 tab 07/09/17 Sulfamethox-Tmp 800-160Mg [Bactrim 1 each PO Q12HR #6 tab 02/17/19 Ds] Allergies Allergy/AdvReac Type Severity Reaction Status Date / Time amoxicillin [Amoxicillin] Allergy Rash/Hives Verified 05/28/19 16:56 Review of Systems ROS Statement: Those systems with pertinent positive or pertinent negative responses have been documented in the HPI. ROS Other: All systems not noted in ROS Statement are negative. Past Medical History Past Medical History: COPD, Diabetes Mellitus, Hyperlipidemia, Hypertension Additional Past Medical History / Comment(s): pt states she is a diet controlled diabetic. doesn't check glucose at home. History of Any Multi-Drug Resistant Organisms: None Reported Past Surgical History: Tubal Ligation Past Anesthesia/Blood Transfusion Reactions: No Reported Reaction Past Psychological History: Anxiety, Depression, Panic Disorder Smoking Status: Former smoker Past Alcohol Use History: None Reported Past Drug Use History: None Reported - Past Family History Mother Additional Family Medical History / Comment(s): suicide General Exam - General Exam Comments Initial Comments: GENERAL: Patient is well-developed and well-nourished. Patient is nontoxic and well- hydrated and is in no acute distress ENT: Neck is soft and supple. No significant lymphadenopathy is noted. Oropharynx is clear. Moist mucous membranes. Neck has full range of motion without eliciting any pain. EYES: The sclera were anicteric and conjunctiva were pink and moist. Extraocular movements were intact and pupils were equal round and reactive to light. Eyel ids were unremarkable. PULMONARY: Unlabored respirations. Good breath sounds bilaterally. No audible rales rhonchi or wheezing was noted. CARDIOVASCULAR: There is a regular rate and rhythm without any murmurs gallops or rubs. ABDOMEN: Soft and nontender with normal bowel sounds. SKIN: Skin is clear with no lesions or rashes and otherwise unremarkable. NEUROLOGIC: Patient is alert and oriented x3. Cranial nerves II through XII are grossly intact. Motor and sensory are also intact. Normal speech, volume and content. Symmetrical smile. MUSCULOSKELETAL: Normal extremities with adequate strength and full range of motion. No lower extremity swelling or edema. No calf tenderness. LYMPHATICS: No significant lymphadenopathy is noted PSYCHIATRIC: Normal psychiatric evaluation. Limitations: no limitations Course Vital Signs 05/28/19 05/28/19 05/28/19 16:56 17:21 17:31 Temperature 96.8 F L Pulse Rate 68 76 69 Respiratory 18 18 18 Rate Blood Pressure 178/93 163/78 135/73 O2 Sat by Pulse 96 Oximetry Medical Decision Making - Medical Decision Making EKG shows normal sinus rhythm at 60 bpm DE interval 234 tresses 84 Q-T intervals 414 QTC is 420. Patient's EKG shows no ST segment elevation or depression or T wave abnormalities are noted. - Lab Data Result diagrams: 05/28/19 17:15 05/28/19 17:15 Lab Results 05/28/19 05/28/19 05/28/19 Range/Units 17:15 17:15 17:15 WBC 7.9 (3.8-10.6) k/uL RBC 4.29 (3.80-5.40) m/uL Hgb 12.9 (11.4-16.0) gm/dL Hct 39.1 (34.0-46.0) % MCV 91.0 (80.0-100.0) fL MCH 30.1 (25.0-35.0) pg MCHC 33.1 (31.0-37.0) g/dL RDW 13.6 (11.5-15.5) % Plt Count 209 (150-450) k/uL Neutrophils % 69 % Lymphocytes % 22 % Monocytes % 5 % Eosinophils % 1 % Basophils % 1 % Neutrophils # 5.5 (1.3-7.7) k/uL Lymphocytes # 1.8 (1.0-4.8) k/uL Monocytes # 0.4 (0-1.0) k/uL Eosinophils # 0.1 (0-0.7) k/uL Basophils # 0.1 (0-0.2) k/uL PT (9.0-12.0) sec INR (<1.2) APTT (22.0-30.0) sec Sodium 140 (137-145) mmol/L Potassium 3.6 (3.5-5.1) mmol/L Chloride 101 (98-107) mmol/L Carbon Dioxide 28 (22-30) mmol/L Anion Gap 11 mmol/L BUN 17 (7-17) mg/dL Creatinine 0.72 (0.52-1.04) mg/dL Est GFR (CKD-EPI)AfAm >90 (>60 ml/min/1.73 sqM) Est GFR (CKD-EPI)NonAf 88 (>60 ml/min/1.73 sqM) Glucose 99 (74-99) mg/dL Calcium 10.1 (8.4-10.2) mg/dL Magnesium 1.4 L (1.6-2.3) mg/dL Total Bilirubin 0.6 (0.2-1.3) mg/dL AST 31 (14-36) U/L ALT 25 (4-34) U/L Alkaline Phosphatase 111 (38-126) U/L Troponin I (0.000-0.034) ng/mL NT-Pro-B Natriuret Pep 166 pg/mL Total Protein 7.7 (6.3-8.2) g/dL Albumin 4.4 (3.5-5.0) g/dL 05/28/19 05/28/19 Range/Units 17:15 17:15 WBC (3.8-10.6) k/uL RBC (3.80-5.40) m/uL Hgb (11.4-16.0) gm/dL Hct (34.0-46.0) % MCV (80.0-100.0) fL MCH (25.0-35.0) pg MCHC (31.0-37.0) g/dL RDW (11.5-15.5) % Plt Count (150-450) k/uL Neutrophils % % Lymphocytes % % Monocytes % % Eosinophils % % Basophils % % Neutrophils # (1.3-7.7) k/uL Lymphocytes # (1.0-4.8) k/uL Monocytes # (0-1.0) k/uL Eosinophils # (0-0.7) k/uL Basophils # (0-0.2) k/uL PT 9.8 (9.0-12.0) sec INR 0.9 (<1.2) APTT 25.4 (22.0-30.0) sec Sodium (137-145) mmol/L Potassium (3.5-5.1) mmol/L Chloride (98-107) mmol/L Carbon Dioxide (22-30) mmol/L Anion Gap mmol/L BUN (7-17) mg/dL Creatinine (0.52-1.04) mg/dL Est GFR (CKD-EPI)AfAm (>60 ml/min/1.73 sqM) Est GFR (CKD-EPI)NonAf (>60 ml/min/1.73 sqM) Glucose (74-99) mg/dL Calcium (8.4-10.2) mg/dL Magnesium (1.6-2.3) mg/dL Total Bilirubin (0.2-1.3) mg/dL AST (14-36) U/L ALT (4-34) U/L Alkaline Phosphatase (38-126) U/L Troponin I <0.012 (0.000-0.034) ng/mL NT-Pro-B Natriuret Pep pg/mL Total Protein (6.3-8.2) g/dL Albumin (3.5-5.0) g/dL Disposition Clinical Impression: Hypertension Disposition: HOME SELF-CARE Condition: Good Instructions (If sedation given, give patient instructions): Hypertension (ED) Is patient prescribed a controlled substance at d/c from ED?: No Referrals: Martinez Saavedra MD [Primary Care Provider] - 1-2 days Time of Disposition: 18:31
[2019-05-28 17:32] LABS: Basophils # (A) 0.1 k/uL (0-0.2); Basophils % (A) 1 %; Eosinophils # (A) 0.1 k/uL (0-0.7); Eosinophils % (A) 1 %; HCT 39.1 % (34.0-46.0); HGB 12.9 gm/dL (11.4-16.0); Lymphocytes # (A) 1.8 k/uL (1.0-4.8); Lymphocytes % (A) 22 %; MCH 30.1 pg (25.0-35.0); MCHC 33.1 g/dL (31.0-37.0); Mean Platelet Volume 8.4; Monocytes # (A) 0.4 k/uL (0-1.0); Monocytes % (A) 5 %; Neutrophils # (A) 5.5 k/uL (1.3-7.7); Neutrophils % (A) 69 %; Platelet Count 209 k/uL (150-450); RBC 4.29 m/uL (3.80-5.40); RDW 13.6 % (11.5-15.5); WBC 7.9 k/uL (3.8-10.6)
[2019-05-28 17:43] LABS: ALT 25 U/L (4-34); AST 31 U/L (14-36); African American GFR (CKD) >90 (>60 ml/min/1.73 sqM); Albumin 4.4 g/dL (3.5-5.0); Alkaline Phosphatase 111 U/L (38-126); Anion Gap 11 mmol/L; Blood Urea Nitrogen 17 mg/dL (7-17); Calcium 10.1 mg/dL (8.4-10.2); Carbon Dioxide 28 mmol/L (22-30); Chloride 101 mmol/L (98-107); Glucose 99 mg/dL (74-99); Magnesium 1.4 mg/dL (1.6-2.3); Non-African American GFR(CKD) 88 (>60 ml/min/1.73 sqM); Potassium 3.6 mmol/L (3.5-5.1); Sodium 140 mmol/L (137-145); Total Bilirubin 0.6 mg/dL (0.2-1.3); Total Protein 7.7 g/dL (6.3-8.2)
[2019-05-28 17:45] LABS: INR 0.9 (<1.2); Partial Thromboplastin Time 25.4 sec (22.0-30.0); Prothrombin Time 9.8 sec (9.0-12.0)
--- NOTE | 2019-05-28 19:06 | XR ---
EXAMINATION: XR chest 2V DATE AND TIME: 05/28/2019 5:39 PM CLINICAL INDICATION: PHH; Chest Pain TECHNIQUE: Departmental protocol COMPARISON: 03/08/2018 FINDINGS: The lungs are clear. The pleural spaces are negative. The cardiac silhouette is not enlarged. The remainder of the mediastinal silhouette is unremarkable. The skeletal structures and soft tissues are negative for acute findings. IMPRESSION: NO ACUTE PROCESS.
[2019-05-28 19:25] VITALS: BP 185/87; PULSE 80; TEMP 97.4
== END 2019-05-28 19:00 | disposition home or self-care (01) ==
LOC: EC 16:50
DX: I10 Essential (primary) hypertension (principal); J44.9 Chronic obstructive pulmonary disease, unspecified; E78.5 Hyperlipidemia, unspecified; E11.9 Type 2 diabetes mellitus without complications; Z79.899 Other long term (current) drug therapy; Z88.0 Allergy status to penicillin; Z87.891 Personal history of nicotine dependence
CPT/HCPCS: 36415; 71046; 80053; 83735; 83880; 84484; 85025; 85610; 85730; 93005; 99284

== ENCOUNTER 2023-04-06 16:23 | Inpatient (IN) | payer MEDICARE, OTHER ==
[2023-04-06] MEDS ORDERED: SODIUM CHLORIDE 0.9% 500 ML 500 ML IV STA (16:43)
[2023-04-06 17:12] LABS: ALT 22 U/L (4-34); AST 28 U/L (14-36); African American GFR (CKD) >90 (>60 ml/min/1.73 sqM); Albumin 4.2 g/dL (3.5-5.0); Alkaline Phosphatase 104 U/L (38-126); Anion Gap 9 mmol/L; Blood Urea Nitrogen 16 mg/dL (7-17); Calcium 9.3 mg/dL (8.4-10.2); Carbon Dioxide 28 mmol/L (22-30); Chloride 101 mmol/L (98-107); Glucose 92 mg/dL (74-99); Non-African American GFR(CKD) 81 (>60 ml/min/1.73 sqM); Potassium 3.9 mmol/L (3.5-5.1); Sodium 138 mmol/L (137-145); Total Bilirubin 0.8 mg/dL (0.2-1.3); Total Protein 7.6 g/dL (6.3-8.2)
[2023-04-06 17:19] LABS: INR 0.9 (<1.2)
[2023-04-06 17:20] LABS: NT-Pro-B-Type Natriuretic Pept 870 pg/mL
[2023-04-06 17:32] LABS: Basophils % (A) 0 %; Eosinophils # (A) 0.1 k/uL (0-0.7); Eosinophils % (A) 1 %; HCT 35.4 % (34.0-46.0); Lymphocytes # (A) 1.2 k/uL (1.0-4.8); Lymphocytes % (A) 15 %; MCH 29.6 pg (25.0-35.0); MCHC 33.8 g/dL (31.0-37.0); MCV 87.7 fL (80.0-100.0); Mean Platelet Volume 9.1; Monocytes # (A) 0.8 k/uL (0-1.0); Monocytes % (A) 9 %; Neutrophils % (A) 72 %; Platelet Count 187 k/uL (150-450); RBC 4.04 m/uL (3.80-5.40); RDW 14.6 % (11.5-15.5); WBC 8.3 k/uL (3.8-10.6)
[2023-04-06] MEDS ORDERED: IBUPROFEN 600 MG TAB PO STA ×2 (17:37→18:34)
[2023-04-06] MEDS ORDERED: ACETAMINOPHEN TAB 500 MG TAB PO STA (17:37)
--- NOTE | 2023-04-06 17:50 | XR ---
EXAMINATION TYPE: XR chest 2V DATE OF EXAM: 04/06/2023 COMPARISON: 05/28/2019 HISTORY: Difficulty breathing TECHNIQUE: Frontal and lateral views of the chest are obtained. FINDINGS: There is moderate cardiomegaly, pulmonary vascular congestion and mild interstitial edema. There is n o pneumothorax or large pleural effusion. The osseous structures are intact. IMPRESSION: Moderate acute cardia pulmonary disease most consistent with moderate CHF.
[2023-04-06] MEDS ORDERED: IPRATROPIUM-ALBUTEROL 3 ML NEB INHALATION PRN (18:25)
[2023-04-06] MEDS ORDERED: methylPREDNISolone SOD SUCCI 125 MG/2 ML VIAL IV STA (18:25)
[2023-04-06] MEDS ORDERED: LEVOFLOXACIN 750MG-D5W PMX 750 MG in DEXTROSE/WATER 1 150ML.BAG IVPB STA (18:26)
[2023-04-06] MEDS ORDERED: PNEUMONIA PROTOCOL UTILIZED 1 EACH MISC PO PRN (18:26)
[2023-04-06] MEDS ORDERED: FUROSEMIDE 10 MG/ML 4 ML VIAL IV STA (18:29)
[2023-04-06] MEDS ORDERED: diphenhydrAMINE 50 MG/ML 1 ML VIAL IVP STA (19:35)
--- NOTE | 2023-04-06 19:42 | ED ---
SOB HPI - General Chief Complaint: Shortness of Breath Stated Complaint: sob Time Seen by Provider: 04/06/23 16:34 Source: patient, EMS Mode of arrival: EMS - History of Present Illness Initial Comments: 72-year-old female presenting with chief complaint of shortness of breath. Patient was sent from urgent care for evaluation. She states that she had a chest x-ray taken there and was told she had pneumonia. Patient was febrile upon arrival to urgent care and febrile here in our ER. Patient states that she has had increasing shortness of breath over the last 2-3 days. She has history of COPD and is a previous smoker. No chest pain. She does have some lower extr emity swelling, which she states is not different from her baseline. Admits to cough and congestion. - Related Data Home Medications Medication Instructions Recorded Confirmed Albuterol Sulfate [Ventolin HFA] 1 - 2 puff INHALATION RT-Q6H PRN 12/31/13 04/06/23 Atorvastatin [Lipitor] 80 mg PO HS 05/07/17 04/06/23 Cyanocobalamin [Vitamin B-12] 1,000 mcg PO DAILY@0800 06/18/17 04/06/23 Loratadine [Claritin] 10 mg PO DAILY@0800 07/07/17 04/06/23 Potassium Chloride [Klor-Con 10] 10 meq PO DAILY@0800 08/14/17 04/06/23 Fluticasone/Vilanterol [Breo 1 puff INHALATION RT-DAILY 04/06/23 04/06/23 Ellipta 100-25 Mcg Inhaler] Furosemide [Lasix] 20 mg PO BID@0800,1700 04/06/23 04/06/23 Magnesium 250 mg PO DAILY@1700 04/06/23 04/06/23 Tiotropium Danielson [Spiriva] 18 mcg INHALATION RT-DAILY 04/06/23 04/06/23 amLODIPine [Norvasc] 10 mg PO DAILY@0800 04/06/23 04/06/23 carvediloL [Coreg] 12.5 mg PO BID@0800,1700 04/06/23 04/06/23 Allergies Allergy/AdvReac Type Severity Reaction Status Date / Time amoxicillin [Amoxicillin] Allergy Rash/Hives Verified 04/06/23 20:15 azithromycin Allergy Itching Verified 04/06/23 20:15 Review of Systems ROS Statement: Those systems with pertinent positive or pertinent negative responses have been documented in the HPI. ROS Other: All systems not noted in ROS Statement are negative. Past Medical History Past Medical History: COPD, Diabetes Mellitus, Hyperlipidemia, Hypertension Additional Past Medical History / Comment(s): pt states she is a diet controlled diabetic. doesn't check glucose at home. History of Any Multi-Drug Resistant Organisms: None Reported Past Surgical History: Tubal Ligation Past Anesthesia/Blood Transfusion Reactions: No Reported Reaction Past Psychological History: Anxiety, Depression, Panic Disorder Past Alcohol Use History: None Reported Past Drug Use History: None Reported - Past Family History Mother Additional Family Medical History / Comment(s): suicide General Exam Limitations: no limitations General appearance: alert, in no apparent distress Head exam: Present: atraumatic, normocephalic, normal inspection Eye exam: Present: normal appearance, EOMI Neck exam: Present: normal inspection, full ROM Respiratory exam: Present: normal lung sounds bilaterally. Absent: respiratory distress, wheezes, rales, rhonchi, stridor Cardiovascular Exam: Present: regular rate, normal rhythm, normal heart sounds. Absent: systolic murmur, diastolic murmur, rubs, gallop, clicks Extremities exam: Present: pedal edema Neurological exam: Present: alert, oriented X3 Psychiatric exam: Present: normal affect, normal mood Skin exam: Present: warm, dry, intact, normal color. Absent: rash Course Vital Signs 04/06/23 04/06/23 04/06/23 16:26 16:29 18:16 Temperature 99.9 F H 99.6 F Pulse Rate 87 93 Respiratory 24 22 24 Rate Blood Pressure 149/71 O2 Sat by Pulse 95 92 L Oximetry Fraction of Inspired Oxygen (FIO2) 04/06/23 04/06/23 04/06/23 19:18 19:30 19:55 Temperature Pulse Rate 82 88 79 Respiratory 18 18 Rate Blood Pressure 144/72 115/72 O2 Sat by Pulse 95 95 Oximetry Fraction of Inspired Oxygen (FIO2) 04/06/23 04/06/23 04/06/23 20:07 20:15 20:45 Temperature Pulse Rate 73 Respiratory Rate Blood Pressure O2 Sat by Pulse 97 Oximetry Fraction of 50 Inspired Oxygen (FIO2) 04/06/23 04/06/23 21:21 21:50 Temperature 98.1 F Pulse Rate 78 77 Respiratory 22 22 Rate Blood Pressure 134/66 O2 Sat by Pulse 93 L 97 Oximetry Fraction of Inspired Oxygen (FIO2) Medical Decision Making - Medical Decision Making Was pt. sent in by a medical professional or institution (CHEVY Dominguez, TRAFFIC POLICE OFFICER, urgent care, hospital, or senior living...) When possible be specific @ -Urgent care Did you speak to anyone other than the patient for history (EMS, parent, family, police, friend...)? What history was obtained from this source @ -No Did you review nursing and triage notes (agree or disagree)? Why? @ -I reviewed and agree with nursing and triage notes Were old charts reviewed (outside hosp., previous admission, EMS record, old EKG, old radiological studies, urgent care reports/EKG's, senior living records)? Report findings @ -No old charts were reviewed Differential Diagnosis (chest pain, altered mental status, abdominal pain women, abdominal pain men, vaginal bleeding, weakness, fever, dyspnea, syncope, headache, dizziness, GI bleed, back pain, seizure, CVA, palpatations, mental health, musculoskeletal)? @ -MDM Differential Dyspnea: Coronary syndrome, arrhythmia, tamponade, asthma, COPD, pulmonary embolism, pneumonia, pneumothorax, pulmonary effusion, anaphylaxis, diabetic ketoacidosis, flailed chest, pulmonary contusion, diaphragmatic rupture, anemia, neuromuscular this is not meant to be an all-inclusive list. EKG interpreted by me (3pts min.). @ -Sinus rhythm with frequent ventricular premature complexes. Ventricular rate 92. NC interval 129. QRS 89. QT 340. QTc 389. X-rays interpreted by me (1pt min.). @ -Chest x-ray appears consistent with pneumonia versus CHF CT interpreted by me (1pt min.). @ -None done U/S interpreted by me (1pt. min.). @ -None done What testing was considered but not performed or refused? (CT, X-rays, U/S, labs)? Why? @ -None What meds were considered but not given or refused? Why? @ -None Did you discuss the management of the patient with other professionals (professionals i.e. CHEVY Dominguez, TRAFFIC POLICE OFFICER, lab, RT, psych nurse, outreach and education social worker, daytime caregiver, teacher, radiation officer, manager case)? Give summary @ -I spoke with Jimi Kulkarni from [facility] who accepted admission Was smoking cessation discussed for >3mins.? @ -No Was critical care preformed (if so, how long)? @ -No Were there social determinants of health that impacted care today? How? (Homelessness, low income, unemployed, alcoholism, drug addiction, transportation, low edu. Level, literacy, decrease access to med. care, fdc, rehab)? @ -No Was there de-escalation of care discussed even if they declined (Discuss DNR or withdrawal of care, Hospice)? DNR status @ -No What co-morbidities impacted this encounter? (DM, HTN, Smoking, COPD, CAD, Cancer, CVA, ARF, Chemo, Hep., AIDS, mental health diagnosis, sleep apnea, morbid obesity)? @ -COPD, diabetes, hypertension, hyperlipidemia Was patient admitted / discharged? Hospital course, mention meds given and route, prescriptions, significant lab abnormalities, going to OR and other pertinent info. @ -72-year-old female presenting with chief complaint of dyspnea. History and physical examination are conducted. Lab work is essentially unremarkable. Chest x-ray appears consistent with pneumonia versus CHF. Patient's BNP is 870. Given that patient has had a cough and fever she will be treated with Leva skyler, given ALLERGY to amoxicillin and azithromycin. She was given 40 mg of Lasix as she does have some lower extremity edema, however she states is consistent with her baseline. Patient required high flow nasal cannula. She is showing no signs of increased respiratory effort, she is able to hold conversation without gasping. Patient will be admitted. She is agreeable with this plan. I discussed this case with my attending Dr. Sawant Undiagnosed new problem with uncertain prognosis? @ -No Drug Therapy requiring intensive monitoring for toxicity (Heparin, Nitro, Insulin, Cardizem)? @ -No Were any procedures done? @ -No Diagnosis/symptom? @ -Pneumonia Acute, or Chronic, or Acute on Chronic? @ -Acute Uncomplicated (without systemic symptoms) or Complicated (systemic symptoms)? @ -complicated Side effects of treatment? @ -No Exacerbation, Progression, or Severe Exacerbation? @ -No Poses a threat to life or bodily function? How? (Chest pain, [place], [place], pneumonia, PE, COPD, DKA, ARF, appy, cholecystitis, CVA, Diverticulitis, Homicidal, Suicidal, threat to staff... and all critical care pts) @ -yes - Lab Data Result diagrams: 04/06/23 16:48 04/06/23 16:48 Lab Results 04/06/23 04/06/23 04/06/23 Range/Units 16:48 16:48 16:48 WBC 8.3 (3.8-10.6) k/uL RBC 4.04 (3.80-5.40) m/uL Hgb 12.0 (11.4-16.0) gm/dL Hct 35.4 (34.0-46.0) % MCV 87.7 (80.0-100.0) fL MCH 29.6 (25.0-35.0) pg MCHC 33.8 (31.0-37.0) g/dL RDW 14.6 (11.5-15.5) % Plt Count 187 (150-450) k/uL MPV 9.1 Neutrophils % 72 % Lymphocytes % 15 % Monocytes % 9 % Eosinophils % 1 % Basophils % 0 % Neutrophils # 6.0 (1.3-7.7) k/uL Lymphocytes # 1.2 (1.0-4.8) k/uL Monocytes # 0.8 (0-1.0) k/uL Eosinophils # 0.1 (0-0.7) k/uL Basophils # 0.0 (0-0.2) k/uL PT 10.0 (10.0-12.5) sec INR 0.9 (<1.2) APTT 24.0 (22.0-30.0) sec Sodium 138 (137-145) mmol/L Potassium 3.9 (3.5-5.1) mmol/L Chloride 101 (98-107) mmol/L Carbon Dioxide 28 (22-30) mmol/L Anion Gap 9 mmol/L BUN 16 (7-17) mg/dL Creatinine 0.75 (0.52-1.04) mg/dL Est GFR (CKD-EPI)AfAm >90 (>60 ml/min/1.73 sqM) Est GFR (CKD-EPI)NonAf 81 (>60 ml/min/1.73 sqM) Glucose 92 (74-99) mg/dL Plasma Lactic Acid Angel (0.7-2.0) mmol/L Calcium 9.3 (8.4-10.2) mg/dL Total Bilirubin 0.8 (0.2-1.3) mg/dL AST 28 (14-36) U/L ALT 22 (4-34) U/L Alkaline Phosphatase 104 (38-126) U/L Troponin I (0.000-0.034) ng/mL NT-Pro-B Natriuret Pep 870 pg/mL Total Protein 7.6 (6.3-8.2) g/dL Albumin 4.2 (3.5-5.0) g/dL Influenza Type A (PCR) (Not Detectd) Influenza Type B (PCR) (Not Detectd) RSV (PCR) (Not Detectd) SARS-CoV-2 (PCR) (Not Detectd) 04/06/23 04/06/23 04/06/23 Range/Units 16:48 16:48 17:26 WBC (3.8-10.6) k/uL RBC (3.80-5.40) m/uL Hgb (11.4-16.0) gm/dL Hct (34.0-46.0) % MCV (80.0-100.0) fL MCH (25.0-35.0) pg MCHC (31.0-37.0) g/dL RDW (11.5-15.5) % Plt Count (150-450) k/uL MPV Neutrophils % % Lymphocytes % % Monocytes % % Eosinophils % % Basophils % % Neutrophils # (1.3-7.7) k/uL Lymphocytes # (1.0-4.8) k/uL Monocytes # (0-1.0) k/uL Eosinophils # (0-0.7) k/uL Basophils # (0-0.2) k/uL PT (10.0-12.5) sec INR (<1.2) APTT (22.0-30.0) sec Sodium (137-145) mmol/L Potassium (3.5-5.1) mmol/L Chloride (98-107) mmol/L Carbon Dioxide (22-30) mmol/L Anion Gap mmol/L BUN (7-17) mg/dL Creatinine (0.52-1.04) mg/dL Est GFR (CKD-EPI)AfAm (>60 ml/min/1.73 sqM) Est GFR (CKD-EPI)NonAf (>60 ml/min/1.73 sqM) Glucose (74-99) mg/dL Plasma Lactic Acid Angel 1.1 (0.7-2.0) mmol/L Calcium (8.4-10.2) mg/dL Total Bilirubin (0.2-1.3) mg/dL AST (14-36) U/L ALT (4-34) U/L Alkaline Phosphatase (38-126) U/L Troponin I <0.012 (0.000-0.034) ng/mL NT-Pro-B Natriuret Pep pg/mL Total Protein (6.3-8.2) g/dL Albumin (3.5-5.0) g/dL Influenza Type A (PCR) Not Detected (Not Detectd) Influenza Type B (PCR) Not Detected (Not Detectd) RSV (PCR) Not Detected (Not Detectd) SARS-CoV-2 (PCR) Not Detected (Not Detectd) Disposition Clinical Impression: Pneumonia Disposition: ADMITTED IP TO THIS HOSP Condition: Fair
[2023-04-07] MEDS: ATORVASTATIN 80 MG TAB PO SCH ×2 (00:35→20:28)
[2023-04-07] MEDS: carvediloL 12.5 MG TAB PO SCH ×2 (08:52→20:28)
[2023-04-07] MEDS: methylPREDNISolone SOD SUCCI 125 MG/2 ML VIAL IV SCH (08:53)
[2023-04-07] MEDS ORDERED: FUROSEMIDE 20 MG TAB PO SCH (09:00)
[2023-04-07] MEDS ORDERED: ALBUTEROL HFA INHALER INHALATION PRN (09:04)
[2023-04-07] MEDS ORDERED: BENZONATATE 100 MG CAP PO PRN (09:08)
[2023-04-07] MEDS ORDERED: NALOXONE 0.4 MG/ML 1 ML VIAL IVP PRN (09:08)
[2023-04-07] MEDS ORDERED: ACETAMINOPHEN TAB 325 MG TAB PO PRN (09:08)
[2023-04-07] MEDS: SYMBICORT 80-4.5 MCG INHALER INHALATION SCH ×2 (11:07→21:17)
[2023-04-07] MEDS: CYANOCOBALAMIN 500 MCG TAB PO SCH (11:23)
[2023-04-07] MEDS: DOXYCYCLINE 100 MG in SODIUM CHLORIDE 0.9% 100 ML IVPB SCH ×2 (11:23→20:28)
[2023-04-07] MEDS: POTASSIUM CHLORIDE ER 10 MEQ TAB.ER.PRT PO SCH (11:24)
[2023-04-07] MEDS: amLODIPine 10 MG TAB PO SCH (11:24)
[2023-04-07] MEDS: LORATADINE 10 MG TAB PO SCH (11:24)
[2023-04-07] MEDS: guaiFENesin 600 MG TABLET.ER PO SCH ×2 (11:24→20:28)
[2023-04-07] MEDS: IPRATROPIUM 0.5 MG/2.5 ML NEBU INHALATION SCH ×3 (11:25→21:17)
[2023-04-07] MEDS: IPRATROPIUM-ALBUTEROL 3 ML NEB INHALATION PRN ×2 (11:25→15:29)
--- NOTE | 2023-04-07 12:22 | P.HPIM ---
History of Present Illness H&P Date: 04/07/23 Chief Complaint: Shortness of breath * 72-year-old lady with past medical history significant for hypertension, COPD, congestive heart failure presents to the emergency department with complains of shortness of breath. Patient was sent from an urgent care for evaluation with chest x-ray was done and there was a concern for pneumonia. At the time of presentation in ER patient was noted to have low-grade temperature of 99.9. Patient has been complaining of shortness of breath for the last 3 days. Patient does have history of COPD, patient also complained of worsening cough and chest congestion.. Patient does have lower extremity swelling however that has not worsened. * Review of blood work obtained in ER included CBC which were WBC of 8.3 hemoglobin 12 hematocrit of 35 platelet 187. Serum chemistry and a 0.9 PT 10. Sodium 138 potassium 3.9-28 BUN 16 creatinine 0.75 liver profile within normal limits * Patient tested negative for influenza, RSV and Covid * Patient states she has had second episode of pneumonia in 2 months, patient states she has been exposed to sick contacts with her granddaughter having cough recently * Patient was given IV Lasix, IV Solu-Medrol, IV Levaquin in ED and admitted to medical floor for further management with consultation from pulmonary medicine and cardiology REVIEW OF SYSTEMS: Shortness of breath, cough CONSTITUTIONAL: No fever, no malaise, no fatigue. HEENT: No recent visual problems or hearing problems. Denied any sore throat. CARDIOVASCULAR: No chest pain, orthopnea, PND, no palpitations, no syncope. PULMONARY: No shortness of breath, no cough, no hemoptysis. GASTROINTESTINAL: No diarrhea, no nausea, no vomiting, no abdominal pain. NEUROLOGICAL: No headaches, no weakness, no numbness. HEMATOLOGICAL: Denies any bleeding or petechiae. GENITOURINARY: Denies any burning micturition, frequency, or urgency. MUSCULOSKELETAL/RHEUMATOLOGICAL: Denies any joint pain, swelling, or any muscle pain. ENDOCRINE: Denies any polyuria or polydipsia. PHYSICAL EXAMINATION: GENERAL: The patient is alert and oriented x3, nasal cannula in place/ ill- appearing HEENT: Pupils are round and equally reacting to light. EOMI. CARDIOVASCULAR: S1 and S2 present. No murmurs, rubs, or gallops. PULMONARY: Decreased breath sounds bilaterally/rhonchi audible ABDOMEN: Soft, nontender, nondistended, normoactive bowel sounds. No palpable organomegaly. MUSCULOSKELETAL: No joint swelling or deformity. EXTREMITIES: No cyanosis, clubbing, or pedal edema. NEUROLOGICAL: Gross neurological examination did not reveal any focal deficits. Past Medical History Past Medical History: COPD, Diabetes Mellitus, Hyperlipidemia, Hypertension Additional Past Medical History / Comment(s): pt states she is a diet controlled diabetic. doesn't check glucose at home. History of Any Multi-Drug Resistant Organisms: None Reported Past Surgical History: Tubal Ligation Past Anesthesia/Blood Transfusion Reactions: No Reported Reaction Past Psychological History: Anxiety, Depression, Panic Disorder Past Alcohol Use History: None Reported Past Drug Use History: None Reported - Past Family History Mother Additional Family Medical History / Comment(s): suicide Medications and Allergies Home Medications Medication Instructions Recorded Confirmed Type Albuterol Sulfate [Ventolin HFA] 1 - 2 puff INHALATION RT-Q6H PRN 12/31/13 04/06/23 History Atorvastatin [Lipitor] 80 mg PO HS 05/07/17 04/06/23 History Cyanocobalamin [Vitamin B-12] 1,000 mcg PO DAILY@0800 06/18/17 04/06/23 History Loratadine [Claritin] 10 mg PO DAILY@0800 07/07/17 04/06/23 History Potassium Chloride [Klor-Con 10] 10 meq PO DAILY@0800 08/14/17 04/06/23 History Fluticasone/Vilanterol [Breo 1 puff INHALATION RT-DAILY 04/06/23 04/06/23 History Ellipta 100-25 Mcg Inhaler] Furosemide [Lasix] 20 mg PO BID@0800,1700 04/06/23 04/06/23 History Magnesium 250 mg PO DAILY@1700 04/06/23 04/06/23 History Tiotropium [place] [Spiriva] 18 mcg INHALATION RT-DAILY 04/06/23 04/06/23 Hist ory amLODIPine [Norvasc] 10 mg PO DAILY@0800 04/06/23 04/06/23 History carvediloL [Coreg] 12.5 mg PO BID@0800,1700 04/06/23 04/06/23 History Allergies Allergy/AdvReac Type Severity Reaction Status Date / Time amoxicillin [Amoxicillin] Allergy Rash/Hives Verified 04/06/23 20:15 azithromycin Allergy Itching Verified 04/06/23 20:15 Physical Exam Vitals: Vital Signs Temp Pulse Pulse Resp BP BP Pulse Ox 04/07/23 08:29 96 04/07/23 03:15 77 20 04/07/23 02:00 97.8 F 77 20 130/72 97 04/06/23 22:30 77 20 04/06/23 21:50 98.1 F 77 22 134/66 97 04/06/23 21:21 78 22 93 L 04/06/23 20:45 97 04/06/23 20:15 73 04/06/23 20:07 04/06/23 19:55 79 04/06/23 19:30 88 18 115/72 95 04/06/23 19:18 82 18 144/72 95 04/06/23 18:16 99.6 F 93 24 92 L 04/06/23 16:29 22 04/06/23 16:26 99.9 F H 87 24 149/71 95 FiO2 04/07/23 08:29 04/07/23 03:15 04/07/23 02:00 04/06/23 22:30 04/06/23 21:50 04/06/23 21:21 04/06/23 20:45 04/06/23 20:15 04/06/23 20:07 50 04/06/23 19:55 04/06/23 19:30 04/06/23 19:18 04/06/23 18:16 04/06/23 16:29 04/06/23 16:26 Intake and Output 04/06/23 04/07/23 04/07/23 22:59 06:59 14:59 Other: Voiding Method Toilet Toilet # Voids 2 Weight 83.915 kg 84.9 kg Results CBC & Chem 7: 04/06/23 16:48 04/06/23 16:48 Thrombosis Risk Factor Assmnt - Choose All That Apply Any of the Below Risk Factors Present?: Yes Each Factor Represents 1 point: Abnormal pulmonary function (COPD), Serious lung disease incl. pneumonia (< 1month) Other Risk Factors: Yes Each Risk Factor Represents 2 Points: Age 61-74 years Thrombosis Risk Factor Assessment Total Risk Factor Score: 4 Thrombosis Risk Factor Assessment Level: Moderate Risk Assessment and Plan Assessment: Assessment and plan Acute hypoxic respiratory failure Acute exacerbation of COPD Acute tracheobronchitis Acute on chronic congestive heart failure * In regards to acute hypoxic respiratory failure chest x-ray obtained showed bilateral pulmonary vascular congestion/continue IV Solu-Medrol, continue doxycycline, continue breathing treatments/pulmonary medicine consulted * In regards to COPD exacerbation/continue breathing treatments continue steroid continue antibiotic * In regards to congestive heart failure/echocardiogram ordered, continue IV Lasix continue to monitor intake and output * In regards to tracheobronchitis/patient tested negative for RSV, influenza, coronavirus. Continue doxycycline, continue Mucinex * CODE STATUS is full code Time with Patient: Greater than 30
[2023-04-07] MEDS: FUROSEMIDE 10 MG/ML 4 ML VIAL IV SCH (12:27)
--- NOTE | 2023-04-07 15:20 | P.CNPUL ---
History of Present Illness Consult date: 04/07/23 Reason for consult: dyspnea History of present illness: 72-year-old female patient, hospitalized for shortness of breath. The patient also COPD, hypertension hyperlipidemia and diabetes mellitus type 2. The patient was initially seen at the urgent care and the patient was sent over to the hospital for concerns of a pneumonia. The patient a temperature of 99.9. The patient has been complaining of shortness of breath for the past 3 days. The patient had increased cough and congestion. The patient also had some chronic lower lower extremity edema without any interval worsening. The viral screening was negative. The white cell count was at 8.3 with a hemoglobin of 12 and a platelet count of 187. Normal cognition profile. Normal electrolytes. Normal LFTs. ProBNP level is at 87. Troponins are negative the chest x-ray is consistent with increased pulmonary vessel markings and it's more suggestive of CHF than pneumonia. The patient is currently on doxycycline. The patient is on DuoNeb updrafts and IV Solu-Medrol. Patient is also on Lasix 40 mg IV every 24 hours. Initially, the patient was started on oxygen at 6 L nasal cannula and the patient was brought up to 15 L nasal cannula for hypoxic respiratory failure. Current pulse ox is 95%. Breathing is nonlabored. Review of Systems Constitutional: Reports as per HPI, Reports fatigue, Reports weakness Eyes: denies as per HPI, denies blurred vision, denies bulging eye, denies decreased vision, denies diplopia, denies discharge, denies dry eye, denies irritation, denies itching, denies pain, denies photophobia, denies loss of peripheral vision, denies loss of vision, denies tunnel vision/blind spots Ears: deny: decreased hearing, ear discharge, earache, tinnitus Ears, nose, mouth and throat: Reports as per HPI Breasts: absent: as per HPI, change in shape, gynecomastia, masses, nipple discharge, pain, skin changes, swelling Cardiovascular: Reports decreased exercise tolerance, Reports dyspnea on exertion Respiratory: Reports cough, Reports dyspnea, Reports wheezing Gastrointestinal: Reports as per HPI Genitourinary: Reports as per HPI, Reports genital sores Musculoskeletal: Reports as per HPI Musculoskeletal: absent: ankle pain, ankle stiffness, ankle swelling Integumentary: Reports as per HPI Neurological: Reports as per HPI Psychiatric: Reports as per HPI Endocrine: Reports as per HPI Hematologic/Lymphatic: Reports as per HPI Allergic/Immunologic: Reports as per HPI Past Medical History Past Medical History: COPD, Diabetes Mellitus, Hyperlipidemia, Hypertension Additional Past Medical History / Comment(s): pt states she is a diet controlled diabetic. doesn't check glucose at home. History of Any Multi-Drug Resistant Organisms: None Reported Past Surgical History: Tubal Ligation Past Anesthesia/Blood Transfusion Reactions: No Reported Reaction Past Psychological History: Anxiety, Depression, Panic Disorder Past Alcohol Use History: None Reported Past Drug Use History: None Reported - Past Family History Mother Additional Family Medical History / Comment(s): suicide Medications and Allergies Home Medications Medication Instructions Recorded Confirmed Type Albuterol Sulfate [Ventolin HFA] 1 - 2 puff INHALATION RT-Q6H PRN 12/31/13 04/06/23 History Atorvastatin [Lipitor] 80 mg PO HS 05/07/17 04/06/23 History Cyanocobalamin [Vitamin B-12] 1,000 mcg PO DAILY@0800 06/18/17 04/06/23 History Loratadine [Claritin] 10 mg PO DAILY@0800 07/07/17 04/06/23 History Potassium Chloride [Klor-Con 10] 10 meq PO DAILY@0800 08/14/17 04/06/23 History Fluticasone/Vilanterol [Breo 1 puff INHALATION RT-DAILY 04/06/23 04/06/23 History Ellipta 100-25 Mcg Inhaler] Furosemide [Lasix] 20 mg PO BID@0800,1700 04/06/23 04/06/23 History Magnesium 250 mg PO DAILY@1700 04/06/23 04/06/23 History Tiotropium [place] [Spiriva] 18 mcg INHALATION RT-DAILY 04/06/23 04/06/23 Histor y amLODIPine [Norvasc] 10 mg PO DAILY@0800 04/06/23 04/06/23 History carvediloL [Coreg] 12.5 mg PO BID@0800,1700 04/06/23 04/06/23 History Allergies Allergy/AdvReac Type Severity Reaction Status Date / Time amoxicillin [Amoxicillin] Allergy Rash/Hives Verified 04/06/23 20:15 azithromycin Allergy Itching Verified 04/06/23 20:15 Physical Exam Vitals: Vital Signs Temp Pulse Pulse Resp BP BP Pulse Ox 11/19/23 11:39 77 18 04/07/23 11:25 79 18 04/07/23 08:29 96 04/07/23 03:15 77 20 04/07/23 02:00 97.8 F 77 20 130/72 97 04/06/23 22:30 77 20 04/06/23 21:50 98.1 F 77 22 134/66 97 04/06/23 21:21 78 22 93 L 04/06/23 20:45 97 04/06/23 20:15 73 04/06/23 20:07 04/06/23 19:55 79 04/06/23 19:30 88 18 115/72 95 04/06/23 19:18 82 18 144/72 95 04/06/23 18:16 99.6 F 93 24 92 L 04/06/23 16:29 22 04/06/23 16:26 99.9 F H 87 24 149/71 95 FiO2 04/07/23 11:39 04/07/23 11:25 04/07/23 08:29 04/07/23 03:15 04/07/23 02:00 04/06/23 22:30 04/06/23 21:50 04/06/23 21:21 04/06/23 20:45 04/06/23 20:15 04/06/23 20:07 50 04/06/23 19:55 04/06/23 19:30 04/06/23 19:18 04/06/23 18:16 04/06/23 16:29 04/06/23 16:26 Intake and Output 04/06/23 04/07/23 04/07/23 22:59 06:59 14:59 Intake Total 598 Balance 598 Intake: Oral 598 Other: Voiding Method Toilet Toilet # Voids 2 Weight 83.915 kg 84.9 kg GENERAL: The patient is alert and oriented x3, nasal cannula in place/ ill- appearing. The patient is currently on 15 L high flow with a pulse ox of 96% Head exam was generally normal. There was no scleral icterus or corneal arcus. Mucous membranes were moist. HEENT: Pupils are round and equally reacting to light. EOMI. CARDIOVASCULAR: S1 and S2 present. No murmurs, rubs, or gallops. PULMONARY: Decreased breath sounds bilaterally/rhonchi audible ABDOMEN: Soft, nontender, nondistended, normoactive bowel sounds. No palpable organomegaly. MUSCULOSKELETAL: No joint swelling or deformity. EXTREMITIES: No cyanosis, clubbing, or pedal edema. NEUROLOGICAL: Gross neurological examination did not reveal any focal deficits. Examination of the skin revealed no evidence of significant rashes, suspicious appearing nevi or other concerning lesions. Results - Laboratory Findings CBC and BMP: 04/06/23 16:48 04/06/23 16:48 PT/INR, D-dimer PT 10.0 sec (10.0-12.5) 04/06/23 16:48 INR 0.9 (<1.2) 04/06/23 16:48 - Diagnostic Findings Chest x-ray: image reviewed Assessment and Plan Plan: Acute hypoxic respiratory failure, currently on 15 L of Oxymizer nasal cannula, combination of COPD, CHF and possibly lower lobe pneumonia, improving and FiO2 has been weaned down to 6 L again COPD maintain on Spiriva and Breo outpatient basis and the combination with Ventolin rescue inhaler. CHF Diabetes mellitus type 2 Hypertension Hyperlipidemia Chronic anxiety/depression/panic Plan Add Rocephin. Continue doxycycline. Continue daily diuretics in the form of Lasix 40 mg IV Lasix every 24 hours Continue bronchodilators Continue steroids Titrate FiO2 to maintain saturation about 90% Monitor blood sugar control accordingly Repeat an echocardiogram We'll continue to follow
[2023-04-07] MEDS: MAGNESIUM OXIDE 400 MG TAB PO SCH (17:10)
[2023-04-08] MEDS: IPRATROPIUM 0.5 MG/2.5 ML NEBU INHALATION SCH ×4 (08:08→19:52)
[2023-04-08] MEDS: SYMBICORT 80-4.5 MCG INHALER INHALATION SCH ×2 (08:08→19:52)
[2023-04-08 08:31] LABS: HCT 32.8 % (34.0-46.0); HGB 10.5 gm/dL (11.4-16.0); MCH 28.7 pg (25.0-35.0); MCV 89.8 fL (80.0-100.0); Mean Platelet Volume 10.3; Platelet Count 236 k/uL (150-450); RBC 3.65 m/uL (3.80-5.40); RDW 14.5 % (11.5-15.5); WBC 13.4 k/uL (3.8-10.6)
[2023-04-08 09:01] LABS: African American GFR (CKD) 89 (>60 ml/min/1.73 sqM); Anion Gap 6 mmol/L; Blood Urea Nitrogen 28 mg/dL (7-17); C Reactive Protein 3.2 mg/dL (<1.0); Calcium 9.3 mg/dL (8.4-10.2); Carbon Dioxide 31 mmol/L (22-30); Chloride 103 mmol/L (98-107); Glucose 172 mg/dL (74-99); Non-African American GFR(CKD) 78 (>60 ml/min/1.73 sqM); Potassium 4.1 mmol/L (3.5-5.1); Sodium 140 mmol/L (137-145)
[2023-04-08] MEDS: amLODIPine 10 MG TAB PO SCH (09:44)
[2023-04-08] MEDS: carvediloL 12.5 MG TAB PO SCH ×2 (09:44→21:30)
[2023-04-08] MEDS: POTASSIUM CHLORIDE ER 10 MEQ TAB.ER.PRT PO SCH (09:44)
[2023-04-08] MEDS: LORATADINE 10 MG TAB PO SCH (09:44)
[2023-04-08] MEDS: guaiFENesin 600 MG TABLET.ER PO SCH ×2 (09:44→21:30)
[2023-04-08] MEDS: DOXYCYCLINE 100 MG in SODIUM CHLORIDE 0.9% 100 ML IVPB SCH ×2 (09:45→21:30)
[2023-04-08] MEDS: CYANOCOBALAMIN 500 MCG TAB PO SCH (09:45)
[2023-04-08] MEDS: FUROSEMIDE 10 MG/ML 4 ML VIAL IV SCH (09:45)
[2023-04-08] MEDS: methylPREDNISolone SOD SUCCI 125 MG/2 ML VIAL IV SCH (09:45)
[2023-04-08] MEDS: ENOXAPARIN 40 MG/0.4 ML SYRINGE SQ SCH (09:46)
--- NOTE | 2023-04-08 12:18 | P.PN ---
Subjective Progress Note Date: 04/08/23 * 72-year-old lady with past medical history significant for hypertension, COPD, congestive heart failure presents to the emergency department with complains of shortness of breath. Patient was sent from an urgent care for evaluation with chest x-ray was done and there was a concern for pneumonia. At the time of presentation in ER patient was noted to have low-grade temperature of 99.9. Patient has been complaining of shortness of breath for the last 3 days. Patient does have history of COPD, patient also complained of worsening cough and chest congestion.. Patient does have lower extremity swelling however that has not worsened. * Review of blood work obtained in ER included CBC which were WBC of 8.3 hemoglobin 12 hematocrit of 35 platelet 187. Serum chemistry and a 0.9 PT 10. Sodium 138 potassium 3.9-28 BUN 16 creatinine 0.75 liver profile within normal limits * Patient tested negative for influenza, RSV and Covid * Patient states she has had second episode of pneumonia in 2 months, patient states she has been exposed to sick contacts with her granddaughter having cough recently * Patient was given IV Lasix, IV Solu-Medrol, IV Levaquin in ED and admitted to medical floor for further management with consultation from pulmonary medicine and cardiology * 04/08/23: Patient seen and evaluated bedside, patient states shortness of breath is improved, continue Rocephin and doxycycline, continue IV Lasix continue IV Solu-Medrol pulmonary medicine team following wean down on oxygen requirements as tolerated, CRP 3.2 REVIEW OF SYSTEMS: Shortness of breath, cough is improved CONSTITUTIONAL: No fever, no malaise, no fatigue. HEENT: No recent visual problems or hearing problems. Denied any sore throat. CARDIOVASCULAR: No chest pain, orthopnea, PND, no palpitations, no syncope. PULMONARY: No shortness of breath, no cough, no hemoptysis. GASTROINTESTINAL: No diarrhea, no nausea, no vomiting, no abdominal pain. NEUROLOGICAL: No headaches, no weakness, no numbness. HEMATOLOGICAL: Denies any bleeding or petechiae. GENITOURINARY: Denies any burning micturition, frequency, or urgency. MUSCULOSKELETAL/RHEUMATOLOGICAL: Denies any joint pain, swelling, or any muscle pain. ENDOCRINE: Denies any polyuria or polydipsia. PHYSICAL EXAMINATION: See below GENERAL: The patient is alert and oriented x3, nasal cannula in place/ ill- appearing HEENT: Pupils are round and equally reacting to light. EOMI. CARDIOVASCULAR: S1 and S2 present. No murmurs, rubs, or gallops. PULMONARY: Decreased breath sounds bilaterally/rhonchi audible bilaterally and basic ABDOMEN: Soft, nontender, nondistended, normoactive bowel sounds. No palpable organomegaly. MUSCULOSKELETAL: No joint swelling or deformity. EXTREMITIES: Lower extremity edema noted NEUROLOGICAL: Gross neurological examination did not reveal any focal deficits. Objective - Vital Signs Vital signs: Vital Signs Temp 98 F 04/08/23 09:40 Pulse 78 04/08/23 09:40 Resp 18 04/08/23 09:40 BP 137/70 04/08/23 09:40 Pulse Ox 93 L 04/08/23 09:40 FiO2 50 04/06/23 20:07 Intake & Output 04/07/23 04/08/23 04/08/23 18:59 06:59 18:59 Intake Total 838 320 Output Total 950 725 180 Balance -112 -725 140 Weight 84.7 kg Intake: Oral 838 320 Output: Urine 950 725 180 Other: Voiding Method Toilet Toilet Toilet # Voids 1 1 - Labs CBC & Chem 7: 04/08/23 07:24 04/08/23 07:24 Labs: Abnormal Lab Results - Last 24 Hours (Table) 04/08/23 04/08/23 Range/Units 07:24 07:24 WBC 13.4 H (3.8-10.6) k/uL RBC 3.65 L (3.80-5.40) m/uL Hgb 10.5 L (11.4-16.0) gm/dL Hct 32.8 L (34.0-46.0) % Carbon Dioxide 31 H (22-30) mmol/L BUN 28 H (7-17) mg/dL Glucose 172 H (74-99) mg/dL C-Reactive Protein 3.2 H (<1.0) mg/dL Assessment and Plan Assessment: Assessment and plan * Acute hypoxic respiratory failure * Acute exacerbation of COPD * Acute tracheobronchitis * Acute on chronic congestive heart failure * In regards to acute hypoxic respiratory failure chest x-ray obtained showed bilateral pulmonary vascular congestion/continue IV Solu-Medrol, continue doxycycline/Ceftin, continue breathing treatments/pulmonary medicine consulted * In regards to COPD exacerbation/continue breathing treatments continue steroid continue antibiotic * In regards to congestive heart failure/echocardiogram ordered, continue IV Lasix continue to monitor intake and output * In regards to tracheobronchitis/patient tested negative for RSV, influenza, coronavirus. Continue doxycycline/ Rocephin, continue Mucinex * CODE STATUS is full code Time with Patient: Greater than 30
[2023-04-08 12:36] VITALS: BMI 34.1
--- NOTE | 2023-04-08 15:11 | P.PN ---
Subjective Progress Note Date: 04/08/23 72-year-old female patient, hospitalized for shortness of breath. The patient also COPD, hypertension hyperlipidemia and diabetes mellitus type 2. The patient was initially seen at the urgent care and the patient was sent over to the hospital for concerns of a pneumonia. The patient a temperature of 99.9. The patient has been complaining of shortness of breath for the past 3 days. The patient had increased cough and congestion. The patient also had some chronic lower lower extremity edema without any interval worsening. The viral screening was negative. The white cell count was at 8.3 with a hemoglobin of 12 and a platelet count of 187. Normal cognition profile. Normal electrolytes. Normal LFTs. ProBNP level is at 87. Troponins are negative the chest x-ray is consistent with increased pulmonary vessel markings and it's more suggestive of CHF than pneumonia. The patient is currently on doxycycline. The patient is on DuoNeb updrafts and IV Solu-Medrol. Patient is also on Lasix 40 mg IV every 24 hours. Initially, the patient was started on oxygen at 6 L nasal cannula and the patient was brought up to 15 L nasal cannula for hypoxic respiratory failure. Current pulse ox is 95%. Breathing is nonlabored. The patient is seen today 04/08/2023 in follow-up on the selective care unit. She is resting comfortably in bed. She is currently maintaining O2 saturations 90s on 3 L/m per nasal cannula. She is feeling quite a bit better. She is being treated for congestive heart failure and possible pneumonia. Blood cultures reveal no growth. White count 13.4. Hemoglobin 10.5. Platelets 236. Sodium 140. Potassium 4.1. Bicarb 31. BUN 28. Creatinine 0.78. Glucose 172. Pro calcitonin pending. Echocardiogram pending. Remains on antibiotics in the form of ceftriaxone and doxycycline. Continue on Symbicort, DuoNeb inhalations, Solu-Medrol. She remains on IV diuretics. No accurate I&O. Objective - Vital Signs Vital signs: Vital Signs Temp 98 F 04/08/23 09:40 Pulse 86 04/08/23 12:31 Resp 17 04/08/23 11:10 BP 126/67 04/08/23 11:10 Pulse Ox 100 04/08/23 11:10 FiO2 50 04/06/23 20:07 Intake & Output 04/07/23 04/08/23 04/08/23 18:59 06:59 18:59 Intake Total 838 438 Output Total 950 725 180 Balance -112 -725 258 Weight 84.7 kg 84.7 kg Intake: Oral 838 438 Output: Urine 950 725 180 Other: Voiding Method Toilet Toilet Toilet # Voids 1 1 - Exam GENERAL EXAM: Alert, pleasant 72-year-old female, on 3 L nasal cannula, comfortable in no apparent distress. HEAD: Normocephalic. EYES: Normal reaction of pupils, equal size. NOSE: Clear with pink turbinates. THROAT: No erythema or exudates. NECK: No masses, no JVD. CHEST: No chest wall deformity. LUNGS: Equal air entry with crackles in the bilateral bases. CVS: S1 and S2 normal with no audible murmur, regular rhythm. ABDOMEN: No hepatosplenomegaly, normal bowel sounds, no guarding or rigidity. SPINE: No scoliosis or deformity SKIN: No rashes CENTRAL NERVOUS SYSTEM: No focal deficits, tone is normal in all 4 extremities. EXTREMITIES: There is no peripheral edema. No clubbing, no cyanosis. Peripheral pulses are intact. - Labs CBC & Chem 7: 04/08/23 07:24 04/08/23 07:24 Labs: Abnormal Lab Results - Last 24 Hours (Table) 04/08/23 04/08/23 Range/Units 07:24 07:24 WBC 13.4 H (3.8-10.6) k/uL RBC 3.65 L (3.80-5.40) m/uL Hgb 10.5 L (11.4-16.0) gm/dL Hct 32.8 L (34.0-46.0) % Carbon Dioxide 31 H (22-30) mmol/L BUN 28 H (7-17) mg/dL Glucose 172 H (74-99) mg/dL C-Reactive Protein 3.2 H (<1.0) mg/dL Microbiology - Last 24 Hours (Table) 04/06/23 19:05 Blood Culture - Preliminary Blood 04/06/23 19:15 Blood Culture - Preliminary Blood Assessment and Plan Assessment: Acute hypoxic respiratory failure, secondary to a combination of COPD, CHF and possibly lower lobe pneumonia, improving and FiO2 has been weaned down to 3 L COPD maintain on Spiriva and Breo outpatient basis and the combination with Ventolin rescue inhaler. Has home oxygen CHF Diabetes mellitus type 2 Hypertension Hyperlipidemia Chronic anxiety/depression/panic Plan: The patient was seen and evaluated Medications and labs reviewed Improved on 3 L nasal cannula Procalcitonin pending Echocardiogram pending Continue antibiotics, diuretics Follow-up chest x-ray in a.m. We will continue to follow I have personally seen and examined the patient, performed the documentation and the assessment and plan as written. Number of minutes spent on the visit: 10.
[2023-04-08] MEDS: MAGNESIUM OXIDE 400 MG TAB PO SCH (15:46)
--- NOTE | 2023-04-08 16:45 | CDI ---
Documentation Clarification Form Date: 04/08/2023 04:25:54 PM From: Aydee Johnson RN, CCDS Email: [email or web address] Admit Date: 04/06/2023 06:16:00 PM Patient Name: Bina Padron Visit Number: [id number] Discharge Date: ATTENTION: The Clinical Documentation Specialists (CDI) and [facility] Coding Staff appreciate your assistance in clarifying documentation. Please respond to the clarification below the line at the bottom and electronically sign. The CDI & [facility] Coding staff will review the response and follow-up if needed. Please note: Queries are made part of the Legal Health Record. If you have any questions, please contact the author of this message via ITS. Dr. Kelly May Your patient has the documented diagnosis of acute on chronic congestive heart failure in the H&P and progress notes. Additional information regarding the type of CHF is requested. History/Risk Factors: HTN, COPD, CHF, DM and pneumonia. Presented with complaints of SOB. Admitted with acute hypoxic respiratory failure secondary to COPD, CHF and possible pneumonia. Clinical Indicators: H&P: "Acute on chronic congestive heart failure." 04/08 IM: "Acute on chronic congestive heart failure." VS/Pulse OX: 92-100% 04/06 BNP: 870 04/06 Chest X Ray: Moderate acute cardio pulmonary disease most consistent with moderate CHF. Treatment: O2 3-15L; IV Lasix 40mg x1 on 04/06; IV Lasix 40mg daily 04/07- current; intake and output; daily weight In your professional opinion, can you please clarify the type of CHF if known? [ ] Acute on Chronic Systolic Heart Failure (reduced EF) [ ] Acute on Chronic Diastolic Heart Failure (preserved EF) [ ] Acute on Chronic Heart Failure Systolic & Diastolic Heart Failure [ ] Other, please specify [ y ] Unable to determine MTDD
--- NOTE | 2023-04-08 16:53 | P.CRDCN ---
History of Present Illness Consult date: 04/08/23 Consult reason: congestive heart failure History of present illness: History of present illness: This is a 72-year-old female patient of Dr. Oziel Christensen with past medical history of COPD, chronic hypoxic respiratory failure on home O2, hypertension, hyperlipidemia, chronic diastolic heart failure. We have been asked to evaluate the patient for CHF exacerbation. Patient states that she has had shortness of breath for the past 3-4 days with increased weight and lower extremity edema. She is normally on home O2 for COPD. She also has a fever. She states she had a little bit of sharp chest pain went away. She denies any history of cardiac stents and no cardiac surgeries. EKG sinus rhythm with occasional PVCs. Chest x-ray: Moderate acute cardiopulmonary disease most consistent with moderate CHF. WBC 13.4, hemoglobin 10.5, platelet count 236. INR 0.9. Potassium 4.1, BUN 20 creatinine 0.78. Liver function tests normal. Troponin negative 1. Pro- calcitonin 0.04. ProBNP 870. Influenza A, Saturday B, RSV, Covid 19 not detected. Home cardiac medications: Amlodipine 10 mg daily, atorvastatin 80 mg at bedtime, Coreg 12.5 mg twice daily, Lasix 20 mg twice daily, magnesium 250 mg daily, potassium chloride 10 mEq daily. Lexiscan stress test performed 09/2018 revealed normal myocardial perfusion and function. Echocardiogram performed in the office on 12/12/2022 revealed normal LV size and function with EF of 55%, grade 2 diastolic dysfunction. Moderate concentric left hypertrophy. Mild aortic stenosis, mild mitral regurgitation, moderate tricuspid regurgitation. PAS P 53 mmHg. Review Of Systems: At the time of my evaluation: Constitutional: No fever, no chills. No weakness, fatigue or lethargy. EENT: No headache. No dizziness. Lungs: + shortness of breath, cough, no sputum production. No wheezing. Cardiovascular: No chest pain, + lower extremity edema. No palpitations. No paroxysmal nocturnal dyspnea. No orthopnea. No lightheadedness or dizziness. No syncopal episodes. Abdominal: No abdominal pain. No nausea, vomiting. No diarrhea. Musculoskeletal: No myalgias. No muscle weakness, no frequent falls. Integumentary: No wounds. No rash. No unusual bruising. Neurologic: No aphasia. No facial droop. No change in mentation. Physical examination: Gen: This is a 72-year-old female. She is resting in bed appears to be comfortable and in no acute distress. VS: reviewed blood pressure 126/67, heart rate in the 70s and 80s, pulse ox 100% on 3 L nasal cannula, afebrile HEENT: Head is atraumatic, normocephalic. Pupils equal, round. Sclerae is anicteric. NECK: Supple. No JVD. . LUNGS: Bilateral wheezing and crackles. No intercostal retractions. HEART: Regular rate and rhythm. No murmur. ABDOMEN: Soft No tenderness. EXTREMITIES: 1+ bilateral pedal edema. No calf tenderness. NEUROLOGICAL: Patient is awake, alert and oriented x3. Assessment: Acute on chronic hypoxic respiratory failure Acute on chronic diastolic heart failure Possible pneumonia Diabetes mellitus type 2 Hypertension Hyperlipidemia Plan: Continue patient's home cardiac medications Continue IV Lasix 40 mg daily Monitor I&O, daily weights, electrolytes and renal function Obtain 2-D echocardiogram and Doppler study to assess cardiac structure and function Further recommendations to follow based upon clinical course Thank you kindly for this consultation. Nurse practitioner note has been reviewed, I agree with documented findings and plan of care. Patient was seen and examined. Past Medical History Past Medical History: COPD, Diabetes Mellitus, Hyperlipidemia, Hypertension Additional Past Medical History / Comment(s): pt states she is a diet controlled diabetic. doesn't check glucose at home. History of Any Multi-Drug Resistant Organisms: None Reported Past Surgical History: Tubal Ligation Past Anesthesia/Blood Transfusion Reactions: No Reported Reaction Past Psychological History: Anxiety, Depression, Panic Disorder Past Alcohol Use History: None Reported Past Drug Use History: None Reported - Past Family History Mother Additional Family Medical History / Comment(s): suicide Medications and Allergies Home Medications Medication Instructions Recorded Confirmed Type Albuterol Sulfate [Ventolin HFA] 1 - 2 puff INHALATION RT-Q6H PRN 12/31/13 04/06/23 History Atorvastatin [Lipitor] 80 mg PO HS 05/07/17 04/06/23 History Cyanocobalamin [Vitamin B-12] 1,000 mcg PO DAILY@0800 06/18/17 04/06/23 History Loratadine [Claritin] 10 mg PO DAILY@0800 07/07/17 04/06/23 History Potassium Chloride [Klor-Con 10] 10 meq PO DAILY@0800 08/14/17 04/06/23 History Fluticasone/Vilanterol [Breo 1 puff INHALATION RT-DAILY 04/06/23 04/06/23 History Ellipta 100-25 Mcg Inhaler] Furosemide [Lasix] 20 mg PO BID@0800,1700 04/06/23 04/06/23 History Magnesium 250 mg PO DAILY@1700 04/06/23 04/06/23 History Tiotropium [place] [Spiriva] 18 mcg INHALATION RT-DAILY 04/06/23 04/06/23 History amLODIPine [Norvasc] 10 mg PO DAILY@0800 04/06/23 04/06/23 History carvediloL [Coreg] 12.5 mg PO BID@0800,1700 04/06/23 04/06/23 History Allergies Allergy/AdvReac Type Severity Reaction Status Date / Time amoxicillin [Amoxicillin] Allergy Rash/Hives Verified 04/06/23 20:15 azithromycin Allergy Itching Verified 04/06/23 20:15 Physical Exam Vitals: Vital Signs Temp Pulse Pulse Resp BP Pulse Ox 04/08/23 12:31 86 04/08/23 12:22 86 04/08/23 11:10 62 17 126/67 100 04/08/23 09:40 98 F 78 18 137/70 93 L 04/08/23 08:22 84 04/08/23 08:13 95 04/08/23 08:12 84 04/08/23 04:42 98 F 82 18 124/67 96 04/08/23 02:00 78 18 04/08/23 00:00 98.1 F 79 18 118/56 95 04/07/23 21:31 80 04/07/23 21:20 76 04/07/23 20:30 88 18 04/07/23 20:27 97.9 F 91 20 150/72 94 L 04/07/23 15:45 97.0 F L 82 16 152/70 92 L 04/07/23 15:42 77 18 04/07/23 15:31 74 18 94 L Intake and Output 04/07/23 04/08/23 04/08/23 22:59 06:59 14:59 Intake Total 240 320 Output Total 300 425 180 Balance -60 -425 140 Intake: Oral 240 320 Output: Urine 300 425 180 Other: Voiding Method Toilet Toilet Toilet # Voids 1 1 Weight 84.7 kg 84.7 kg Results 04/08/23 07:24 04/08/23 07:24 CBC 04/08/23 Range/Units 07:24 WBC 13.4 H (3.8-10.6) k/uL RBC 3.65 L (3.80-5.40) m/uL Hgb 10.5 L (11.4-16.0) gm/dL Hct 32.8 L (34.0-46.0) % Plt Count 236 (150-450) k/uL Comprehensive Metabolic Panel 04/08/23 Range/Units 07:24 Sodium 140 (137-145) mmol/L Potassium 4.1 (3.5-5.1) mmol/L Chloride 103 (98-107) mmol/L Carbon Dioxide 31 H (22-30) mmol/L BUN 28 H (7-17) mg/dL Creatinine 0.78 (0.52-1.04) mg/dL Glucose 172 H (74-99) mg/dL Calcium 9.3 (8.4-10.2) mg/dL Current Medications Generic Name Dose Route Start Last Admin Trade Name Freq PRN Reason Stop Dose Admin Acetaminophen 650 mg 04/07/23 09:08 Acetaminophen Tab 325 Mg Tab PO Q6HR PRN Mild Pain (Scale 1 to 3) Albuterol/Ipratropium 3 ml 04/06/23 18:25 04/07/23 15:29 Ipratropium-Albuterol 3 Ml Neb INHALATION 3 ml RT-Q2H PRN Administration Shortness Of Breath Or Wheezing Amlodipine Besylate 10 mg 04/07/23 10:00 04/08/23 09:44 Amlodipine 10 Mg Tab PO 10 mg DAILY@0800 DIXON Administration Atorvastatin Calcium 80 mg 04/06/23 23:45 04/07/23 20:28 Atorvastatin 80 Mg Tab PO 80 mg HS DIXON Administration Benzonatate 100 mg 04/07/23 09:08 Benzonatate 100 Mg Cap PO TID PRN Cough Budesonide/Formoterol Fumarate 2 puff 04/07/23 10:00 04/08/23 08:08 Symbicort 80-4.5 Mcg Inhaler INHALATION 2 puff RT-BID DIXON Administration Carvedilol 12.5 mg 04/07/23 09:00 04/08/23 09:44 Carvedilol 12.5 Mg Tab PO 12.5 mg BID DIXON Administration Cyanocobalamin 1,000 mcg 04/07/23 10:00 04/08/23 09:45 Cyanocobalamin 500 Mcg Tab PO 1,000 mcg DAILY@0800 DIXON Administration Enoxaparin Sodium 40 mg 04/08/23 09:00 04/08/23 09:46 Enoxaparin 40 Mg/0.4 Ml Syringe SQ 40 mg DAILY DIXON Administration Furosemide 40 mg 04/07/23 09:15 04/08/23 09:45 Furosemide 10 Mg/Ml 4 Ml Vial IV 40 mg DAILY DIXON Administration Guaifenesin 600 mg 04/07/23 09:15 04/08/23 09:44 Guaifenesin 600 Mg Tablet.Er PO 600 mg Q12HR DIXON Administration Doxycycline Hyclate 100 mg/ 100 mls @ 100 mls/hr 04/07/23 10:00 04/08/23 09:45 Sodium Chloride IVPB 100 mls/hr Q12HR DIXON Administration Protocol Ceftriaxone Sodium 1 gm/ 50 mls @ 100 mls/hr 04/07/23 14:30 04/08/23 09:45 Sodium Chloride IVPB 100 mls/hr Q24HR DIXON Administration Protocol Ipratropium [place] 0.5 mg 04/07/23 12:00 04/08/23 12:22 Ipratropium 0.5 Mg/2.5 Ml Nebu INHALATION 0.5 mg RT-QID DIXON Administration Loratadine 10 mg 04/07/23 10:00 04/08/23 09:44 Loratadine 10 Mg Tab PO 10 mg DAILY@0800 DIXON Administration Magnesium Oxide 200 mg 04/07/23 17:00 04/07/23 17:10 Magnesium Oxide 400 Mg Tab PO 200 mg DAILY@1700 DIXON Administration Methylprednisolone Sodium Succinate 60 mg 04/07/23 09:00 04/08/23 09:45 Methylprednisolone Sod Succi 125 Mg/2 Ml Vial IV 60 mg DAILY DIXON Administration Miscellaneous Information 1 each 04/06/23 18:26 Pneumonia Protocol Utilized 1 Each Misc PO ONCE PRN Per Protocol Naloxone HCl 0.2 mg 04/07/23 09:08 Naloxone 0.4 Mg/Ml 1 Ml Vial IVP Q2M PRN Opioid Reversal Potassium Chloride 10 meq 04/07/23 10:00 04/08/23 09:44 Potassium Chloride Er 10 Meq Tab.Er.Prt PO 10 meq DAILY@0800 DIXON Administration Intake and Output 04/07/23 04/08/23 04/08/23 22:59 06:59 14:59 Intake Total 240 320 Output Total 300 425 180 Balance -60 -425 140 Intake: Oral 240 320 Output: Urine 300 425 180 Other: Voiding Method Toilet Toilet Toilet # Voids 1 1 Weight 84.7 kg 84.7 kg Patient Weight 04/09/23 06:59 Weight 84.7 kg 04/08/23 07:24 04/08/23 07:24
--- NOTE | 2023-04-08 18:00 | CA ---
Transthoracic Echo Report Name: Bina Padron Age: 72 Gender: F : 1950 Exam Date: 04/08/2023 09:07 Exam Location: [place] [facility] Ht (in): 62 Wt (lb): 185 Ordering Physician: Gabe Zaman Attending/Referring Phys: [employer] Leida Kelly RDCS Procedure CPT: Indications: chf Cardiac Hx: Technical Quality: Fair Contrast 1: Total Dose (mL): Contrast 2: Total Dose (mL): MEASUREMENTS (Male / Female) Normal Values 2D ECHO LV Diastolic Diameter PLAX 4.8 cm 4.2 - 5.9 / 3.9 - 5.3 cm LV Systolic Diameter PLAX 3.1 cm IVS Diastolic Thickness 1.5 cm 0.6 - 1.0 / 0.6 - 0.9 cm LVPW Diastolic Thickness 1.3 cm 0.6 - 1.0 / 0.6 - 0.9 cm LV Relative Wall Thickness 0.6 RV Internal Dim ED PLAX 3.7 cm LA Systolic Diameter LX 4.4 cm 3.0 - 4.0 / 2.7 - 3.8 cm M-MODE Aortic Root Diameter MM 3.0 cm MV E Point Septal Separation 0.3 cm AV Cusp Separation MM 1.7 cm DOPPLER AV Peak Velocity 199.7 cm/s AV Peak Gradient 15.9 mmHg AV Mean Velocity 113.6 cm/s AV Mean Gradient 6.6 mmHg AV Velocity Time Integral 37.2 cm LVOT Peak Velocity 125.3 cm/s LVOT Peak Gradient 6.3 mmHg MV Area PHT 2.7 cm??? Mitral E Point Velocity 122.4 cm/s Mitral A Point Velocity 140.4 cm/s Mitral E to A Ratio 0.9 MV Deceleration Time 277.0 ms MV E' Velocity 9.4 cm/s Mitral E to MV E' Ratio 13.0 TR Peak Velocity 357.4 cm/s TR Peak Gradient 51.1 mmHg Right Ventricular Systolic Press 56.1 mmHg FINDINGS Left Ventricle Left ventricular ejection fraction is estimated at 55-60 %. Left ventricular cavity size normal. Moderate concentric left ventricular hypertrophy. Right Ventricle Mild right ventricular dilatation. Severe pulmonary hypertension. Right ventricular systolic pressure estimated at 56 mm hg. Right Atrium Normal right atrial size. Left Atrium Moderately increased left atrial diameter. Mildly increased left atrial area. Mitral Valve Mitral valve thickened. Moderate mitral annular calcification. Mild mitral regurgitation. Aortic Valve Aortic valve not well visualized. Mild aortic stenosis with a peak gradient of 16 mmHg and a mean gradient of 7 mmHg. Tricuspid Valve Tricuspid valve not well visualized. Aufu-py-otigrime tricuspid regurgitation. Pulmonic Valve Pulmonic valve not well visualized. Pericardium No pericardial effusion. Aorta Normal size aortic root and proximal ascending aorta. CONCLUSIONS Normal LV systolic function Severe pulmonary hypertension Mild mitral regurgitation Mild aortic stenosis Mild to moderate tricuspid regurgitation Previewed by: Dr. Wilver Christensen MD (Electronically Signed) Final Date: 08 April 2023 17:59
[2023-04-08] MEDS: ATORVASTATIN 80 MG TAB PO SCH (21:30)
[2023-04-09 07:04] LABS: HCT 33.2 % (34.0-46.0); HGB 10.8 gm/dL (11.4-16.0); MCHC 32.4 g/dL (31.0-37.0); MCV 89.7 fL (80.0-100.0); Mean Platelet Volume 9.3; Platelet Count 256 k/uL (150-450); RBC 3.71 m/uL (3.80-5.40); RDW 14.4 % (11.5-15.5); WBC 11.9 k/uL (3.8-10.6)
[2023-04-09 07:18] LABS: African American GFR (CKD) >90 (>60 ml/min/1.73 sqM); Anion Gap 6 mmol/L; Blood Urea Nitrogen 26 mg/dL (7-17); C Reactive Protein 1.8 mg/dL (<1.0); Calcium 9.4 mg/dL (8.4-10.2); Carbon Dioxide 35 mmol/L (22-30); Chloride 99 mmol/L (98-107); Glucose 144 mg/dL (74-99); Non-African American GFR(CKD) 89 (>60 ml/min/1.73 sqM); Potassium 3.9 mmol/L (3.5-5.1); Sodium 140 mmol/L (137-145)
[2023-04-09 07:24] LABS: NT-Pro-B-Type Natriuretic Pept 1700 pg/mL
[2023-04-09] MEDS: guaiFENesin 600 MG TABLET.ER PO SCH (09:13)
[2023-04-09] MEDS: POTASSIUM CHLORIDE ER 10 MEQ TAB.ER.PRT PO SCH (09:13)
[2023-04-09] MEDS: CYANOCOBALAMIN 500 MCG TAB PO SCH (09:13)
[2023-04-09] MEDS: DOXYCYCLINE 100 MG in SODIUM CHLORIDE 0.9% 100 ML IVPB SCH (09:13)
[2023-04-09] MEDS: LORATADINE 10 MG TAB PO SCH (09:14)
[2023-04-09] MEDS: carvediloL 12.5 MG TAB PO SCH (09:14)
[2023-04-09] MEDS: FUROSEMIDE 10 MG/ML 4 ML VIAL IV SCH (09:14)
[2023-04-09] MEDS: methylPREDNISolone SOD SUCCI 125 MG/2 ML VIAL IV SCH (09:14)
[2023-04-09] MEDS: ENOXAPARIN 40 MG/0.4 ML SYRINGE SQ SCH (09:14)
[2023-04-09] MEDS: amLODIPine 10 MG TAB PO SCH (09:14)
[2023-04-09] MEDS: SYMBICORT 80-4.5 MCG INHALER INHALATION SCH (09:22)
[2023-04-09] MEDS: IPRATROPIUM 0.5 MG/2.5 ML NEBU INHALATION SCH ×3 (09:23→15:40)
[2023-04-09 10:56] VITALS: TEMP 97.9
--- NOTE | 2023-04-09 11:23 | P.DS ---
Providers Date of admission: 04/06/23 18:16 Expected date of discharge: 04/09/23 Attending physician: Gold Nolen Consults: 04/07/23 09:06 Consult Physician Routine Consulting Provider: Ernesto Day Consult Reason/Comments: CHF exacerbation Do you want consulting provider notified?: Yes 04/07/23 09:07 Consult Physician Routine Consulting Provider: Ursula Apodaca Consult Reason/Comments: Acute hypoxic respiratory failure COPD exacerbation Do you want consulting provider notified?: Yes Primary care physician: [facility] Course: * 72-year-old lady with past medical history significant for hypertension, COPD, congestive heart failure presents to the emergency department with complains of shortness of breath. Patient was sent from an urgent care for evaluation with chest x-ray was done and there was a concern for pneumonia. At the time of presentation in ER patient was noted to have low-grade temperature of 99.9. Patient has been complaining of shortness of breath for the last 3 days. Patient does have history of COPD, patient also complained of worsening cough and chest congestion.. Patient does have lower extremity swelling however that has not worsened. * Review of blood work obtained in ER included CBC which were WBC of 8.3 hemoglobin 12 hematocrit of 35 platelet 187. Serum chemistry and a 0.9 PT 10. Sodium 138 potassium 3.9-28 BUN 16 creatinine 0.75 liver profile within normal limits * Patient tested negative for influenza, RSV and Covid * Patient states she has had second episode of pneumonia in 2 months, patient states she has been exposed to sick contacts with her granddaughter having cough recently * Patient was given IV Lasix, IV Solu-Medrol, IV Levaquin in ED and admitted to medical floor for further management with consultation from pulmonary medicine and cardiology * 04/08/23: Patient seen and evaluated bedside, patient states shortness of breath is improved, continue Rocephin and doxycycline, continue IV Lasix con tinue IV Solu-Medrol pulmonary medicine team following wean down on oxygen requirements as tolerated, CRP 3.2 * 04/09/2023: Patient seen and evaluated bedside, patient breathing has improved, CRP trending down, echocardiogram completed shows preserved ejection fraction severe pulmonary hypertension noted as well patient was seen by cardiology and pulmonary medicine. WBC count trending down, serum chemistry essentially improved. Patient to discharge home continue to take Lasix 20 mg oral twice a day, received IV Lasix while inpatient outpatient follow-up with PCP and cardiology recommended REVIEW OF SYSTEMS: Shortness of breath, cough is improved CONSTITUTIONAL: No fever, no malaise, no fatigue. HEENT: No recent visual problems or hearing problems. Denied any sore throat. CARDIOVASCULAR: No chest pain, orthopnea, PND, no palpitations, no syncope. PULMONARY: No shortness of breath, no cough, no hemoptysis. GASTROINTESTINAL: No diarrhea, no nausea, no vomiting, no abdominal pain. NEUROLOGICAL: No headaches, no weakness, no numbness. HEMATOLOGICAL: Denies any bleeding or petechiae. GENITOURINARY: Denies any burning micturition, frequency, or urgency. MUSCULOSKELETAL/RHEUMATOLOGICAL: Denies any joint pain, swelling, or any muscle pain. ENDOCRINE: Denies any polyuria or polydipsia. PHYSICAL EXAMINATION: See below GENERAL: The patient is alert and oriented x3, nasal cannula in place HEENT: Pupils are round and equally reacting to light. EOMI. CARDIOVASCULAR: S1 and S2 present. No murmurs, rubs, or gallops. PULMONARY: Improved. Entry bilaterally no wheezing audible ABDOMEN: Soft, nontender, nondistended, normoactive bowel sounds. No palpable organomegaly. MUSCULOSKELETAL: No joint swelling or deformity. EXTREMITIES: Lower extremity edema noted NEUROLOGICAL: Gross neurological examination did not reveal any focal deficits. Assessment: Assessment and plan * Acute hypoxic respiratory failure * Acute exacerbation of COPD * Acute tracheobronchitis * Acute on chronic congestive heart failure diastolic dysfunction * Severe pulmonary hypertension * In regards to acute hypoxic respiratory failure chest x-ray obtained showed bilateral pulmonary vascular congestion/patient treated with IV Solu-Medrol, Rocephin and doxycycline. Upon discharge transition to oral prednisone and Ceftin and doxycycline to complete 5 day course total received 3 days while inpatient. * In regards to COPD exacerbation/continue breathing treatments continue steroid continue antibiotic * In regards to congestive heart failure/echocardiogram shows preserved ejection fraction, per severe pulmonary hypertension noted received IV Lasix while inpatient patient appears euvolemic continue Lasix 20 mg twice a day upon discharge resting walking pulse ox meter ordered as well * In regards to tracheobronchitis/patient tested negative for RSV, influenza, coronavirus. Continue doxycycline, Ceftin, Mucinex, prednisone Patient Condition at Discharge: Fair Plan - Discharge Summary Discharge Rx Participant: No New Discharge Prescriptions: New cefUROXime axetiL [Ceftin] 500 mg PO BID 2 Days #4 tab predniSONE [Deltasone] 20 mg PO DAILY 2 Days #2 tab guaiFENesin [Mucinex] 600 mg PO Q12HR 5 Days #10 tab Doxycycline [Vibramycin] 100 mg PO BID 2 Days #4 cap Continue Albuterol Sulfate [Ventolin HFA] 1 - 2 puff INHALATION RT-Q6H PRN PRN Reason: Shortness Of Breath Atorvastatin [Lipitor] 80 mg PO HS Cyanocobalamin [Vitamin B-12] 1,000 mcg PO DAILY@0800 Loratadine [Claritin] 10 mg PO DAILY@0800 Potassium Chloride [Klor-Con 10 ER] 10 meq PO DAILY@0800 carvediloL [Coreg] 12.5 mg PO BID@0800,1700 Magnesium 250 mg PO DAILY@1700 Furosemide [Lasix] 20 mg PO BID@0800,1700 Fluticasone/Vilanterol [Breo Ellipta 100-25 Mcg Inhaler] 1 puff INHALATION RT-DAILY amLODIPine [Norvasc] 10 mg PO DAILY@0800 Tiotropium [place] [Spiriva Handihaler] 18 mcg INHALATION RT-DAILY Discharge Medication List Albuterol Sulfate [Ventolin HFA] 1 - 2 puff INHALATION RT-Q6H PRN 12/31/13 [History] Atorvastatin [Lipitor] 80 mg PO HS 05/07/17 [History] Cyanocobalamin [Vitamin B-12] 1,000 mcg PO DAILY@0800 06/18/17 [History] Loratadine [Claritin] 10 mg PO DAILY@0800 07/07/17 [History] Potassium Chloride [Klor-Con 10 ER] 10 meq PO DAILY@0800 08/14/17 [History] Fluticasone/Vilanterol [Breo Ellipta 100-25 Mcg Inhaler] 1 puff INHALATION RT- DAILY 04/06/23 [History] Furosemide [Lasix] 20 mg PO BID@0800,1700 04/06/23 [History] Magnesium 250 mg PO DAILY@1700 04/06/23 [History] Tiotropium [place] [Spiriva [place]hal[place]] 18 mcg INHALATION RT-DAILY 04/06/23 [History] amLODIPine [Norvasc] 10 mg PO DAILY@0800 04/06/23 [History] carvediloL [Coreg] 12.5 mg PO BID@0800,1700 04/06/23 [History] Doxycycline [Vibramycin] 100 mg PO BID 2 Days #4 cap 04/09/23 [Rx] cefUROXime axetiL [Ceftin] 500 mg PO BID 2 Days #4 tab 04/09/23 [Rx] guaiFENesin [Mucinex] 600 mg PO Q12HR 5 Days #10 tab 04/09/23 [Rx] predniSONE [Deltasone] 20 mg PO DAILY 2 Days #2 tab 04/09/23 [Rx] Follow up Appointment(s)/Referral(s): Martinez Saavedra MD [Primary Care Provider] - 1 Week Discharge Disposition: HOME SELF-CARE
--- NOTE | 2023-04-09 11:37 | P.PN ---
Subjective Progress Note Date: 04/09/23 History of present illness: This is a 72-year-old female patient of Dr. Oziel Christensen with past medical history of COPD, chronic hypoxic respiratory failure on home O2, hypertension, hyperlipidemia, chronic diastolic heart failure. We have been asked to evaluate the patient for CHF exacerbation. Patient states that she has had shortness of breath for the past 3-4 days with increased weight and lower extremity edema. She is normally on home O2 for COPD. She also has a fever. She states she had a little bit of sharp chest pain went away. She denies any history of cardiac stents and no cardiac surgeries. EKG sinus rhythm with occasional PVCs. Chest x-ray: Moderate acute cardiopulmonary disease most consistent with moderate CHF. WBC 13.4, hemoglobin 10.5, platelet count 236. INR 0.9. Potassium 4.1, BUN 20 creatinine 0.78. Liver function tests normal. Troponin negative 1. Pro- calcitonin 0.04. ProBNP 870. Influenza A, Saturday B, RSV, Covid 19 not detected. Home cardiac medications: Amlodipine 10 mg daily, atorvastatin 80 mg at bedtime, Coreg 12.5 mg twice daily, Lasix 20 mg twice daily, magnesium 250 mg daily, potassium chloride 10 mEq daily. Lexiscan stress test performed 09/2018 revealed normal myocardial perfusion and function. Echocardiogram performed in the office on 12/12/2022 revealed normal LV size and function with EF of 55%, grade 2 diastolic dysfunction. Moderate concentric left hypertrophy. Mild aortic stenosis, mild mitral regurgitation, moderate tricuspid regurgitation. PAS P 53 mmHg. 04/09 Patient is seen today in follow-up. She states her breathing is about normal for her. She is improvement over the past 2448 hrs. She states she has been up to the bathroom and has not had any worsening of her shortness of breath, no chest pain no lightheadedness or dizziness. She has been on IV Lasix 40 mg daily. She is in a negative fluid balance. Blood pressure 132/77, heart rate in the 60s and 70s, pulse ox 96% on 3 L nasal cannula. Repeat blood work reve als WBC 11.9, hemoglobin 10.8, potassium 3.9, BUN 26 creatinine 0.69. Echocardiogram reveals normal LV systolic function. Severe pulmonary hypertension. Mild mitral regurgitation, mild aortic stenosis, [id number] tricuspid regurgitation. Physical examination: Gen: This is a 72-year-old female. She is resting in bed appears to be comfortable and in no acute distress. VS: reviewed blood pressure 126/67, heart rate in the 70s and 80s, pulse ox 100% on 3 L nasal cannula, afebrile HEENT: Head is atraumatic, normocephalic. Pupils equal, round. Sclerae is anicteric. NECK: Supple. No JVD. . LUNGS: Bilateral wheezing and crackles. No intercostal retractions. HEART: Regular rate and rhythm. No murmur. ABDOMEN: Soft No tenderness. EXTREMITIES: 1+ bilateral pedal edema. No calf tenderness. NEUROLOGICAL: Patient is awake, alert and oriented x3. Assessment: Acute on chronic hypoxic respiratory failure Acute on chronic diastolic heart failure Possible pneumonia Severe pulmonary hypertension Diabetes mellitus type 2 Hypertension Hyperlipidemia Plan: Continue patient's home cardiac medications Transition IV Lasix to oral home dose Patient is cleared for discharge from cardiology and may follow-up with Dr. Oziel Christensen in 2 weeks.. Nurse practitioner note has been reviewed, I agree with documented findings and plan of care. Patient was seen and examined. Objective - Vital Signs Vital signs: Vital Signs Temp 98.1 F 04/09/23 04:00 Pulse 60 04/09/23 04:00 Resp 16 04/09/23 04:00 BP 131/71 04/09/23 04:00 Pulse Ox 94 L 04/09/23 04:00 FiO2 50 04/06/23 20:07 Intake & Output 04/08/23 04/09/23 04/09/23 18:59 06:59 18:59 Intake Total 556 10 Output Total 1780 725 Balance -1224 -715 Weight 84.7 kg Intake: IV 10 Invasive Line 2 10 Oral 556 Output: Urine 1780 725 Other: Voiding Method Toilet Toilet - Labs CBC & Chem 7: 04/09/23 06:33 04/09/23 06:33 Labs: Abnormal Lab Results - Last 24 Hours (Table) 04/09/23 04/09/23 Range/Units 06:33 06:33 WBC 11.9 H (3.8-10.6) k/uL RBC 3.71 L (3.80-5.40) m/uL Hgb 10.8 L (11.4-16.0) gm/dL Hct 33.2 L (34.0-46.0) % Carbon Dioxide 35 H (22-30) mmol/L BUN 26 H (7-17) mg/dL Glucose 144 H (74-99) mg/dL C-Reactive Protein 1.8 H (<1.0) mg/dL Microbiology - Last 24 Hours (Table) 04/06/23 19:05 Blood Culture - Preliminary Blood 04/06/23 19:15 Blood Culture - Preliminary Blood
--- NOTE | 2023-04-09 13:53 | P.PN ---
Subjective Progress Note Date: 04/09/23 72-year-old female patient, hospitalized for shortness of breath. The patient also COPD, hypertension hyperlipidemia and diabetes mellitus type 2. The patient was initially seen at the urgent care and the patient was sent over to the hospital for concerns of a pneumonia. The patient a temperature of 99.9. The patient has been complaining of shortness of breath for the past 3 days. The patient had increased cough and congestion. The patient also had some chronic lower lower extremity edema without any interval worsening. The viral screening was negative. The white cell count was at 8.3 with a hemoglobin of 12 and a platelet count of 187. Normal cognition profile. Normal electrolytes. Normal LFTs. ProBNP level is at 87. Troponins are negative the chest x-ray is consistent with increased pulmonary vessel markings and it's more suggestive of CHF than pneumonia. The patient is currently on doxycycline. The patient is on DuoNeb updrafts and IV Solu-Medrol. Patient is also on Lasix 40 mg IV every 24 hours. Initially, the patient was started on oxygen at 6 L nasal cannula and the patient was brought up to 15 L nasal cannula for hypoxic respiratory failure. Current pulse ox is 95%. Breathing is nonlabored. The patient is seen today 04/08/2023 in follow-up on the selective care unit. She is resting comfortably in bed. She is currently maintaining O2 saturations 90s on 3 L/m per nasal cannula. She is feeling quite a bit better. She is being treated for congestive heart failure and possible pneumonia. Blood cultures reveal no growth. White count 13.4. Hemoglobin 10.5. Platelets 236. Sodium 140. Potassium 4.1. Bicarb 31. BUN 28. Creatinine 0.78. Glucose 172. Pro calcitonin pending. Echocardiogram pending. Remains on antibiotics in the form of ceftriaxone and doxycycline. Continue on Symbicort, DuoNeb inhalations, Solu-Medrol. She remains on IV diuretics. No accurate I&O. The patient is seen today 04/09/2023 in follow-up on the selective care unit. She is currently sitting up in bed. Awake and alert in no acute distress. Feeling better today compared to yesterday. She is maintaining good O2 saturations in the mid 90s on 3 L/m per nasal cannula. She's been afebrile. Hemodynamically stable. Blood cultures revealed no growth. White count 11.9. Hemoglobin 10.8. Platelets 256. Sodium 140. Potassium 3.9. Bicarb 35. BUN 3026. Creatinine 0.69. Glucose 144. ProBNP 1700. Pro calcitonin 0.04. She is continued on Symbicort, Atrovent. Antibiotics in the form of doxycycline and ceftriaxone, Solu-Medrol and Mucinex. Lovenox for DVT prophylaxis. Objective - Vital Signs Vital signs: Vital Signs Temp 97.9 F 04/09/23 09:10 Pulse 65 04/09/23 12:16 Resp 18 04/09/23 09:10 BP 132/77 04/09/23 09:10 Pulse Ox 96 04/09/23 09:27 FiO2 50 04/06/23 20:07 Intake & Output 04/08/23 04/09/23 04/09/23 18:59 06:59 18:59 Intake Total 556 10 118 Output Total 1780 725 Balance -1224 -715 118 Weight 84.7 kg Intake: IV 10 Invasive Line 2 10 Oral 556 118 Output: Urine 1780 725 Other: Voiding Method Toilet Toilet Toilet - Exam GENERAL EXAM: Alert, 72-year-old female, up in a chair, on 3 L nasal cannula, in no apparent distress. HEAD: Normocephalic. EYES: Normal reaction of pupils, equal size. NOSE: Clear with pink turbinates. THROAT: No erythema or exudates. NECK: No masses, no JVD. CHEST: No chest wall deformity. LUNGS: Equal air entry with crackles in the bilateral bases. CVS: S1 and S2 normal with no audible murmur, regular rhythm. ABDOMEN: No hepatosplenomegaly, normal bowel sounds, no guarding or rigidity. SPINE: No scoliosis or deformity SKIN: No rashes CENTRAL NERVOUS SYSTEM: No focal deficits, tone is normal in all 4 extremities. EXTREMITIES: There is no peripheral edema. No clubbing, no cyanosis. Peripheral pulses are intact. - Labs CBC & Chem 7: 04/09/23 06:33 04/09/23 06:33 Labs: Abnormal Lab Results - Last 24 Hours (Table) 04/09/23 04/09/23 Range/Units 06:33 06:33 WBC 11.9 H (3.8-10.6) k/uL RBC 3.71 L (3.80-5.40) m/uL Hgb 10.8 L (11.4-16.0) gm/dL Hct 33.2 L (34.0-46.0) % Carbon Dioxide 35 H (22-30) mmol/L BUN 26 H (7-17) mg/dL Glucose 144 H (74-99) mg/dL C-Reactive Protein 1.8 H (<1.0) mg/dL Microbiology - Last 24 Hours (Table) 04/06/23 19:05 Blood Culture - Preliminary Blood 04/06/23 19:15 Blood Culture - Preliminary Blood Assessment and Plan Assessment: Acute hypoxic respiratory failure, secondary to a combination of COPD, diastolic CHF, improving and FiO2 has been weaned down to 3 L. proBNP 1700. Pro- calcitonin 0.04. COPD maintained on Spiriva and Breo on an outpatient basis and the combination with Ventolin rescue inhaler. Has home oxygen History of diastolic congestive heart failure Diabetes mellitus type 2 Hypertension Hyperlipidemia Chronic anxiety/depression/panic Plan: The patient was seen and evaluated Medications and labs reviewed Procalcitonin within normal limits Echocardiogram reviewed Continue diuretics Continue home pulmonary medications and oxygen Continue on a prednisone taper This patient was seen intermittently by the nurse practitioner I have personally seen and examined the patient, performed the documentation and the assessment and plan as written. Number of minutes spent on the visit: 22.
[2023-04-09 14:16] VITALS: BP 130/75; PULSE 66; RESP 17
== END 2023-04-09 17:47 | disposition home or self-care (01) | DRG 193 ==
LOC: EC 16:23 → 6NMEDSUR 18:16 → OBSVTOIN 18:16 → 4SSUR 20:08 → 3SCARD 20:50
PROVIDERS: ADMIT Hospitalist; ATTEND Hospitalist
DX: J18.9 Pneumonia, unspecified organism (principal); I50.33 Acute on chronic diastolic (congestive) heart failure; J96.01 Acute respiratory failure with hypoxia; J96.21 Acute and chronic respiratory failure with hypoxia; J44.1 Chronic obstructive pulmonary disease with (acute) exacerbation; J44.0 Chronic obstructive pulmonary disease with (acute) lower respiratory infection; I11.0 Hypertensive heart disease with heart failure; E78.5 Hyperlipidemia, unspecified; F17.210 Nicotine dependence, cigarettes, uncomplicated; F32.A Depression, unspecified; F41.0 Panic disorder [episodic paroxysmal anxiety]; I25.10 Atherosclerotic heart disease of native coronary artery without angina pectoris; J20.9 Acute bronchitis, unspecified; Z20.822 Contact with and (suspected) exposure to COVID-19; I08.3 Combined rheumatic disorders of mitral, aortic and tricuspid valves; I27.20 Pulmonary hypertension, unspecified; I49.3 Ventricular premature depolarization; Z79.899 Other long term (current) drug therapy; Z99.81 Dependence on supplemental oxygen; Z88.1 Allergy status to other antibiotic agents; Z98.51 Tubal ligation status
CPT/HCPCS: 36415; 71046; 80048; 80053; 83605; 83880; 84145; 84484; 85025; 85027; 85610; 85730; 86140; 87040; 87636; 93005; 93306; 94640; 94760; 96365; 96366; 96375; 99285